=== PATIENT | female | born 1945 | race Caucasian/White ===

== ENCOUNTER 2019-03-08 17:02 | Emergency (ER) | payer MEDICARE, SELFPAY ==
[2019-03-08] VITALS (32 sets, daily range): BP systolic 98–159; BP diastolic 54–104; PULSE 61–102; RESP 11–33; TEMP 36.6–36.9; O2SAT 89–98
--- NOTE | 2019-03-08 17:01 | W.ED.GENAD ---
Discharge Plan Disposition Patient Disposition: HOME Condition: Improving Discharge Details Chief Complaint: Nausea/Vomit/Diar Clinical Impression: Nausea vomiting and diarrhea, Abdominal pain Primary Care Provider: Conrad Flanagan ED Provider: Tamica Birmingham Home Meds and New Rx's Prescriptions: New prochlorperazine maleate [Compazine] 10 mg tablet 10 mg PO Q8H PRN (Reason: nausea and vomiting) Qty: 6 RF: 0 Continued sertraline 50 MG tablet 100 mg PO HS RF: 0 albuterol sulfate [Proventil HFA] 6.7 GM HFA aerosol inhaler 2 puff Inhalation QID PRN PRNQty: 1 RF: 6 simvastatin 40 MG tablet 40 mg PO QPM RF: 0 cilostazol [Pletal] 50 MG tablet 100 mg PO BID RF: 0 zolpidem 10 MG tablet 10 mg PO HS RF: 0 aspirin 81 MG tablet,delayed release (DR/EC) 81 mg PO HS RF: 0 cyanocobalamin (vitamin B-12) [Vitamin B-12] 1,000 mcg Tablet 1,000 mcg PO DAILY RF: 0 amlodipine 5 mg Tablet 5 mg PO DAILY RF: 0 gabapentin 100 mg Capsule 100 mg PO TID RF: 0 prednisolone 5 mg Tablet 2.5 mg PO Q OTHER DAY RF: 0 Discharge Instructions Instructions: Acute Nausea and Vomiting (ED), Acute Diarrhea (ED), Abdominal Pain (ED) Additional Instructions: Take the Compazine as needed and directed for any nausea or vomiting. Drink plenty of fluids and get plenty of rest. You will receive a call from care management regarding a follow-up appointment with a primary care doctor next week. Return to the emergency department if you develop any worsening or new concerning symptoms. Discharge Data Discharge Physician: Tamica Birmingham Medical Decision Making 73-year-old female with history of COPD, AAA, who presents with nausea, vomiting and diarrhea with lower abdominal pain for the past 2 days. Afebrile. She appears nontoxic. Oxygen saturation 91% on room air, she is a chronic smoker, not on home oxygen. She denies chest pain or shortness of breath. Abdomen soft and nontender. Considering patient's complaint of intermittent abdominal pain with history of AAA, and her age, will place an IV, check screening labs, urinalysis, EKG chest x-ray and CT abdomen and pelvis. 1900 --labs and imaging reviewed and unremarkable. Normal white blood cell count. Potassium 3.4. Lactate 1. Magnesium slightly low at 1.7. Troponin normal. Lipase normal. Chest x-ray notes possible right apical opacity versus atelectasis. CT abdomen and pelvis negative for acute abdominal process. UA pending. She has no complaint of cough, shortness of breath, fever, and normal vital signs, do not suspect pneumonia at this time patient is agreeable. 1944 --urinalysis negative for infection. Patient states she feels much better and is requesting to go home. Will send home with 2 tabs of Compazine as well as prescription. She is staying in the area until May. Patient placed on care management list to arrange for follow-up appointment with a primary care doctor in the next 1 to 2 weeks for reevaluation. Patient was unable to give a stool sample here but can follow-up with the primary care doctor for this if needed. She is advised to return with any worsening symptoms. Medical Records Medical records reviewed: Yes I reviewed the patient's medical records. Imaging Data Radiologic Study: Radiologist's impression: CT Abdomen and Pelvis With Contrast EXAM DATE/TIME: 03/08/2019 5:09 PM CLINICAL HISTORY: 73 years old, female; Nausea and other: Diarrhea; Abdominal pain; Localized; Patient HX: Nausea, lower abd pain, diarrhea TECHNIQUE: Imaging protocol: Axial computed tomography images of the abdomen and pelvis with intravenous contrast. Coronal and sagittal reformatted images were created and reviewed. COMPARISON: CT NECK CHEST ABD WO 03/29/2014 7:20 PM FINDINGS: Lungs: Right posterior lower lobe parenchymal opacity, consistent with pneumonitis and/or atelectasis. Clear left lung base. Pleural space: Tiny posterior pleural effusions. Liver: Small cyst within the right hepatic lobe. Gallbladder and bile ducts: Status post cholecystectomy. Extrahepatic and intrahepatic bile duct dilatation, likely secondary to post cholecystectomy state. Correlate with signs and symptoms of biliary obstruction. Pancreas: Unremarkable. No ductal dilation. Spleen: Unremarkable. No splenomegaly. Adrenals: Normal. No mass. Kidneys and ureters: Unremarkable. No stones. No hydronephrosis. Stomach and bowel: Diffuse fat density wall thickening throughout the colon. This may be seen with chronic inflammatory bowel disease as well as secondary to patient body habitus. No pericolonic inflammatory changes are identified. Indeterminate congested high density rim foci within the colon and distal small bowel. No bowel obstruction. Small gastric hiatus hernia. Appendix: No evidence of appendicitis. Intraperitoneal space: Unremarkable. No free air. No significant fluid collection. Vasculature: Fusiform aneurysm of the infrarenal abdominal aorta with an AP diameter of 3.2 cm. Severe atherosclerosis throughout the abdominal aorta and branch vessels. Lymph nodes: Unremarkable. No enlarged lymph nodes. Bladder: Unremarkable as visualized. Reproductive: Unremarkable as visualized. Bones/joints: No acute fracture. Soft tissues: Unremarkable. IMPRESSION: 1. Fat density wall thickening throughout the colon. This may be seen in the setting of chronic inflammatory bowel disease, as well as secondary to body habitus. 2. Indeterminate congested high density foci within the small bowel and colon without obstruction. 3. Infrarenal abdominal aortic aneurysm, measuring 3.2 cm in AP diameter. 4. Right lower lobe opacity, consistent with pneumonitis and/or atelectasis. XR Chest, 2 Views EXAM DATE/TIME: 03/08/2019 5:09 PM CLINICAL HISTORY: 73 years old, female; Other: Hypoxia, nausea TECHNIQUE: Imaging protocol: XR of the chest, 2 views. COMPARISON: CR CHEST 2 VIEWS PA,LAT 02/09/2016 1:26 PM FINDINGS: Lungs: The lung volumes are increased, consistent with COPD. There is added opacity in the medial right upper lobe, suspicious for right apical pneumonia and/or atelectasis. Followup imaging to confirm resolution of this abnormality is recommended as clinically warranted. Pleural space: No pleural effusion or pneumothorax. Heart/Mediastinum: Mild cardiomegaly, unchanged. Bones/joints: Unremarkable. IMPRESSION: 1. COPD. 2. Right apical opacity suspicious for apical pneumonia and/or atelectasis. Followup imaging to confirm resolution of this abnormality is recommended as clinically warranted. Lab Data Lab results reviewed: Yes I reviewed the patient's lab results. Laboratory Tests Range/Units 03/08/19 03/08/19 03/08/19 17:17 17:17 17:17 WBC (4.4-10.8) k/cumm 6.07 RBC (4.00-5.20) m/cumm 4.02 Hgb (12.0-15.5) g/dL 12.4 Hct (36.0-46.0) % 38.3 MCV (80-95) fL 95.3 H MCH (27.0-33.0) pg 30.8 MCHC (32.0-36.0) g/dL 32.4 RDW (11.7-14.6) % 14.0 Plt Count (130-400) x1000/uL 230 MPV (8.0-11.0) fL 9.4 Immature Gran % 0.5 Neutrophils % 89.1 Lymphocytes % 7.4 Monocytes % 2.8 Eosinophils % 0.0 Basophils % 0.2 Absolute Neutrophils (1.2-6.7) k/cumm 5.41 Absolute Lymphocytes (1.2-3.4) k/cumm 0.45 L Absolute Monocytes (0.11-0.7) k/cumm 0.17 Absolute Eosinophils (0.0-0.7) k/cumm 0.00 Absolute Basophils (0.0-0.2) k/cumm 0.01 Sodium (136-145) mmol/L 138 Potassium (3.5-5.1) mmol/L 3.4 L Chloride (98-107) mmol/L 101 Carbon Dioxide (21.0-32.0) mmol/L 24.8 Anion Gap (3-11) mmol/L 12.2 H BUN (7-18) mg/dL 12 Creatinine (0.55-1.02) mg/dL 1.16 H Estimated GFR/1.73 m2 (mL/min/1.73m2) 45.92 Glucose (70-100) mg/dL 104 H Lactate (0.6-1.4) mmol/l Calcium (8.5-10.1) mg/dL 8.2 L Magnesium (1.8-2.4) mg/dL 1.7 L Total Bilirubin (0.2-1.0) mg/dL 0.2 AST (15-37) U/L 20 ALT (12-78) U/L 14 Alkaline Phosphatase (46-116) U/L 69 Troponin I (0.00-0.06) ng/mL < 0.05 Total Protein (6.4-8.2) g/dL 6.2 L Albumin (3.4-5.0) g/dL 3.0 L Lipase (73-393) U/L 100 Urine Color (Yellow) Urine Clarity (Clear) Urine pH (5-8) Ur Specific [place] (1.005-1.025) Urine Protein (Negative) mg/dL Urine Ketones (Negative) mg/dL Urine Blood (Negative) Urine Nitrite (Negative) Urine Bilirubin (Negative) Urine Urobilinogen (Up TO 0.2) EU/dL Ur Leukocyte Esterase (Negative) Urine RBC (0-2) Urine WBC (0-5) HPF Ur Epithelial Cells (Negative) HPF Urine Crystals (Negative) HPF Urine Bacteria (Negative) HPF Urine Casts (Negative) LPF Urine Mucus (Negative) Urine Other (Negative) Ur Culture Indicated? Urine Glucose (Negative) mg/dL Range/Units 03/08/19 03/08/19 17:17 19:29 WBC (4.4-10.8) k/cumm RBC (4.00-5.20) m/cumm Hgb (12.0-15.5) g/dL Hct (36.0-46.0) % MCV (80-95) fL MCH (27.0-33.0) pg MCHC (32.0-36.0) g/dL RDW (11.7-14.6) % Plt Count (130-400) x1000/uL MPV (8.0-11.0) fL Immature Gran % Neutrophils % Lymphocytes % Monocytes % Eosinophils % Basophils % Absolute Neutrophils (1.2-6.7) k/cumm Absolute Lymphocytes (1.2-3.4) k/cumm Absolute Monocytes (0.11-0.7) k/cumm Absolute Eosinophils (0.0-0.7) k/cumm Absolute Basophils (0.0-0.2) k/cumm Sodium (136-145) mmol/L Potassium (3.5-5.1) mmol/L Chloride (98-107) mmol/L Carbon Dioxide (21.0-32.0) mmol/L Anion Gap (3-11) mmol/L BUN (7-18) mg/dL Creatinine (0.55-1.02) mg/dL Estimated GFR/1.73 m2 (mL/min/1.73m2) Glucose (70-100) mg/dL Lactate (0.6-1.4) mmol/l 1.0 Calcium (8.5-10.1) mg/dL Magnesium (1.8-2.4) mg/dL Total Bilirubin (0.2-1.0) mg/dL AST (15-37) U/L ALT (12-78) U/L Alkaline Phosphatase (46-116) U/L Troponin I (0.00-0.06) ng/mL Total Protein (6.4-8.2) g/dL Albumin (3.4-5.0) g/dL Lipase (73-393) U/L Urine Color (Yellow) Yellow Urine Clarity (Clear) Clear Urine pH (5-8) 6.0 Ur Specific [place] (1.005-1.025) 1.015 Urine Protein (Negative) mg/dL 30 H Urine Ketones (Negative) mg/dL 15 H Urine Blood (Negative) Small H Urine Nitrite (Negative) Negative Urine Bilirubin (Negative) Negative Urine Urobilinogen (Up TO 0.2) EU/dL 0.2 Ur Leukocyte Esterase (Negative) Negative Urine RBC (0-2) 3-5 H Urine WBC (0-5) HPF Negative Ur Epithelial Cells (Negative) HPF Rare Urine Crystals (Negative) HPF Negative Urine Bacteria (Negative) HPF Few Urine Casts (Negative) LPF Negative Urine Mucus (Negative) Moderate Urine Other (Negative) Negative Ur Culture Indicated? No Urine Glucose (Negative) mg/dL Negative ECG Data Interpretation: Rate of 71, sinus. Right bundle branch block which appears new compared to EKG available here from 2016. No acute ST elevation or depression. QTc 469. QRS 132. HPI General Mode of arrival: EMS. Date/Time Provider Initiated Documentation: 03/08/19 17:07. Limitations to Documentation: no limitations. Information obtained by: patient. HPI Narrative: Patient is a 73-year-old female with history of COPD, hypertension, hyperlipidemia, AAA and cholecystectomy and hysterectomy who presents with nausea, vomiting, diarrhea and chills for the past 2 days. She states she is only vomited small amounts couple times and has mainly been clear or bile. She states her diarrhea has been watery and brown. She has not taken her temperature and is not sure of the fever. She states she has had intermittent lower abdominal discomfort but denies any at present. She denies any recent travel, recent antibiotics or sick contacts. She denies chest pain or shortness of breath. Related Data Home Medications Medication Instructions Recorded Confirmed cilostazol [Pletal] 100 mg PO BID 03/29/14 03/08/19 simvastatin 40 mg PO QPM 03/29/14 03/08/19 zolpidem 10 mg PO HS 03/29/14 03/08/19 aspirin 81 mg PO HS 04/21/14 03/08/19 sertraline 100 mg PO HS tab-cap 02/12/16 03/08/19 albuterol sulfate [Proventil HFA] 2 puff INHALATION QID PRN PRN #1 04/13/16 03/08/19 [email or web address].[email or web address] amlodipine 5 mg PO DAILY 03/08/19 03/08/19 cyanocobalamin (vitamin B-12) 1,000 mcg PO DAILY 03/08/19 03/08/19 [Vitamin B-12] gabapentin 100 mg PO TID 03/08/19 03/08/19 prednisolone 2.5 mg PO Q OTHER DAY 03/08/19 03/08/19 prochlorperazine maleate 10 mg PO Q8H PRN #6 tab 03/08/19 [Compazine] Previous Rx's Medication Instructions Recorded prochlorperazine maleate 10 mg PO Q8H PRN #6 tab 03/08/19 [Compazine] Allergies Allergy/AdvReac Type Severity Reaction Status Date / Time Penicillins Allergy Severe Asthma Unverified 04/13/16 10:23 attack per Pt lidocaine AdvReac Severe Dizziness/L Unverified 04/13/16 10:27 ightheade Sulfa (Sulfonamide AdvReac Intermediate Wheezing, Unverified 04/13/16 10:23 Antibiotics) rash Review of Systems Review of Systems All systems reviewed & are unremarkable except as noted in HPI and below Constitutional Reports as per HPI, Denies chills and Denies fever(s) Eyes Denies blurry vision ENT Denies dizziness, Denies sore throat and Denies throat swelling Cardiovascular Denies chest pain and Denies dyspnea Respiratory Denies cough and Denies dyspnea Gastrointestinal Reports abdominal pain, Reports diarrhea and Reports vomiting Genitourinary Denies hematuria and Denies dysuria Musculoskeletal Denies back pain and Denies numbness Integumentary/Breasts Denies lesions and Denies rash Neurologic Denies dizziness, Denies focal weakness and Denies numbness Allergic/Immunologic Denies throat swelling [facility] Medical History Abdominal aortic aneurysm Cholelithiasis COPD (chronic obstructive pulmonary disease) Depressed GERD (gastroesophageal reflux disease) Hiatal hernia Hyperlipidemia Surgical History Abdominal hysterectomy Cholecystectomy Endoscopy Intra-Articular, Open Family History Mother Personal history of malignant neoplasm Father No problems noted. Brother No problems noted. Brother No problems noted. Grandfather No problems noted. Grandfather No problems noted. Grandmother Heart disease Asthma Grandmother No problems noted. Son Aneurysm Stroke Son Depression Daughter No problems noted. FAMILY HISTORY Kidney stones Gallstones COPD (chronic obstructive pulmonary disease) Social History Smoking/Tobacco Use Status: Current every day Alcohol Intake: never Drug use: Never Substance use type: does not use Do you feel safe at home: Yes Do you feel safe in your relationship?: Yes Exam Const General: cooperative and no acute distress HENMT Head: normal to inspection Face and sinus: normal facial exam Eyes General: appearance normal, both eyes and all related structures EOM: EOM intact bilaterally Neck Neck: normal visual inspection and No submandibular swelling Lymphatic: no lymphadenopathy noted Chest Chest: normal inspection of the chest and no tenderness Resp Effort & Inspection: normal respiratory effort and able to speak in complete sentences Auscultation: clear to auscultation bilaterally Cardio Rate: regular rate Rhythm: regular rhythm GI Inspection: normal to inspection Palpation: soft, not firm, not rigid and nontender Auscultation: normal bowel sounds Skin General skin exam: no rashes or lesions noted Neuro General: alert, awake and oriented x3 Cognition: normal cognition Speech: speech normal Motor: muscle tone normal throughout Sensory Exam: no sensory deficits noted Extrem General: normal to inspection, full ROM, normal capillary refill, no calf tenderness bilaterally and no edema Psych Appearance: grossly normal Mental Status: mental status grossly normal Speech and Movement: speech and movement normal Affect: normal affect
--- NOTE | 2019-03-08 17:07 | DI.CT_ITS ---
SYMPTOM/DIAGNOSIS: NAUSEA, LOWER ABD PAIN, DIARRHEA CT ABDOMEN AND PELVIS: Post contrast examination was performed. Small bilateral pleural effusions are seen. There is an infiltrate seen in the right lung base. This may represent atelectasis or pneumonia. The liver is normal in size. There is hepatic cysts present. No suspicious mass is seen. The portal, superior mesenteric and splenic veins are patent. The patient is status post cholecystectomy. Dilatation of the common duct likely reflects post cholecystectomy changes. The pancreas, spleen and adrenal glands are unremarkable. The kidneys are unremarkable as is the urinary bladder. The reproductive organs are unremarkable as visualized. The abdominal aorta shows atherosclerosis. There is a 3.2 cm infrarenal abdominal aortic aneurysm. No significant abdominal or pelvic adenopathy, ascites or pneumoperitoneum is seen. There is diffuse bowel wall thickening which is of low density throughout the colon. This can be seen with an inflammatory bowel disease. No evidence of bowel obstruction is present. No findings to suggest an acute appendicitis are present. High density material is seen within the lumen of the distal small bowel and colon. This likely reflects ingested material. No acute osseous abnormalities identified. IMPRESSION: 1. Fat density bowel wall thickening throughout the colon. This can be seen with inflammatory bowel disease or secondary to body habitus. 2. Presumed ingested high density material within the small bowel and colon. No evidence of obstruction. 3. 3.2 cm infrarenal abdominal aortic aneurysm. 4. Right lower lobe opacity in the lungs suspicious for pneumonia or atelectasis.
[2019-03-08] MEDS: Normal Saline 250 ML IV (17:21)
[2019-03-08 17:32] LABS: Abs Immature Grans 0.03 k/cumm (0.0-0.09); Absolute Basophil Count 0.01 k/cumm (0.0-0.2); Absolute Lymphocyte Count 0.45 k/cumm (1.2-3.4); Absolute Monocyte Count 0.17 k/cumm (0.11-0.7); Absolute Neutrophil Count 5.41 k/cumm (1.2-6.7); Basophils % 0.2; HCT 38.3 % (36.0-46.0); HGB 12.4 g/dL (12.0-15.5); Immature Grans % 0.5; Lymphocytes % 7.4; Mean Corp. HGB Concentration 32.4 g/dL (32.0-36.0); Mean Corpuscular Hemoglobin 30.8 pg (27.0-33.0); Mean Corpuscular Volume 95.3 fL (80-95); Mean Platelet Volume 9.4 fL (8.0-11.0); Monocytes % 2.8; Neutrophils % 89.1; Platelet Count 230 x1000/uL (130-400); RBC 4.02 m/cumm (4.00-5.20); White Blood Cell Count 6.07 k/cumm (4.4-10.8)
[2019-03-08 17:50] LABS: Lipase 100 U/L (73-393)
[2019-03-08 17:58] LABS: ALT 14 U/L (12-78); AST 20 U/L (15-37); Alkaline Phosphatase 69 U/L (46-116); Anion Gap 12.2 mmol/L (3-11); BUN 12 mg/dL (7-18); Bilirubin, Total 0.2 mg/dL (0.2-1.0); CO2 24.8 mmol/L (21.0-32.0); CREATININE 1.16 mg/dL (0.55-1.02); Calcium 8.2 mg/dL (8.5-10.1); Chloride 101 mmol/L (98-107); Estimated GFR 45.92 (mL/min/1.73m2); Glucose 104 mg/dL (70-100); Magnesium 1.7 mg/dL (1.8-2.4); Potassium 3.4 mmol/L (3.5-5.1); Sodium 138 mmol/L (136-145); Total Protein 6.2 g/dL (6.4-8.2); Troponin I < 0.05 ng/mL (0.00-0.06)
[2019-03-08] MEDS: Omnipaque 350 MG/ML 100 ML BTL IJ (18:46)
--- NOTE | 2019-03-08 18:54 | DI.RAD_ITS ---
SYMPTOM/DIAGNOSIS: HYPOXIA, NAUSEA, R/O ACUTE DISEASE CHEST X-RAY: Portable AP view. Comparison 02/09/16 The heart is enlarged but unchanged. Pulmonary vasculature is within normal limits. There is increased opacity in the right lung apex medially. This may be due to patient positioning. Right upper lobe infiltrate or mass cannot be excluded. The lungs are otherwise clear. No effusions or pneumothoraces are identified. There is hyperexpansion of the lungs consistent with COPD. IMPRESSION: Right apical opacity medially. This may be due to patient positioning. A right upper lobe infiltrate cannot be excluded. A follow up examination to document resolution of the finding is recommended.
--- NOTE | 2019-03-08 19:05 | DI.VRAD_ITS ---
EXAM: XR Chest, 2 Views EXAM DATE/TIME: 03/08/2019 5:09 PM CLINICAL HISTORY: 73 years old, female; Other: Hypoxia, nausea TECHNIQUE: Imaging protocol: XR of the chest, 2 views. COMPARISON: CR CHEST 2 VIEWS PA,LAT 02/09/2016 1:26 PM FINDINGS: Lungs: The lung volumes are increased, consistent with COPD. There is added opacity in the medial right upper lobe, suspicious for right apical pneumonia and/or atelectasis. Followup imaging to confirm resolution of this abnormality is recommended as clinically warranted. Pleural space: No pleural effusion or pneumothorax. Heart/Mediastinum: Mild cardiomegaly, unchanged. Bones/joints: Unremarkable. IMPRESSION: 1. COPD. 2. Right apical opacity suspicious for apical pneumonia and/or atelectasis. Followup imaging to confirm resolution of this abnormality is recommended as clinically warranted. Dictated and Authenticated by: Soto Hummel MD. Ordering:NAOMI Davey MD
--- NOTE | 2019-03-08 19:14 | DI.VRAD_ITS ---
EXAM: CT Abdomen and Pelvis With Contrast EXAM DATE/TIME: 03/08/2019 5:09 PM CLINICAL HISTORY: 73 years old, female; Nausea and other: Diarrhea; Abdominal pain; Localized; Patient HX: Nausea, lower abd pain, diarrhea TECHNIQUE: Imaging protocol: Axial computed tomography images of the abdomen and pelvis with intravenous contrast. Coronal and sagittal reformatted images were created and reviewed. COMPARISON: CT NECK CHEST ABD WO 03/29/2014 7:20 PM FINDINGS: Lungs: Right posterior lower lobe parenchymal opacity, consistent with pneumonitis and/or atelectasis. Clear left lung base. Pleural space: Tiny posterior pleural effusions. Liver: Small cyst within the right hepatic lobe. Gallbladder and bile ducts: Status post cholecystectomy. Extrahepatic and intrahepatic bile duct dilatation, likely secondary to post cholecystectomy state. Correlate with signs and symptoms of biliary obstruction. Pancreas: Unremarkable. No ductal dilation. Spleen: Unremarkable. No splenomegaly. Adrenals: Normal. No mass. Kidneys and ureters: Unremarkable. No stones. No hydronephrosis. Stomach and bowel: Diffuse fat density wall thickening throughout the colon. This may be seen with chronic inflammatory bowel disease as well as secondary to patient body habitus. No pericolonic inflammatory changes are identified. Indeterminate congested high density rim foci within the colon and distal small bowel. No bowel obstruction. Small gastric hiatus hernia. Appendix: No evidence of appendicitis. Intraperitoneal space: Unremarkable. No free air. No significant fluid collection. Vasculature: Fusiform aneurysm of the infrarenal abdominal aorta with an AP diameter of 3.2 cm. Severe atherosclerosis throughout the abdominal aorta and branch vessels. Lymph nodes: Unremarkable. No enlarged lymph nodes. Bladder: Unremarkable as visualized. Reproductive: Unremarkable as visualized. Bones/joints: No acute fracture. Soft tissues: Unremarkable. IMPRESSION: 1. Fat density wall thickening throughout the colon. This may be seen in the setting of chronic inflammatory bowel disease, as well as secondary to body habitus. 2. Indeterminate congested high density foci within the small bowel and colon without obstruction. 3. Infrarenal abdominal aortic aneurysm, measuring 3.2 cm in AP diameter. 4. Right lower lobe opacity, consistent with pneumonitis and/or atelectasis. Dictated and Authenticated by: Soto Hummel MD. Ordering:NAOMI Davey MD
[2019-03-08 19:37] LABS: Bilirubin Negative (Negative); Blood Small (Negative); Clarity Clear (Clear); Glucose Negative (Negative); Ketones 15 mg/dL (Negative); Leukocyte Esterase Negative (Negative); Nitrite Negative (Negative); Specific Gravity 1.015 (1.005-1.025); Urobilinogen 0.2 EU/dL (Up TO 0.2)
[2019-03-08 19:47] LABS: Bacteria Few HPF (Negative); C & S Indicated? No; Casts Negative LPF (Negative); Crystals Negative HPF (Negative); Epithelial Cells Rare HPF (Negative); Mucus Moderate (Negative); Other Cells Negative (Negative); WBC Negative HPF (0-5)
[2019-03-08] MEDS: Prochlorperazine 10 MG TAB 20 MG PO (20:20)
== END 2019-03-08 20:23 | disposition home or self-care (01) ==
PROVIDERS: Emergency Provider Physician Assistant; PCP Emergency Medicine
DX: R11.2 Nausea with vomiting, unspecified (principal); R19.7 Diarrhea, unspecified; R10.30 Lower abdominal pain, unspecified; J44.9 Chronic obstructive pulmonary disease, unspecified; F17.210 Nicotine dependence, cigarettes, uncomplicated; R91.8 Other nonspecific abnormal finding of lung field; I10 Essential (primary) hypertension
CPT/HCPCS: 36415; 80053; 83690; 93005; 96360; 99285; 71046; 74177; 81003; 81015; 83605; 83735; 84484; 85025; 93010; J3490

== ENCOUNTER 2021-01-16 17:03 | Emergency (ER) | payer MEDICARE, SELFPAY ==
--- NOTE | 2021-01-16 17:00 | RT.EKG_ITS ---
APPROVED REPORT Exam: Resting ECG Reason for Exam: possible stroke Patient Location: E HR:62 bpm ECG Measurements Heart Rate 62 AXIS NV 97 P -21 QRSd 127 QRS -27 QT 453 T 33 QTc 459 Conclusion Sinus rhythm...normal P axis, V-rate 60- 99 Nonspecific intraventricular conduction delay...QRSd >115mS, not LBBB/RBBB I have reviewed and interpreted ECG and agree with software generated interpretation.
--- NOTE | 2021-01-16 17:08 | W.ED.GENAD ---
Discharge Plan Disposition Patient Disposition: AGAINST MEDICAL ADVICE Condition: Stable Discharge Details Clinical Impression: Dysphasia, Balance problem, TIA (transient ischemic attack) Primary Care Provider: Nivia Mendosa ED Provider: Tamica Birmingham Home Meds and New Rx's Prescriptions: No Action sertraline 50 MG tablet 100 mg PO HS RF: 0 albuterol sulfate [Proventil HFA] 6.7 GM HFA aerosol inhaler 2 puff Inhalation QID PRN PRNQty: 1 RF: 6 simvastatin 40 MG tablet 40 mg PO QPM RF: 0 cilostazol [Pletal] 50 MG tablet 100 mg PO BID RF: 0 zolpidem 10 MG tablet 10 mg PO HS RF: 0 aspirin 81 MG tablet,delayed release (DR/EC) 81 mg PO HS RF: 0 cyanocobalamin (vitamin B-12) [Vitamin B-12] 1,000 mcg Tablet 1,000 mcg PO DAILY RF: 0 gabapentin 100 mg Capsule 100 mg PO TID RF: 0 lisinopril 5 mg tablet 5 mg PO HS RF: 0 Discharge Instructions Instructions: Transient Ischemic Attack (ED) Additional Instructions: You are leaving the hospital AGAINST MEDICAL ADVICE. Your CT scan today did not note any evidence of an acute stroke, however your symptoms may still be the result of a stroke which may be found on additional imaging such as an MRI brain. It is recommended that you stay in the hospital for continued monitoring and likely a plan for an MRI of your brain during your admission to the hospital. Please continue your regular medications as directed. Call your primary care doctor on Monday morning to schedule a follow-up appointment for reevaluation. Return immediately to the emergency department if you develop any worsening or new concerning symptoms. Discharge Data Discharge Date/Time-TO BE ENTERED AT DEPARTURE: 01/16/21 20:05 Discharge Physician: Tamica Birmingham Medical Decision Making 75-year-old female with a history of CVA, COPD, hypertension, hyperlipidemia, GERD presents for slurred speech and feeling off balance since yesterday afternoon. Neighbors checked on patient today and noted her slurred speech and advised her to come to the emergency department. EKG notes a rate of 62, sinus, right bundle branch block, no STEMI. Patient appears comfortable. Patient appears to have a minimal right-sided facial droop and slurred speech. No other focal deficits. No pronator drift. Alert and oriented x3. Will obtain stat CT head, screening labs, EKG, x-rays. Patient is well outside the window for TPA if this is an ischemic CVA. Patient recommendation of staying in the hospital but she is refusing admission if needed. Labs and imaging reviewed. Normal white blood cell count. Electrolytes unremarkable. Troponin negative. Urinalysis negative. CTA head and neck negative for acute findings but notes moderate stenosis in multiple arteries. Chest x-ray negative for acute findings. Patient reassessed again and she is comfortable in no acute distress. Discussed with patient that I recommended admission overnight for monitoring and for plan for MRI brain to rule out acute CVA but patient is declining. The risks of and disability due to a missed or incomplete diagnoses explained and patient understands and would still like to leave. She demonstrates capacity make decisions. AMA form signed. Advised to follow up with the primary care doctor for re-evaluation. Usual and customary return precautions given prior to discharge. Medical Records Medical records reviewed: Yes I reviewed the patient's medical records. Imaging Data Radiologic Study: Radiologist's impression: CT Angiography Head With Contrast, Arteriography Exam date and time: 01/16/2021 5:38 PM Age: 75 years old Clinical indication: Speech disturbance; Slurred speech TECHNIQUE: Imaging protocol: Computed tomography angiography of the head with contrast. Exam focused on the arteries. 3D rendering (Not supervised by radiologist): MIP and/or 3D reconstructed images were created by the technologist. Contrast material: OMNIPAQUE 350; Contrast volume: 90 ml; Contrast route: INTRAVENOUS (IV); COMPARISON: No relevant prior studies available. FINDINGS: ANTERIOR CIRCULATION: Right internal carotid artery: Cavernous sinus arterial calcification. Intracranial segment is patent with no significant stenosis. No aneurysm. Right middle cerebral artery: Unremarkable. No occlusion or significant stenosis. No aneurysm. Right anterior cerebral artery: Unremarkable. No occlusion or significant stenosis. No aneurysm. Left internal carotid artery: Cavernous sinus arterial calcification. Intracranial segment is patent with no significant stenosis. No aneurysm. Left middle cerebral artery: Unremarkable. No occlusion or significant stenosis. No aneurysm. Left anterior cerebral artery: Unremarkable. No occlusion or significant stenosis. No aneurysm. POSTERIOR CIRCULATION: Right vertebral artery: No occlusion or significant stenosis. No aneurysm. Left vertebral artery: No occlusion or significant stenosis. No aneurysm. Basilar artery: Unremarkable. No occlusion or significant stenosis. No aneurysm. Right posterior cerebral artery: Unremarkable. No occlusion or significant stenosis. No aneurysm. Left posterior cerebral artery: Unremarkable. No occlusion or significant stenosis. No aneurysm. Brain: A few scattered small areas of decreased density in the periventricular white matter which are likely secondary to chronic ischemia from microvascular change. Scattered old lacunar infarcts in each basal ganglia region, the jaz, and the left thalamus. No acute intracranial hemorrhage on initial unenhanced images. Diffuse cerebral atrophy. Cerebral ventricles: Ventricular prominence in this patient with diffuse cerebral atrophy. Orbital cavity: Calcification within the right globe. Bones/joints: No acute fracture. Normal-variant incomplete fusion of the posterior arch of C1. Mastoid air cells: No mastoiditis. Soft tissues: Unremarkable. Paranasal sinuses: No significant disease of the paranasal sinuses. IMPRESSION: 1. No acute intracranial findings on initial unenhanced images. 2. Diffuse cerebral atrophy and age-related periventricular white matter changes. 3. CTA head within normal limits. No large vessel occlusion. CT Angiography Neck With Contrast Exam date and time: 01/16/2021 5:38 PM Age: 75 years old Clinical indication: Speech disturbance; Slurred speech TECHNIQUE: Imaging protocol: Computed tomography angiography of the neck with contrast. 3D rendering (Not supervised by radiologist): MIP and/or 3D reconstructed images were created by the technologist. Contrast material: OMNIPAQUE 350; Contrast volume: 90 ml; Contrast route: INTRAVENOUS (IV); COMPARISON: No relevant prior studies available. FINDINGS: Right common carotid artery: Scattered calcific plaque within the right common carotid artery without significant stenosis. Scattered calcific plaque in the region of the origin of the right common carotid artery producing 30-40% stenosis. Scattered calcific plaque within the remainder of the right common carotid artery without significant stenosis. Right internal carotid artery: Calcific plaque within the origin and proximal portion of the right internal carotid artery producing 50% stenosis. Right external carotid artery: No occlusion or stenosis of the origin. Left common carotid artery: Scattered calcific plaque within the left common carotid artery without significant stenosis. Left internal carotid artery: Minimal calcific plaque within the origin of the left internal carotid artery without stenosis. No arterial occlusion. Left external carotid artery: No occlusion or stenosis of the origin. Right vertebral artery: Calcific plaque within the right vertebral artery at the C4-C5 level producing mild to moderate focal stenosis. The remainder of each vertebral artery is patent. Left vertebral artery: No stenosis. No dissection or occlusion. Left subclavian artery: Extensive calcific plaque producing moderate to severe stenosis within the proximal left subclavian artery. Soft tissues: Normal. No significant soft tissue swelling. Bones/joints: Cervical spine degenerative changes. Normal-variant incomplete fusion of the posterior arch of C1. Lungs: Scarring in the region of each lung apex. Scattered small bulla within each superior lung. IMPRESSION: 1. Calcific plaque within the origin and proximal portion of the right internal carotid artery producing 50% stenosis. 2. Calcific plaque within the right vertebral artery at the C4-C5 level producing mild to moderate focal stenosis. 3. The remainder of each vertebral artery is patent. 4. Scattered calcific plaque in the region of the origin of the right common carotid artery producing 30-40% stenosis. 5. Extensive calcific plaque producing moderate to severe stenosis within the proximal left subclavian artery. Lab Data Lab results reviewed: Yes I reviewed the patient's lab results. Labs: Laboratory Tests Range/Units 01/16/21 01/16/21 01/16/21 17:15 17:15 17:15 WBC (4.4-10.8) 10^3/uL 8.61 RBC (3.93-5.22) 10^6/uL 3.98 Hgb (11.2-15.7) g/dL 12.5 Hct (36.0-46.0) % 38.2 MCV (80-95) fL 96.0 H MCH (27.0-33.0) pg 31.4 MCHC (32.0-36.0) % 32.7 RDW (11.7-14.6) % 13.9 Plt Count (130-400) 10^3/uL 419 H MPV (8.0-11.0) fL 9.1 Immature Gran % 0.2 Neutrophils % 55.7 Lymphocytes % 28.5 Monocytes % 6.5 Eosinophils % 8.5 Basophils % 0.6 Nucleated RBC % % 0 Absolute Neutrophils (1.2-6.7) 10^3/uL 4.80 Absolute Lymphocytes (1.2-3.4) 10^3/uL 2.45 Absolute Monocytes (0.1-0.8) 10^3/uL 0.56 Absolute Eosinophils (0.0-0.7) 10^3/uL 0.73 H Absolute Basophils (0.0-0.2) 10^3/uL 0.05 PT (9.3-11.0) sec 9.6 INR (0.9-1.1) 1.0 APTT (21.0-27.5) sec 22.6 Sodium (136-145) mmol/L 143 Potassium (3.5-5.1) mmol/L 4.0 Chloride (98-107) mmol/L 110 H Carbon Dioxide (21.0-32.0) mmol/L 23.8 Anion Gap (3-11) mmol/L 9.2 BUN (7-18) mg/dL 14 Creatinine (0.55-1.02) mg/dL 1.3 H Estimated GFR/1.73 m2 (mL/min/1.73m2) 40.04 Glucose (74-106) mg/dL 94 Calcium (8.5-10.1) mg/dL 9.0 Magnesium (1.8-2.4) mg/dL 1.8 Total Bilirubin (0.2-1.0) mg/dL 0.3 AST (15-37) U/L 14 L ALT (14-59) U/L 15 Alkaline Phosphatase (46-116) U/L 69 Troponin I (<0.06) ng/mL < 0.05 Total Protein (6.4-8.2) g/dL 7.2 Albumin (3.4-5.0) g/dL 3.9 Urine Color (Yellow) Urine Clarity (Clear) Urine pH (5-8) Ur Specific [place] (1.005-1.025) Urine Protein (Negative) mg/dL Urine Ketones (Negative) mg/dL Urine Blood (Negative) Urine Nitrite (Negative) Urine Bilirubin (Negative) Urine Urobilinogen (Up TO 0.2) EU/dL Ur Leukocyte Esterase (Negative) Urine Glucose (Negative) mg/dL Range/Units 01/16/21 18:45 WBC (4.4-10.8) 10^3/uL RBC (3.93-5.22) 10^6/uL Hgb (11.2-15.7) g/dL Hct (36.0-46.0) % MCV (80-95) fL MCH (27.0-33.0) pg MCHC (32.0-36.0) % RDW (11.7-14.6) % Plt Count (130-400) 10^3/uL MPV (8.0-11.0) fL Immature Gran % Neutrophils % Lymphocytes % Monocytes % Eosinophils % Basophils % Nucleated RBC % % Absolute Neutrophils (1.2-6.7) 10^3/uL Absolute Lymphocytes (1.2-3.4) 10^3/uL Absolute Monocytes (0.1-0.8) 10^3/uL Absolute Eosinophils (0.0-0.7) 10^3/uL Absolute Basophils (0.0-0.2) 10^3/uL PT (9.3-11.0) sec INR (0.9-1.1) APTT (21.0-27.5) sec Sodium (136-145) mmol/L Potassium (3.5-5.1) mmol/L Chloride (98-107) mmol/L Carbon Dioxide (21.0-32.0) mmol/L Anion Gap (3-11) mmol/L BUN (7-18) mg/dL Creatinine (0.55-1.02) mg/dL Estimated GFR/1.73 m2 (mL/min/1.73m2) Glucose (74-106) mg/dL Calcium (8.5-10.1) mg/dL Magnesium (1.8-2.4) mg/dL Total Bilirubin (0.2-1.0) mg/dL AST (15-37) U/L ALT (14-59) U/L Alkaline Phosphatase (46-116) U/L Troponin I (<0.06) ng/mL Total Protein (6.4-8.2) g/dL Albumin (3.4-5.0) g/dL Urine Color (Yellow) Yellow Urine Clarity (Clear) Clear Urine pH (5-8) 5.5 Ur Specific [place] (1.005-1.025) <= 1.005 Urine Protein (Negative) mg/dL Negative Urine Ketones (Negative) mg/dL Negative Urine Blood (Negative) Negative Urine Nitrite (Negative) Negative Urine Bilirubin (Negative) Negative Urine Urobilinogen (Up TO 0.2) EU/dL 0.2 Ur Leukocyte Esterase (Negative) Negative Urine Glucose (Negative) mg/dL Negative ECG Data Attestation: I personally reviewed and interpreted this ECG (s) as follows: Interpretation: Rate of 62, sinus, right 195, no STEMI, nondiagnostic. HPI General Mode of arrival: ambulatory. Date/Time Provider Initiated Documentation: 01/16/21 17:08. Limitations to Documentation: no limitations. Information obtained by: patient. HPI Narrative: Patient is a 75-year-old female with a history of CVA, hypertension, hyperlipidemia, COPD who presents for possible stroke since yesterday afternoon. Patient states yesterday she thought that she had slurred speech and right-sided weakness. She states she feels the symptoms are better today. She denies any right leg weakness but states she feels that mainly her right arm is weak when she tries to write or carry something. She states she noticed when she was walking upstairs she felt that she was off balance. She states she thought her symptoms would go away so she did not seek medical care. Her neighbors visited her today and noted that she had slurred speech. She denies any fever, headache, blurry vision, chest pain, shortness of breath, abdominal pain, nausea, vomiting, diarrhea, urinary symptoms. Related Data Home Medications Medication Instructions Recorded Confirmed cilostazol [Pletal] 100 mg PO BID 03/29/14 01/16/21 simvastatin 40 mg PO QPM 03/29/14 01/16/21 zolpidem 10 mg PO HS 03/29/14 01/16/21 aspirin 81 mg PO HS 04/21/14 01/16/21 sertraline 100 mg PO HS tab-cap 02/12/16 01/16/21 albuterol sulfate [Proventil HFA] 2 puff INHALATION QID PRN PRN #1 04/13/16 01/16/21 hfa.aer.[email or web address] cyanocobalamin (vitamin B-12) 1,000 mcg PO DAILY 03/08/19 01/16/21 [Vitamin B-12] gabapentin 100 mg PO TID 03/08/19 01/16/21 lisinopril 5 mg PO HS 01/16/21 01/16/21 Allergies Allergy/AdvReac Type Severity Reaction Status Date / Time Penicillins Allergy Severe Asthma Unverified 01/16/21 17:23 attack per Pt lidocaine AdvReac Severe Dizziness/L Unverified 01/16/21 17:23 ightheade Sulfa (Sulfonamide AdvReac Intermediate Wheezing, Unverified 01/16/21 17:23 Antibiotics) rash General LAVERNE: 3 Review of Systems All systems reviewed & are unremarkable except as noted in HPI and below Constitutional Constitutional: Reports as per HPI, Denies chills and Denies fever(s) Eyes Eyes: Denies blurry vision ENT Ears, Nose, Mouth, and Throat: Denies dizziness, Denies sore throat and Denies throat swelling Cardiovascular Cardiovascular: Denies chest pain and Denies dyspnea Respiratory Respiratory: Denies cough and Denies dyspnea Gastrointestinal Gastrointestinal: Denies abdominal pain, Denies diarrhea and Denies vomiting Genitourinary Genitourinary: Denies hematuria and Denies dysuria Musculoskeletal Musculoskeletal: Denies back pain and Denies numbness Integumentary/Breasts Skin/Breast: Denies lesions and Denies rash Neurologic Neurologic: Reports abnormal speech, Denies dizziness, Reports localized weakness and Denies numbness Allergic/Immunologic Allergic/Immunologic: Denies throat swelling [facility] Medical History (Updated 01/16/21 @ 19:13 by Tamica Birmingham DO) Abdominal aortic aneurysm Cholelithiasis COPD (chronic obstructive pulmonary disease) Depressed GERD (gastroesophageal reflux disease) Hiatal hernia Hyperlipidemia Surgical History Abdominal hysterectomy Cholecystectomy Endoscopy Intra-Articular, Open Family History Mother Personal history of malignant neoplasm OVARIAN Father No problems noted. Brother No problems noted. Brother No problems noted. Grandfather No problems noted. Grandfather No problems noted. Grandmother Heart disease Asthma Grandmother No problems noted. Son Aneurysm Stroke Son Depression Daughter No problems noted. 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 Neck Neck: normal visual inspection and No submandibular swelling Lymphatic: no lymphadenopathy noted Chest Chest: normal inspection of the chest Resp Effort & Inspection: normal respiratory effort and able to speak in complete sentences Auscultation: clear to auscultation bilaterally Cardio Rate: regular rate Rhythm: regular rhythm GI Inspection: normal to inspection Palpation: soft, not firm, not rigid and nontender Auscultation: normal bowel sounds Skin General skin exam: no rashes or lesions noted Neuro General: patient alert, patient awake, patient oriented x3 and no meningeal signs Cranial Nerves: facial strength abnormal (R facial droop), tongue midline, gag reflex normal, hearing normal, able to rotate head bilaterally and able to elevate shoulders bilaterally Cognition: normal cognition Speech: abnormal speech slurred Motor: muscle tone normal throughout, strength 5/5 throughout and no pronator drift Sensory Exam: no sensory deficits noted Extrem General: normal to inspection, full ROM, capillary refill normal, no calf tenderness bilaterally and no edema Psych Appearance: grossly normal Mental Status: mental status grossly normal Speech and Movement: speech and movement normal Affect: normal affect
[2021-01-16 17:09] VITALS: BP 149/78; PULSE 63; RESP 17; TEMP 37.1; O2SAT 94
[2021-01-16 17:21] VITALS: RESP 23
--- NOTE | 2021-01-16 17:30 | DI.RAD_ITS ---
Exam(s) XR CHEST 2V PA LATERAL EXAM: XR CHEST 2V PA LATERAL CLINICAL HISTORY: possible stroke, r/o acute disease TECHNIQUE: COMPARISON: CT CT ABDOMEN PELVIS W from 03/08/2019 CR XR CHEST 2V PA LATERAL from 03/08/[address] BRAIN NECK CTA from 01/16/2021 FINDINGS: The heart is mildly enlarged. There are changes of pulmonary scarring as noted on prior examinations. No gross pleural effusion. No significant interval change in appearance comparison with prior chest radiographs of February 2019. IMPRESSION: RADIATION DOSE DELIVERED: Total DLP
--- NOTE | 2021-01-16 17:30 | DI.CT_ITS ---
Exam(s) CT BRAIN NECK CTA EXAM: CT BRAIN NECK CTA CLINICAL HISTORY: r/o acute cva. TECHNIQUE: Imaging Protocol: Axial CT angiography was performed with multi-slice acquisition and mu lti-planar and/or 3D reconstructions. CONTRAST MATERIAL: Intravenous: Omnipaque 350 Contrast volume:structured data in ml COMPARISON: CT CT ABDOMEN PELVIS W from 03/08/2019 FINDINGS: CT angiography of the cervical cranial region was performed according to the usual protocol with intr avenous infusion of 100 cc of Omnipaque 350.. Initial noncontrast scanning of the head shows mild generalized cerebral atrophy, bilateral lacunar i nfarcts, and slight patchy decreased attenuation of periventricular white matter consistent with micr ovascular ischemic changes.. There is apparent biapical pulmonary scarring which has progressed somewhat since prior study of January 2016. Visualized portions of thoracic aorta and pulmonary arterial circulation are unremarkable. The re is no evidence of a cervical mass or adenopathy. The tracheal laryngeal structures appear intact. The origins of the common carotid arteries are poorly visualized due to motion. Visualized common ca rotids appear intact to the level of the bifurcation bilaterally. On the right, there is a stenosis of the origin of the right internal carotid artery estimated at 50-70 percent of the luminal diameter of the vessel. On the left there is no significant ICA stenosis. Right vertebral artery shows calcific plaque formation in the mid cervical region with stenosis estim ated at less than 50 percent of the luminal diameter of the vessel. No left vertebral stenosis. The origins of both vertebral arteries are poorly visualized due to motion artifact. Intracranial portions of the internal carotid arteries appear normal except for mild calcific plaque in the cavernous portions with no evidence of aneurysm, stenosis, or dissection. Intracranial vertebral arteries and basilar artery appear normal with no evidence of aneurysm, stenos is or dissection. No aneurysm identified in the region of the [id number]. The anterior, middle, and posterior cer ebral arteries and major branches appear intact with no evidence of aneurysm, stenosis, or dissection . No enhancing brain lesion identified. IMPRESSION: 50-70 percent luminal diameter stenosis proximal right internal carotid artery. Less than 50 percent luminal diameter stenosis mid cervical right vertebral artery. No other significant findings. RADIATION DOSE DELIVERED: 1,613.87mGy.cmTotal DLP 1,613.87mGy.cm Total DLP DATA REPOSITORY: All CT scans at this facility are submitted to the National Radiology Data Registry (NRDR) Dose Index Registry (DIR) with the [employer] ([employer]). RADIATION OPTIMIZATION: All CT scans at this facility use at least one of these dose optimization te chniques: automated exposure control; mA and/or kV adjustment per patient size (includes targeted exa ms where dose is matched to clinical indication); or iterative reconstruction.
[2021-01-16 17:51] LABS: Abs Immature Grans 0.02 10^3/uL (0.0-0.06); Absolute Basophil Count 0.05 10^3/uL (0.0-0.2); Absolute Eosinophil Count 0.73 10^3/uL (0.0-0.7); Absolute Lymphocyte Count 2.45 10^3/uL (1.2-3.4); Absolute Monocyte Count 0.56 10^3/uL (0.1-0.8); Basophils % 0.6; Eosinophils % 8.5; HCT 38.2 % (36.0-46.0); HGB 12.5 g/dL (11.2-15.7); Immature Grans % 0.2; Lymphocytes % 28.5; MCH 31.4 pg (27.0-33.0); MCHC 32.7 % (32.0-36.0); MPV 9.1 fL (8.0-11.0); Monocytes % 6.5; Neutrophils % 55.7; Nucleated RBC 0 %; Platelet Count 419 10^3/uL (130-400); RBC 3.98 10^6/uL (3.93-5.22); RDW 13.9 % (11.7-14.6); RDW-SD 49.1 fL; WBC 8.61 10^3/uL (4.4-10.8)
[2021-01-16 18:13] LABS: ALT 15 U/L (14-59); AST 14 U/L (15-37); Albumin 3.9 g/dL (3.4-5.0); Alkaline Phosphatase 69 U/L (46-116); Anion Gap 9.2 mmol/L (3-11); BUN 14 mg/dL (7-18); Bilirubin, Total 0.3 mg/dL (0.2-1.0); CO2 23.8 mmol/L (21.0-32.0); CREATININE 1.3 mg/dL (0.55-1.02); Chloride 110 mmol/L (98-107); Estimated GFR 40.04 (mL/min/1.73m2); Glucose 94 mg/dL (74-106); Magnesium 1.8 mg/dL (1.8-2.4); Sodium 143 mmol/L (136-145); Total Protein 7.2 g/dL (6.4-8.2)
[2021-01-16 18:20] LABS: Troponin I < 0.05 ng/mL (<0.06)
[2021-01-16] MEDS: Omnipaque 350 MG/ML 100 ML BTL IJ (18:25)
[2021-01-16] MEDS: Normal Saline - Diluent 50 ML VIAL IV (18:26)
[2021-01-16 18:30] VITALS: PULSE 49; RESP 19
[2021-01-16 18:40] VITALS: PULSE 54; RESP 20
[2021-01-16 18:47] LABS: PTT Activated 22.6 sec (21.0-27.5); Prothrombin Time 9.6 sec (9.3-11.0)
[2021-01-16 18:50] VITALS: PULSE 53; RESP 13; O2SAT 97
[2021-01-16] MEDS: Normal Saline 250 ML IV (18:53)
--- NOTE | 2021-01-16 18:55 | DI.VRAD_ITS ---
PROCEDURE INFORMATION: Exam: CT Angiography Head With Contrast, Arteriography Exam date and time: 01/16/2021 5:38 PM Age: 75 years old Clinical indication: Speech disturbance; Slurred speech TECHNIQUE: Imaging protocol: Computed tomography angiography of the head with contrast. Exam focused on the arteries. 3D rendering (Not supervised by radiologist): MIP and/or 3D reconstructed images were created by the technologist. Contrast material: OMNIPAQUE 350; Contrast volume: 90 ml; Contrast route: INTRAVENOUS (IV); COMPARISON: No relevant prior studies available. FINDINGS: ANTERIOR CIRCULATION: Right internal carotid artery: Cavernous sinus arterial calcification. Intracranial segment is patent with no significant stenosis. No aneurysm. Right middle cerebral artery: Unremarkable. No occlusion or significant stenosis. No aneurysm. Right anterior cerebral artery: Unremarkable. No occlusion or significant stenosis. No aneurysm. Left internal carotid artery: Cavernous sinus arterial calcification. Intracranial segment is patent with no significant stenosis. No aneurysm. Left middle cerebral artery: Unremarkable. No occlusion or significant stenosis. No aneurysm. Left anterior cerebral artery: Unremarkable. No occlusion or significant stenosis. No aneurysm. POSTERIOR CIRCULATION: Right vertebral artery: No occlusion or significant stenosis. No aneurysm. Left vertebral artery: No occlusion or significant stenosis. No aneurysm. Basilar artery: Unremarkable. No occlusion or significant stenosis. No aneurysm. Right posterior cerebral artery: Unremarkable. No occlusion or significant stenosis. No aneurysm. Left posterior cerebral artery: Unremarkable. No occlusion or significant stenosis. No aneurysm. Brain: A few scattered small areas of decreased density in the periventricular white matter which are likely secondary to chronic ischemia from microvascular change. Scattered old lacunar infarcts in each basal ganglia region, the jaz, and the left thalamus. No acute intracranial hemorrhage on initial unenhanced images. Diffuse cerebral atrophy. Cerebral ventricles: Ventricular prominence in this patient with diffuse cerebral atrophy. Orbital cavity: Calcification within the right globe. Bones/joints: No acute fracture. Normal-variant incomplete fusion of the posterior arch of C1. Mastoid air cells: No mastoiditis. Soft tissues: Unremarkable. Paranasal sinuses: No significant disease of the paranasal sinuses. IMPRESSION: 1. No acute intracranial findings on initial unenhanced images. 2. Diffuse cerebral atrophy and age-related periventricular white matter changes. 3. CTA head within normal limits. No large vessel occlusion. PROCEDURE INFORMATION: Exam: CT Angiography Neck With Contrast Exam date and time: 01/16/2021 5:38 PM Age: 75 years old Clinical indication: Speech disturbance; Slurred speech TECHNIQUE: Imaging protocol: Computed tomography angiography of the neck with contrast. 3D rendering (Not supervised by radiologist): MIP and/or 3D reconstructed images were created by the technologist. Contrast material: OMNIPAQUE 350; Contrast volume: 90 ml; Contrast route: INTRAVENOUS (IV); COMPARISON: No relevant prior studies available. FINDINGS: Right common carotid artery: Scattered calcific plaque within the right common carotid artery without significant stenosis. Scattered calcific plaque in the region of the origin of the right common carotid artery producing 30-40% stenosis. Scattered calcific plaque within the remainder of the right common carotid artery without significant stenosis. Right internal carotid artery: Calcific plaque within the origin and proximal portion of the right internal carotid artery producing 50% stenosis. Right external carotid artery: No occlusion or stenosis of the origin. Left common carotid artery: Scattered calcific plaque within the left common carotid artery without significant stenosis. Left internal carotid artery: Minimal calcific plaque within the origin of the left internal carotid artery without stenosis. No arterial occlusion. Left external carotid artery: No occlusion or stenosis of the origin. Right vertebral artery: Calcific plaque within the right vertebral artery at the C4-C5 level producing mild to moderate focal stenosis. The remainder of each vertebral artery is patent. Left vertebral artery: No stenosis. No dissection or occlusion. Left subclavian artery: Extensive calcific plaque producing moderate to severe stenosis within the proximal left subclavian artery. Soft tissues: Normal. No significant soft tissue swelling. Bones/joints: Cervical spine degenerative changes. Normal-variant incomplete fusion of the posterior arch of C1. Lungs: Scarring in the region of each lung apex. Scattered small bulla within each superior lung. IMPRESSION: 1. Calcific plaque within the origin and proximal portion of the right internal carotid artery producing 50% stenosis. 2. Calcific plaque within the right vertebral artery at the C4-C5 level producing mild to moderate focal stenosis. 3. The remainder of each vertebral artery is patent. 4. Scattered calcific plaque in the region of the origin of the right common carotid artery producing 30-40% stenosis. 5. Extensive calcific plaque producing moderate to severe stenosis within the proximal left subclavian artery. REFERENCES: NASCET CRITERIA. The degree of internal carotid artery stenosis is based on NASCET criteria. Normal is no stenosis. Mild is less than 50% stenosis. Moderate is 50-69% stenosis. Severe is 70% to 99% stenosis. Total occlusion is no detectable patent lumen. Dictated and Authenticated by: Tor Gutierrez MD. Ordering:NAOMI Davey MD
--- NOTE | 2021-01-16 19:09 | DI.VRAD_ITS ---
PROCEDURE INFORMATION: Exam: XR Chest Exam date and time: 01/16/2021 6:18 PM Age: 75 years old Clinical indication: Other: Possible stroke TECHNIQUE: Imaging protocol: XR of the chest. Views: 2 views. Total images: 2 COMPARISON: CR XR CHEST 2V PA LATERAL 03/08/2019 6:49 PM FINDINGS: Lungs: Lungs are mildly hyperinflated. No consolidation. Pulmonary vishal: Unremarkable contours. Pleural spaces: No pleural effusion. No pneumothorax. Heart/Mediastinum: Unremarkable contours. No cardiomegaly. Vasculature: The aorta is tortuous. Diaphragm: Eventration of the right hemidiaphragm. Bones/joints: Unremarkable. Intraperitoneal space: Visualized upper abdomen is unremarkable. IMPRESSION: No evidence of aspiration pneumonia. Dictated and Authenticated by: Binu Burton MD. Ordering:NAOMI Davey MD
[2021-01-16] MEDS: Aspirin 325 MG TAB PO (19:27)
[2021-01-16 19:48] LABS: Bilirubin Negative (Negative); Blood Negative (Negative); Clarity Clear (Clear); Glucose Negative (Negative); Ketones Negative (Negative); Leukocyte Esterase Negative (Negative); Nitrite Negative (Negative); Specific Gravity <= 1.005 (1.005-1.025); Urobilinogen 0.2 EU/dL (Up TO 0.2); pH 5.5 (5-8)
== END 2021-01-16 20:05 | disposition left against medical advice (07) ==
PROVIDERS: Emergency Provider Physician Assistant; PCP Internal Medicine
DX: R47.02 Dysphasia (principal); G45.9 Transient cerebral ischemic attack, unspecified; R26.81 Unsteadiness on feet; R93.0 Abnormal findings on diagnostic imaging of skull and head, not elsewhere classified; Z53.29 Procedure and treatment not carried out because of patient's decision for other reasons; Z86.73 Personal history of transient ischemic attack (TIA), and cerebral infarction without residual deficits
CPT/HCPCS: 36415; 36416; 70496; 70498; 80053; 82962; 93005; 96360; 99285; 71046; 81003; 83735; 84484; 85025; 85610; 85730; 93010; J3490

== ENCOUNTER 2021-02-16 10:59 | Emergency (ER) | payer MEDICARE, SELFPAY ==
[2021-02-16] VITALS (21 sets, daily range): BP systolic 113–145; BP diastolic 37–108; PULSE 58–77; RESP 16–34; TEMP 36.7; O2SAT 89–95
--- NOTE | 2021-02-16 10:45 | RT.EKG_ITS ---
APPROVED REPORT Exam: Resting ECG Reason for Exam: nausea weakness Patient Location: E HR:65 bpm ECG Measurements Heart Rate 65 AXIS UT 122 P 55 QRSd 125 QRS -30 QT 491 T 48 QTc 510 Conclusion Sinus rhythm...normal P axis, V-rate 60- 99 Probable left atrial enlargement...P >50mS, <-0.10mV V1 Right bundle branch block...QRSd>120, terminal axis(90,270). No STEMI. RBBB. No change from previous. I have reviewed and interpreted ECG and agree with software generated interpretation.
[2021-02-16 11:23] LABS: Abs Immature Grans 0.02 10^3/uL (0.0-0.06); Absolute Basophil Count 0.01 10^3/uL (0.0-0.2); Absolute Lymphocyte Count 0.34 10^3/uL (1.2-3.4); Absolute Monocyte Count 0.11 10^3/uL (0.1-0.8); Absolute Neutrophil Count 4.16 10^3/uL (1.2-6.7); Basophils % 0.2; HCT 39.3 % (36.0-46.0); HGB 12.7 g/dL (11.2-15.7); Immature Grans % 0.4; Lymphocytes % 7.3; MCH 31.4 pg (27.0-33.0); MCHC 32.3 % (32.0-36.0); MPV 9.4 fL (8.0-11.0); Monocytes % 2.4; Neutrophils % 89.7; Nucleated RBC 0 %; Platelet Count 237 10^3/uL (130-400); RBC 4.05 10^6/uL (3.93-5.22); RDW 13.2 % (11.7-14.6); RDW-SD 47.3 fL; WBC 4.64 10^3/uL (4.4-10.8)
--- NOTE | 2021-02-16 11:23 | ED.GENADUL_ITS ---
Discharge Plan Disposition Patient Disposition: HOME Condition: Stable Discharge Details Clinical Impression: Colitis, Nausea vomiting and diarrhea Primary Care Provider: Nivia Mendosa ED Provider: Christin Montesinos Home Meds and New Rx's Prescriptions: New dicyclomine 20 mg tablet 20 mg PO BID PRN (Reason: abdominal discomfort) Qty: 7 RF: 0 Continued sertraline 50 MG tablet 100 mg PO HS RF: 0 albuterol sulfate [Proventil HFA] 6.7 GM HFA aerosol inhaler 2 puff Inhalation QID PRN PRNQty: 1 RF: 6 simvastatin 40 MG tablet 40 mg PO QPM RF: 0 aspirin 81 MG tablet,delayed release (DR/EC) 81 mg PO HS RF: 0 cyanocobalamin (vitamin B-12) [Vitamin B-12] 1,000 mcg Tablet 1,000 mcg PO DAILY RF: 0 lisinopril 5 mg tablet 5 mg PO HS RF: 0 No Action cilostazol [Pletal] 50 MG tablet 100 mg PO BID RF: 0 zolpidem 10 MG tablet 10 mg PO HS RF: 0 gabapentin 100 mg Capsule 100 mg PO TID RF: 0 cholecalciferol (vitamin D3) [Vitamin D3] 50 mcg (2,000 unit) Capsule 50 mcg PO DAILY RF: 0 nitrofurantoin monohyd/m-cryst [Macrobid] 100 mg capsule 100 mg PO BID Qty: 10 RF: 0 ondansetron HCl [Zofran] 4 mg tablet 4 mg PO Q8H PRNQty: 10 RF: 0 Discharge Instructions Instructions: Acute Nausea and Vomiting (ED) Additional Instructions: Follow up with primary care provider in 3-5 days. Return to ED sooner if any worsening or concerns. Increase oral fluids. Take the Zofran as directed up to 3 times daily 20 minutes before meals as needed for nausea. Drink Gatorade or similar for the next 2 to 3 days while having diarrhea symptoms. Return to the ED for any worsening nausea vomiting diarrhea, abdominal pain, fever or any concerns. Please collect the stool sample as directed and bring into the lab to be tested. If you are unable to bring them within [address] it on ice or place in the refrigerator. Clear liquids for the next 2 to 3 days advance as tolerated. Eat a bland or brat diet bananas, rice, apples, toast. Referrals: Nivia Mendosa [Primary Care Provider] - 5 days Discharge Data Discharge Date/Time-TO BE ENTERED AT DEPARTURE: 02/16/21 14:27 Medical Decision Making 75-year-old female past medical history of AAA, COPD, GERD, hyperlipidemia, depression and diagnosis of TIA approximately 1 month ago presents to the ER via EMS with chief complaint of nausea vomiting diarrhea and low-grade fever. Reportedly symptoms began at 6:30 PM last night was having bed this morning covered in diarrhea and emesis. Patient reports symptoms began with chills last night and then began with nausea vomiting diarrhea. Patient denies any headache, blurry vision however she is blind in her right eye, denies any chest pain, shortness of breath abdominal pain. Patient denies any swimming denies being on antibiotics for last few months denies any sick contacts. She is a current everyday smoker. EKG was reviewed by myself and Tamica Birmingham ER attending, please see her official review and report. Stool negative guaiac which was performed by staff software engineer. Patient presents soaking wet clothes with diarrhea change and cleaned by staff software engineer upon arrival. Patient reevaluation no complaints at this time. Awakens easily to verbal stimulus. Vital signs are stable FINDINGS: ABDOMEN: Lung Bases: Normal where visualized. Liver: Normal density. Stable hepatic cyst. Portal, Superior Mesenteric, and Splenic Veins: Unremarkable. Gallbladder and Biliary Tract: Status post cholecystectomy. Stable intra and extrahepatic biliary ductal dilatation. The common duct measures 1.0 cm. This is unchanged. Pancreas: Normal density, no abnormal calcifications or inflammatory process. Spleen: Normal. Adrenals: No masses seen. Kidneys: Normal size, contour and axis. Nonobstructing 2 mm stone in the midpole of the right kidney. Nonobstructing stone in the midpole of the left kidney. No masses seen. Abdominal Aorta: 3.8 x 3.7 cm infrarenal abdominal aortic aneurysm. It previously measured 3.2 cm. Atherosclerosis. There is atherosclerosis of the right common iliac and external iliac arteries. There does appear to be complete occlusion of the right external iliac artery with reconstitution of the right femoral artery. Bowel: No evidence of bowel obstruction. There is again seen diffuse low- attenuation in the wall throughout the colon. There does appear to be focal focal pericolonic inflammatory changes in the splenic flexure suggesting colitis. This may be inflammatory or infectious. No appendicitis. Small hiatal hernia. Peritoneal Cavity: No ascites, collection or mesenteric inflammatory response. No free air. Lymph Nodes: Within normal limits. Bones: Within normal limits for the patient's age. Soft Tissues: Unremarkable. PELVIS: Bladder: Symmetric distention, no gross wall thickening. Reproductive Organs: Status post hysterectomy. Lymph Nodes: Within normal limits. Bones: Within normal limits for the patient's age. IMPRESSION: 1. Findings suspicious for inflammatory infectious colitis involving the splenic flexure. 2. Atherosclerosis in interval increase in size of the abdominal aortic aneurysm which now measures 3.8 x 3.7 cm. 3. 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 4. Bilateral nephrolithiasis. No hydronephrosis. 5. Results of this exam have been verbally communicated with provider. Discussed results with patient and family who verbalized understanding. Prescription was given for dicyclomine for stomach cramping discuss strict return instructions, verbalized understanding. Instructed to follow-up with PCP. This text was generated using [employer] system, please disregard any oddities of phrase or misspellings. HPI General Mode of arrival: EMS . Date/Time Provider Initiated Documentation: 02/16/21 11:00 . Information obtained by: patient, EMS and RN notes reviewed . HPI Narrative: 75-year-old female past medical history of AAA, COPD, GERD, hyperlipidemia, depression and diagnosis of TIA approximately 1 month ago presents to the ER via EMS with chief complaint of nausea vomiting diarrhea and low-grade fever. Reportedly symptoms began at 6:30 PM last night was having bed this morning covered in diarrhea and emesis. Patient reports symptoms began with chills last night and then began with nausea vomiting diarrhea. Patient denies any headache, blurry vision however she is blind in her right eye, denies any chest pain, shortness of breath abdominal pain. Patient denies any swimming denies being on antibiotics for last few months denies any sick contacts. She is a current everyday smoker.. Related Data Home Medications Medication Instructions Recorded Confirmed cilostazol [Pletal] 100 mg PO BID 03/29/14 02/17/21 simvastatin 40 mg PO QPM 03/29/14 02/17/21 zolpidem 10 mg PO HS 03/29/14 02/17/21 aspirin 81 mg PO HS 04/21/14 02/17/21 sertraline 100 mg PO HS tab-cap 02/12/16 02/17/21 albuterol sulfate [Proventil HFA] 2 puff INHALATION QID PRN PRN #1 04/13/16 02/17/21 [email or web address] cyanocobalamin (vitamin B-12) 1,000 mcg PO DAILY 03/08/19 02/17/21 [Vitamin B-12] gabapentin 100 mg PO TID 03/08/19 02/17/21 lisinopril 5 mg PO HS 01/16/21 02/17/21 dicyclomine 20 mg PO BID PRN #7 tab 02/16/21 02/17/21 cholecalciferol (vitamin D3) 50 mcg PO DAILY 02/17/21 02/17/21 [Vitamin D3] nitrofurantoin monohyd/m-cryst 100 mg PO BID #10 cap 02/17/21 [Macrobid] ondansetron HCl [Zofran] 4 mg PO Q8H PRN #10 tab 02/17/21 Previous Rx's Medication Instructions Recorded dicyclomine 20 mg PO BID PRN #7 tab 02/16/21 nitrofurantoin monohyd/m-cryst 100 mg PO BID #10 cap 02/17/21 [Macrobid] ondansetron HCl [Zofran] 4 mg PO Q8H PRN #10 tab 02/17/21 Allergies Allergy/AdvReac Type Severity Reaction Status Date / Time Penicillins Allergy Severe Asthma Unverified 02/17/21 12:55 attack per Pt lidocaine AdvReac Severe Dizziness/L Unverified 02/17/21 12:55 ightheade Sulfa (Sulfonamide AdvReac Intermediate Wheezing, Unverified 02/17/21 12:55 Antibiotics) rash General Stated Complaint: Nausea/Vomit/Diar LAVERNE: 3 PFSH Medical History Abdominal aortic aneurysm Cholelithiasis COPD (chronic obstructive pulmonary disease) Depressed GERD (gastroesophageal reflux disease) Hiatal hernia Hyperlipidemia Surgical History Abdominal hysterectomy Cholecystectomy Endoscopy Intra-Articular, Open Family History Mother Personal history of malignant neoplasm OVARIAN Father No problems noted. Brother No problems noted. Brother No problems noted. Grandfather No problems noted. Grandfather No problems noted. Grandmother Heart disease Asthma Grandmother No problems noted. Son Aneurysm Stroke Son Depression Daughter No problems noted. FAMILY HISTORY Kidney stones Gallstones COPD (chronic obstructive pulmonary disease) Social History Smoking/Tobacco Use Status: Current every day Tobacco Type: cigarettes Smoking risk assessment performed?: Yes Alcohol Intake: never Drug use: Never Substance use type: does not use Do you feel safe at home: Yes Do you feel safe in your relationship?: Yes Exam Narrative Exam Narrative: Constitutional: Alert and oriented x3. Appears stated age. Normal body habitus. Head: Normocephalic, no trauma. Eyes: Pupils PERRLA left eye, Red reflex noted to left eye, EOM's intact. Eyelids symmetrical without lesions, discharge, or swelling. Right eyes deviated to the right no red reflex noted patient reports baseline blindness in the right eye. ENT: Bilateral TM's WNL, External ear normal to inspection, no mastoid TTP, swelling, or erythema, Nasal turbinates WNL, no nasal discharge. Normal dentition, Posterior pharynx WNL, no exudate. Chest: RRR, Normal S1, S2, distal pulses intact. Resp: Lungs clear to auscultation bilaterally, no wheezes, rales, or rhonchi. Abdomen: Soft, nondistended nontender to palpation all 4 quadrants. Musculoskeletal: Normal gait, 5/5 strength to all four extremities. Skin: No suspicious rashes or lesions. Capillary refill less than 2 sec. Neurologic: Cranial nerves II-XII intact. Alert and oriented x 3. DTR's intact. Hematologic/Lymphatic: No ecchymosis, no lymphadenopathy. Course Vital Signs Vital signs: Vital Signs Temperature 36.7 C 02/16/21 11:05 Pulse 69 02/16/21 11:05 Respiratory Rate 22 02/16/21 11:05 Blood Pressure 145/59 H 02/16/21 11:05 Pulse Oximetry 95 02/16/21 11:05 Temperature 36.7 C 02/16/21 11:05 Temperature Source Skin 02/16/21 11:05 Pulse 69 02/16/21 11:05 Respiratory Rate 22 02/16/21 11:05 Respiratory Effort Non-Labored 02/16/21 11:05 Blood Pressure 145/59 H 02/16/21 11:05 Blood Pressure Position Supine 02/16/21 11:05 Pulse Oximetry 95 02/16/21 11:05 Oxygen Delivery Method Room Air 02/16/21 11:05 Oxygen Flow Rate 0 02/16/21 11:05 Pain Level 0 02/16/21 11:05
--- NOTE | 2021-02-16 11:30 | DI.CT_ITS ---
Exam(s) CT ABDOMEN PELVIS W EXAM: CT ABDOMEN PELVIS W CLINICAL HISTORY: NVD TECHNIQUE: Imaging Protocol: Axial computed tomography images with coronal and sagittal reformatted images were created and reviewed CONTRAST MATERIAL: Intravenous: Omnipaque 350 Contrast volume:81 mL Oral: No COMPARISON: CT CT ABDOMEN PELVIS W from 03/08/[address] BRAIN NECK CTA from 01/16/2021 FINDINGS: ABDOMEN: Lung Bases: Normal where visualized. Liver: Normal density. Stable hepatic cyst. Portal, Superior Mesenteric, and Splenic Veins: Unremarkable. Gallbladder and Biliary Tract: Status post cholecystectomy. Stable intra and extrahepatic biliary du ctal dilatation. The common duct measures 1.0 cm. This is unchanged. Pancreas: Normal density, no abnormal calcifications or inflammatory process. Spleen: Normal. Adrenals: No masses seen. Kidneys: Normal size, contour and axis. Nonobstructing 2 mm stone in the midpole of the right kidney. Nonobstructing stone in the midpole of the left kidney. No masses seen. Abdominal Aorta: 3.8 x 3.7 cm infrarenal abdominal aortic aneurysm. It previously measured 3.2 cm. Atherosclerosis. There is atherosclerosis of the right common iliac and external iliac arteries. The re does appear to be complete occlusion of the right external iliac artery with reconstitution of the right femoral artery. Bowel: No evidence of bowel obstruction. There is again seen diffuse low-attenuation in the wall thro ughout the colon. There does appear to be focal focal pericolonic inflammatory changes in the splenic flexure suggesting colitis. This may be inflammatory or infectious. No appendicitis. Small hiatal he rnia. Peritoneal Cavity: No ascites, collection or mesenteric inflammatory response. No free air. Lymph Nodes: Within normal limits. Bones: Within normal limits for the patient's age. Soft Tissues: Unremarkable. PELVIS: Bladder: Symmetric distention, no gross wall thickening. Reproductive Organs: Status post hysterectomy. Lymph Nodes: Within normal limits. Bones: Within normal limits for the patient's age. IMPRESSION: 1. Findings suspicious for inflammatory infectious colitis involving the splenic flexure. 2. Atherosclerosis in interval increase in size of the abdominal aortic aneurysm which now measures 3 .8 x 3.7 cm. 3. 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 4. Bilateral nephrolithiasis. No hydronephrosis. 5. Results of this exam have been verbally communicated with provider. RADIATION DOSE DELIVERED: 585.25mGy.cm Total DLP DATA REPOSITORY: All CT scans at this facility are submitted to the National Radiology Data Registry (NRDR) Dose Index Registry (DIR) with the [employer] (A[employer]). RADIATION OPTIMIZATION: All CT scans at this facility use at least one of these dose optimization te chniques: automated exposure control; mA and/or kV adjustment per patient size (includes targeted exa ms where dose is matched to clinical indication); or iterative reconstruction.
[2021-02-16 11:39] LABS: ALT 20 U/L (14-59); AST 25 U/L (15-37); Albumin 3.3 g/dL (3.4-5.0); Alkaline Phosphatase 57 U/L (46-116); BUN 13 mg/dL (7-18); Bilirubin, Total 0.2 mg/dL (0.2-1.0); CREATININE 1.1 mg/dL (0.55-1.02); Calcium 8.5 mg/dL (8.5-10.1); Chloride 106 mmol/L (98-107); Estimated GFR 48.55 (mL/min/1.73m2); Glucose 114 mg/dL (74-106); Magnesium 1.5 mg/dL (1.8-2.4); Potassium 3.6 mmol/L (3.5-5.1); Sodium 140 mmol/L (136-145); Total Protein 6.5 g/dL (6.4-8.2); Troponin I < 0.05 ng/mL (<0.06)
[2021-02-16 11:41] LABS: INR 1.1 (0.9-1.1); Prothrombin Time 10.6 sec (9.3-11.0)
[2021-02-16 11:47] LABS: Bilirubin Negative (Negative); Blood Trace-lysed (Negative); Clarity Clear (Clear); Glucose Negative (Negative); Ketones Negative (Negative); Leukocyte Esterase Negative (Negative); Nitrite Negative (Negative); Urobilinogen 0.2 EU/dL (Up TO 0.2)
[2021-02-16] MEDS: Ondansetron 4 MG/2 ML VIAL IVP (11:53)
[2021-02-16] MEDS: Normal Saline 1,000 ML 250 ML IV (11:55)
[2021-02-16 12:00] LABS: Bacteria Rare HPF (Negative); C & S Indicated? No; Casts Negative LPF (Negative); Crystals Negative HPF (Negative); Epithelial Cells Few HPF (Negative); Mucus Negative (Negative); Other Cells Negative (Negative); WBC Negative HPF (0-5)
[2021-02-16] MEDS: Normal Saline - Diluent 50 ML VIAL IV (12:30)
[2021-02-16] MEDS: Omnipaque 350 MG/ML 100 ML BTL IJ (12:30)
[2021-02-16] MEDS: Normal Saline Flush 10 ML SYR IVP (12:31)
[2021-02-16] MEDS: Ondansetron O.D.T. 4 MG TABEF, 3 TABS/BTL PO (14:14)
== END 2021-02-16 14:27 | disposition home or self-care (01) ==
PROVIDERS: Emergency Provider Registered Nurse Emergency; PCP Internal Medicine
DX: R11.2 Nausea with vomiting, unspecified (principal); K52.9 Noninfective gastroenteritis and colitis, unspecified
CPT/HCPCS: 36415; 51701; 80053; 87040; 93005; 96361; 96374; 99285; 74177; 81003; 81015; 83735; 84484; 85025; 85610; 93010; 99284; J2405; J3490

== ENCOUNTER 2021-02-17 12:48 | Emergency (ER) | payer MEDICARE, SELFPAY ==
[2021-02-17] VITALS (25 sets, daily range): BP systolic 140–163; BP diastolic 46–79; PULSE 54–89; RESP 16–34; TEMP 37.2; O2SAT 78–96
--- NOTE | 2021-02-17 12:45 | W.ED.GENAD ---
Discharge Plan Disposition Patient Disposition: HOME Condition: Stable Discharge Details Clinical Impression: Weakness, Acute UTI Primary Care Provider: Nivia Mendosa ED Provider: Jt Rodas Home Meds and New Rx's Prescriptions: New nitrofurantoin monohyd/m-cryst [Macrobid] 100 mg capsule 100 mg PO BID Qty: 10 RF: 0 ondansetron HCl [Zofran] 4 mg tablet 4 mg PO Q8H PRNQty: 10 RF: 0 Continued sertraline 50 MG tablet 100 mg PO HS RF: 0 albuterol sulfate [Proventil HFA] 6.7 GM HFA aerosol inhaler 2 puff Inhalation QID PRN PRNQty: 1 RF: 6 simvastatin 40 MG tablet 40 mg PO QPM RF: 0 cilostazol [Pletal] 50 MG tablet 100 mg PO BID RF: 0 zolpidem 10 MG tablet 10 mg PO HS RF: 0 aspirin 81 MG tablet,delayed release (DR/EC) 81 mg PO HS RF: 0 cyanocobalamin (vitamin B-12) [Vitamin B-12] 1,000 mcg Tablet 1,000 mcg PO DAILY RF: 0 gabapentin 100 mg Capsule 100 mg PO TID RF: 0 lisinopril 5 mg tablet 5 mg PO HS RF: 0 cholecalciferol (vitamin D3) [Vitamin D3] 50 mcg (2,000 unit) Capsule 50 mcg PO DAILY RF: 0 dicyclomine 20 mg tablet 20 mg PO BID PRN (Reason: abdominal discomfort) Qty: 7 RF: 0 Discharge Instructions Instructions: Urinary Tract Infection in Women (ED), Weakness (ED) Additional Instructions: Bactrim and Zofran as directed. Clear liquid diet, advance as tolerated. [place] foods such as bananas, rice, applesauce, tea, toast may be beneficial for your diarrhea. [id number] Imodium as directed. Plenty of fluids to avoid dehydration. Please watch for new or worsening symptoms and return to the ER for any concerns. I do recommend reaching out your primary care provider to discuss your ongoing symptoms and potential need for outpatient reevaluation. Unfortunately today you are unable to provide us with a stool sample for testing. Discharge Data Discharge Date/Time-TO BE ENTERED AT DEPARTURE: 02/17/21 15:32 Medical Decision Making 75-year-old female, past medical history that includes COPD, depression, GERD, hyperlipidemia, TIA, seen in our ER yesterday, diagnosed with colitis, and discharged home. Patient states that since going home she has had generalized weakness, continues to have diarrhea, has had decreased intake primarily secondary to nausea. She was discharged with Zofran but has not taken any Zofran. She typically lives in [facility] but during the summer [place] [facility] [place] Her is home during the week but comes to camp on the weekend, her daughter lives in [place], she presents today via EMS, a friend is accompanying her. She denies any fever, chest pain, shortness of breath abdominal pain, vomiting, black tarry stools or bright red blood in her stools. Clinically she appears well, nontoxic but slightly dry. Will obtain IV access, give IV fluids, Zofran, obtain CBC, CMP, lipase, urinalysis. She denies recent antibiotic use but given her ongoing diarrhea will obtain C. difficile and stool pathogens. Patient was initially given 500 cc of normal saline per EMS, given an additional liter here in the ER. She was given 4 IV Zofran upon reevaluation she reports no nausea whatsoever, feeling much improved, would like to trial p.o. intake. Will await initial laboratory values before we p.o. challenge her although low suspicion for acute abdomen based upon examination. Laboratory values are unremarkable for obvious emergent process, no significant trend when compared to yesterday. Urinalysis resulted as trace ketones, moderate blood, positive nitrates, 20-50 white cells. Many bacteria. Given her slight increase in urination, and her urinalysis which appears quite different from yesterday, I do believe treating for acute UTI is reasonable. Given her penicillin allergy, will give 1 dose of Macrobid now. Patient was observed in the ER for over 2 hours and unable to provide a stool sample. Given she is currently living [place] [facility], I did have our care management team come talk with the patient to see if additional resources could be provided. I had a transparent conversation both with patient and her friend. Given her ikjj-jz-nzyp ER visits, acute UTI, generalized weakness and nausea, I did offer her admission but she would prefer to be discharged back to her camp. She states that she feels dramatically improved after the Zofran, and in fact has been able to tolerate p.o. intake without difficulty. Patient's friend states that she feels comfortable bringing her back to the [place] in her current condition. I will provide her with additional Zofran tablets, a prescription for Macrobid, we discussed the importance of adequate hydration. Again, she was unable to provide a stool sample but will take [id number] Imodium for her diarrhea. Standard discharge and return precautions given. Encouraged her to follow-up with her primary care provider when she returns home from [place]. Patient has no additional questions or concerns and is comfortable with this plan. Medical Records Medical records reviewed: Yes I reviewed the patient's medical records. Lab Data Lab results reviewed: Yes I reviewed the patient's lab results. Labs: 02/17/21 14:35 Urine - Reflex from Ua Urine Culture - Pending Laboratory Tests Range/Units 02/17/21 02/17/21 02/17/21 13:08 13:08 14:35 WBC (4.4-10.8) 10^3/uL 4.46 RBC (3.93-5.22) 10^6/uL 3.83 L Hgb (11.2-15.7) g/dL 12.1 Hct (36.0-46.0) % 37.4 MCV (80-95) fL 97.7 H MCH (27.0-33.0) pg 31.6 MCHC (32.0-36.0) % 32.4 RDW (11.7-14.6) % 13.2 Plt Count (130-400) 10^3/uL 146 MPV (8.0-11.0) fL 10.0 Immature Gran % 0.4 Neutrophils % 90.9 Lymphocytes % 6.5 Monocytes % 2.0 Eosinophils % 0.0 Basophils % 0.2 Nucleated RBC % % 0 Absolute Neutrophils (1.2-6.7) 10^3/uL 4.05 Absolute Lymphocytes (1.2-3.4) 10^3/uL 0.29 L Absolute Monocytes (0.1-0.8) 10^3/uL 0.09 L Absolute Eosinophils (0.0-0.7) 10^3/uL 0.00 Absolute Basophils (0.0-0.2) 10^3/uL 0.01 Sodium (136-145) mmol/L 138 Potassium (3.5-5.1) mmol/L 3.7 Chloride (98-107) mmol/L 103 Carbon Dioxide (21.0-32.0) mmol/L 21.5 Anion Gap (3-11) mmol/L 13.5 H BUN (7-18) mg/dL 15 Creatinine (0.55-1.02) mg/dL 1.1 H Estimated GFR/1.73 m2 (mL/min/1.73m2) 48.55 Glucose (74-106) mg/dL 115 H Calcium (8.5-10.1) mg/dL 8.1 L Total Bilirubin (0.2-1.0) mg/dL 0.2 AST (15-37) U/L 47 H ALT (14-59) U/L 27 Alkaline Phosphatase (46-116) U/L 53 Total Protein (6.4-8.2) g/dL 6.2 L Albumin (3.4-5.0) g/dL 3.1 L Lipase (73-393) U/L 74 Urine Color (Yellow) Yellow Urine Clarity (Clear) Cloudy Urine pH (5-8) 6.0 Ur Specific Shubert (1.005-1.025) 1.025 Urine Protein (Negative) mg/dL 100 H Urine Ketones (Negative) mg/dL Trace H Urine Blood (Negative) Moderate H Urine Nitrite (Negative) Positive H Urine Bilirubin (Negative) Negative Urine Urobilinogen (Up TO 0.2) EU/dL 0.2 Ur Leukocyte Esterase (Negative) Negative Urine RBC (0-2) HPF 5-10 H Urine WBC (0-5) HPF 20-50 H Ur Epithelial Cells (Negative) HPF Rare Urine Crystals (Negative) HPF Negative Urine Bacteria (Negative) HPF Many Urine Casts (Negative) LPF 20-50 CoarseGranular Urine Mucus (Negative) Negative Urine Other (Negative) Rare Renal Ur Culture Indicated? Yes Urine Glucose (Negative) mg/dL Negative HPI General Mode of arrival: EMS. Date/Time Provider Initiated Documentation: 02/17/21 12:59. Limitations to Documentation: no limitations. Information obtained by: patient and EMS. HPI Narrative: This is a 75-year-old female, past medical history of aortic aneurysm, COPD, depression, GERD, hiatal hernia, TIA, presenting to the ER from her camp via EMS for evaluation of generalized weakness, continuation of diarrhea, and decreased oral intake. She is currently living [place] a [place] [facility] [place], lives in [place] the other three quarters of the year. Patient denies any fever, chest pain, shortness of breath, abdominal pain, vomiting, dysuria, back pain, bad food exposure or sick contacts. She reports maybe slight increase in urination. Patient was discharged yesterday with Zofran, has not taken any. Patient is concerned about dehydration as she reports decreased p.o. intake. Patient states that she continues to have diarrhea, multiple episodes since discharge, none with bright red blood in her stool or black tarry stools. Related Data Home Medications Medication Instructions Recorded Confirmed cilostazol [Pletal] 100 mg PO BID 03/29/14 02/17/21 simvastatin 40 mg PO QPM 03/29/14 02/17/21 zolpidem 10 mg PO HS 03/29/14 02/17/21 aspirin 81 mg PO HS 04/21/14 02/17/21 sertraline 100 mg PO HS tab-cap 02/12/16 02/17/21 albuterol sulfate [Proventil HFA] 2 puff INHALATION QID PRN PRN #1 04/13/16 02/17/21 hfa.aer.ad cyanocobalamin (vitamin B-12) 1,000 mcg PO DAILY 03/08/19 02/17/21 [Vitamin B-12] gabapentin 100 mg PO TID 03/08/19 02/17/21 lisinopril 5 mg PO HS 01/16/21 02/17/21 dicyclomine 20 mg PO BID PRN #7 tab 02/16/21 02/17/21 cholecalciferol (vitamin D3) 50 mcg PO DAILY 02/17/21 02/17/21 [Vitamin D3] nitrofurantoin monohyd/m-cryst 100 mg PO BID #10 cap 02/17/21 [Macrobid] ondansetron HCl [Zofran] 4 mg PO Q8H PRN #10 tab 02/17/21 Previous Rx's Medication Instructions Recorded dicyclomine 20 mg PO BID PRN #7 tab 02/16/21 nitrofurantoin monohyd/m-cryst 100 mg PO BID #10 cap 02/17/21 [Macrobid] ondansetron HCl [Zofran] 4 mg PO Q8H PRN #10 tab 02/17/21 Allergies Allergy/AdvReac Type Severity Reaction Status Date / Time Penicillins Allergy Severe Asthma Unverified 02/17/21 12:55 attack per Pt lidocaine AdvReac Severe Dizziness/L Unverified 02/17/21 12:55 ightheade Sulfa (Sulfonamide AdvReac Intermediate Wheezing, Unverified 02/17/21 12:55 Antibiotics) rash General LAVERNE: 3 Review of Systems Constitutional Constitutional: Reports fatigue, Denies fever(s) and Denies headache(s) ENT Ears, Nose, Mouth, and Throat: Denies headache(s) and Denies neck pain Cardiovascular Cardiovascular: Denies chest pain and Denies dyspnea Respiratory Respiratory: Denies cough and Denies dyspnea Gastrointestinal Gastrointestinal: Denies abdominal pain, Denies melena, Denies hematochezia, Reports diarrhea, Reports nausea and Denies vomiting Genitourinary Genitourinary: Denies dysuria Musculoskeletal Musculoskeletal: Denies back pain and Denies neck pain Integumentary/Breasts Skin/Breast: Denies rash Neurologic Neurologic: Denies headache(s) Endocrine Endocrine: Reports fatigue Hematologic/Lymphatic Hematologic/Lymphatic: Denies easy bleeding and Denies easy bruising [facility] Medical History Abdominal aortic aneurysm Cholelithiasis COPD (chronic obstructive pulmonary disease) Depressed GERD (gastroesophageal reflux disease) Hiatal hernia Hyperlipidemia Surgical History Abdominal hysterectomy Cholecystectomy Endoscopy Intra-Articular, Open Family History Mother Personal history of malignant neoplasm OVARIAN Father No problems noted. Brother No problems noted. Brother No problems noted. Grandfather No problems noted. Grandfather No problems noted. Grandmother Heart disease Asthma Grandmother No problems noted. Son Aneurysm Stroke Son Depression Daughter No problems noted. FAMILY HISTORY Kidney stones Gallstones COPD (chronic obstructive pulmonary disease) Social History Smoking/Tobacco Use Status: Current every day Tobacco Type: cigarettes Smoking risk assessment performed?: Yes Alcohol Intake: never Drug use: Never Substance use type: does not use Do you feel safe at home: Yes Do you feel safe in your relationship?: Yes Exam Const General: cooperative, healthy appearing, comfortable and no acute distress Orientation: alert, awake and oriented x3 [facility] Head: normal to inspection, normocephalic and atraumatic Face and sinus: normal facial exam Mouth: moist mucous membranes abnormal (Slightly dry) Eyes General: appearance normal, both eyes and all related structures Conjunctivae: conjunctivae normal Neck Neck: normal visual inspection, full ROM, trachea midline and supple Resp Effort & Inspection: normal respiratory effort and able to speak in complete sentences Auscultation: clear to auscultation bilaterally Cardio Rate: regular rate Rhythm: regular rhythm GI Inspection: normal to inspection Palpation: soft, not firm, no guarding, no pulsatile masses and nontender Auscultation: normal bowel sounds Back/Spine/Pelvis Back: No back tenderness Skin General skin exam: no rashes or lesions noted Neuro General: patient alert, patient awake, patient oriented x3, moves all extremities and no focal motor deficits Cognition: normal cognition Speech: speech normal Gait: normal gait Motor: muscle tone normal throughout and strength 5/5 throughout Sensory Exam: no sensory deficits noted Extrem General: normal to inspection, full ROM, capillary refill normal, no pedal edema and no calf tenderness Psych Appearance: grossly normal Mental Status: mental status grossly normal
[2021-02-17] MEDS: Ondansetron 4 MG/2 ML VIAL IVP (13:17)
[2021-02-17] MEDS: Normal Saline 1,000 ML 1000 ML IV (13:17)
[2021-02-17 13:18] LABS: Abs Immature Grans 0.02 10^3/uL (0.0-0.06); Absolute Basophil Count 0.01 10^3/uL (0.0-0.2); Absolute Lymphocyte Count 0.29 10^3/uL (1.2-3.4); Absolute Monocyte Count 0.09 10^3/uL (0.1-0.8); Absolute Neutrophil Count 4.05 10^3/uL (1.2-6.7); Basophils % 0.2; HCT 37.4 % (36.0-46.0); HGB 12.1 g/dL (11.2-15.7); Immature Grans % 0.4; Lymphocytes % 6.5; MCH 31.6 pg (27.0-33.0); MCHC 32.4 % (32.0-36.0); MCV 97.7 fL (80-95); Neutrophils % 90.9; Nucleated RBC 0 %; Platelet Count 146 10^3/uL (130-400); RBC 3.83 10^6/uL (3.93-5.22); RDW 13.2 % (11.7-14.6); RDW-SD 47.8 fL; WBC 4.46 10^3/uL (4.4-10.8)
[2021-02-17 13:31] LABS: ALT 27 U/L (14-59); AST 47 U/L (15-37); Albumin 3.1 g/dL (3.4-5.0); Alkaline Phosphatase 53 U/L (46-116); Anion Gap 13.5 mmol/L (3-11); BUN 15 mg/dL (7-18); Bilirubin, Total 0.2 mg/dL (0.2-1.0); CO2 21.5 mmol/L (21.0-32.0); CREATININE 1.1 mg/dL (0.55-1.02); Calcium 8.1 mg/dL (8.5-10.1); Chloride 103 mmol/L (98-107); Estimated GFR 48.55 (mL/min/1.73m2); Glucose 115 mg/dL (74-106); Lipase 74 U/L (73-393); Potassium 3.7 mmol/L (3.5-5.1); Sodium 138 mmol/L (136-145); Total Protein 6.2 g/dL (6.4-8.2)
[2021-02-17 14:43] LABS: Bilirubin Negative (Negative); Blood Moderate (Negative); Clarity Cloudy (Clear); Glucose Negative (Negative); Ketones Trace mg/dL (Negative); Leukocyte Esterase Negative (Negative); Nitrite Positive (Negative); Specific Gravity 1.025 (1.005-1.025); Urobilinogen 0.2 EU/dL (Up TO 0.2)
[2021-02-17 14:56] LABS: Bacteria Many HPF (Negative); C & S Indicated? Yes; Crystals Negative HPF (Negative); Epithelial Cells Rare HPF (Negative); Mucus Negative (Negative); Other Cells Rare Renal (Negative); WBC 20-50 HPF (0-5)
[2021-02-17] MEDS: MacroBID 100 MG CAP PO (15:03)
--- NOTE | 2021-02-17 16:13 | PDOC.ERCMPRO ---
- If Service Date Differs Date of service: 02/17/21 Time of Service: 16:13 Care Management Progress Note CM was asked by ED provider to see patient. The concern raised was that Maegan has been to the ED twice in 2 days for the same complaint and seems to be weak and in need of help. She is currently staying at her camp in [place] and is alone Monday through Monday. Her comes down on the weekend. Maegan is independent at baseline and able to perform ADLs. In conversation, CM asked Maegan if she considered returning home with her during the week until she is stronger. Maegan firmly stated that she wants to remain at her camp. She informed CM that her is not nice to her and she prefers to be alone. He does not hurt her, he is just loud and has some irritating behaviors. Maegan's next door neighbor from [place] was with her and agreed to help her and keep an eye on her. Yesterday Maegan was prescribed medications which she did not take. When asked why, she stated that she just didn't think of it. Her neighbor offered to remind her. Maegan was advised to continue drinking fluids and rest for a few day. She will be discharged home with her friend with no new services. She does not have any skilled need requiring home health and is not home bound.
== END 2021-02-17 15:32 | disposition home or self-care (01) ==
PROVIDERS: Emergency Provider Physician Assistant; PCP Internal Medicine
DX: N39.0 Urinary tract infection, site not specified (principal); R53.1 Weakness
CPT/HCPCS: 80053; 83690; 87077; 87493; 87505; 96361; 96374; 99284; 81003; 81015; 85025; 87086; 87186; 99283; J2405

== ENCOUNTER 2021-02-18 21:34 | Inpatient (IN) | payer MEDICARE, SELFPAY ==
[2021-02-18] VITALS (12 sets, daily range): BP systolic 103–155; BP diastolic 69–86; PULSE 76–85; RESP 17–40; TEMP 36.9; O2SAT 88–95
--- NOTE | 2021-02-18 21:33 | ED.GENADUL_ITS ---
Discharge Plan Discharge Details Chief Complaint: GenMedical Admit Date/Time: 02/20/21 09:31 Admit Provider: Yonatan Tomas Attending Provider: Yonatan Tomas Primary Care Provider: Nivia Mendosa ED Provider: Christin Montesinos Discharge Data Discharge Date/Time-TO BE ENTERED AT DEPARTURE: 02/18/21 23:25 Medical Decision Making 75 year old female presents to ED for the 3rd day in a row with chief complaint of fall out of bed. Patient was seen on February 16 diagnosed with colitis after a bout of explosive nausea vomiting diarrhea. Patient returned to the emergency room yesterday was diagnosed with a UTI prescribed Macrobid and was noted to have increased weakness and decreased p.o. intake. Tonight she was found on the floor by family after taking an Ambien prior to bed at approximately 7 PM. Patient's reports that they have been doing her Coke and Gatorade trying to push fluids as directed but reports increased weakness and sleepiness. Patient has a past medical history of abdominal aortic aneurysm, COPD, TIA/CVA, GERD, hyperlipidemia surgical history includes hysterectomy cholecystectomy. At this time work-up ordered including serial troponins CBC CMP head CT chest x- ray. Stool sample. CBC shows leukopenia white blood cell count is 2.24 RBC 3.88 platelet count is thrombocytopenic at 82 which is down from 146 yesterday sodium potassium within normal limits. Anion gap 11.4, BUN 15, creatinine 1.3 GFR is 40 glucose 113 calcium 8.4 magnesium 1.5 AST 83 ALT 42 alk phos 64 initial troponin less than 0.05 Due to thrombocytopenia will consider tick/Lyme panel also consider diarrhea as source for thrombocytopenia. COMPARISON: CT BRAIN NECK CTA 01/16/2021 5:50 PM FINDINGS: Brain: Stable lacunar infarct in the left basal ganglia. Lacunar infarct versus perivascular space in the left naylor radiata. Cerebral ventricles: No ventriculomegaly. Paranasal sinuses: Visualized sinuses are unremarkable. No fluid levels. Mastoid air cells: Visualized mastoid air cells are well aerated. 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 Bones/joints: Unremarkable. No acute fracture. Soft tissues: Unremarkable. IMPRESSION: No evidence for acute intracranial abnormality. Imaging protocol: XR of the chest. Views: 2 views. COMPARISON: CR XR CHEST 2V PA LATERAL 01/16/2021 6:14 PM FINDINGS: Lungs: No mass. No consolidation. Hyperinflated suggesting COPD. Stable interstitial changes. Pleural spaces: Unremarkable. No pleural effusion. No pneumothorax. Heart/Mediastinum: Unremarkable cardiomediastinal silhouette. No cardiomegaly. Bones/joints: Unremarkable. IMPRESSION: No evidence for acute cardiopulmonary disease 2303: Hospitalist paged. 2310: Spoke with Dr. Tomas regarding patient case and details he agrees to accept patient for admission ER holding orders placed has been informed of plan of care. IV fluids at this time are Normal Saline running at 150-hour. HPI General Mode of arrival: EMS . Date/Time Provider Initiated Documentation: 02/18/21 22:03 . Information obtained by: patient, family ( Binu), EMS, RN notes reviewed and old records reviewed . HPI Narrative: 75 year old female presents to ED for the 3rd day in a row with chief complaint of fall out of bed. Patient was seen on February 16 diagnosed with colitis after a bout of explosive nausea vomiting diarrhea. Patient returned to the emergency room yesterday was diagnosed with a UTI prescribed Macrobid and was noted to have increased weakness and decreased p.o. intake. Tonight she was found on the floor by family after taking an Ambien prior to bed at approximately 7 PM. Patient's reports that they have been doing her Coke and Gatorade trying to push fluids as directed but reports increased weakness and sleepiness. Patient has a past medical history of abdominal aortic aneurysm, COPD, TIA/CVA, GERD, hyperlipidemia surgical history includes hysterectomy cholecystectomy. Related Data Home Medications Medication Instructions Recorded Confirmed cilostazol [Pletal] 100 mg PO BID 03/29/14 02/18/21 zolpidem 10 mg PO HS 03/29/14 02/18/21 aspirin 81 mg PO HS 04/21/14 02/18/21 sertraline 100 mg PO HS tab-cap 02/12/16 02/18/21 albuterol sulfate [Proventil HFA] 2 puff INHALATION QID PRN PRN #1 04/13/16 02/18/21 hfa.aer.ad cyanocobalamin (vitamin B-12) 1,000 mcg PO DAILY 03/08/19 02/18/21 [Vitamin B-12] gabapentin 100 mg PO TID 03/08/19 02/18/21 lisinopril 5 mg PO HS 01/16/21 02/18/21 dicyclomine 20 mg PO BID PRN #7 tab 02/16/21 02/18/21 cholecalciferol (vitamin D3) 50 mcg PO DAILY 02/17/21 02/18/21 [Vitamin D3] nitrofurantoin monohyd/m-cryst 100 mg PO BID #10 cap 02/17/21 02/18/21 [Macrobid] ondansetron HCl [Zofran] 4 mg PO Q8H PRN #10 tab 02/17/21 02/18/21 atorvastatin 40 mg PO DAILY 02/19/21 02/19/21 Previous Rx's Medication Instructions Recorded dicyclomine 20 mg PO BID PRN #7 tab 02/16/21 nitrofurantoin monohyd/m-cryst 100 mg PO BID #10 cap 02/17/21 [Macrobid] ondansetron HCl [Zofran] 4 mg PO Q8H PRN #10 tab 02/17/21 Allergies Allergy/AdvReac Type Severity Reaction Status Date / Time Penicillins Allergy Severe Asthma Unverified 02/17/21 12:55 attack per Pt lidocaine AdvReac Severe Dizziness/L Unverified 02/17/21 12:55 ightheade Sulfa (Sulfonamide AdvReac Intermediate Wheezing, Unverified 02/17/21 12:55 Antibiotics) rash General LAVERNE: 3 Review of Systems Narrative: Constitutional: Negative for weight loss, appears somnolent, well groomed, normal body habitus, appears comfortable. HEENT: Denies blurry vision, nasal discharge, sore throat, trouble swallowing. Chest: Denies chest pain, palpitations, irregular rhythm, hypertension. Respiratory: Denies Shortness of breath, cough, hemoptysis. GI: Denies abdominal pain, constipation. Reports last episode of emesis last night, continue with mild diarrhea : Denies dysuria, hematuria, flank pain, rectal bleeding. Neuro: Denies blurry vision, headache or facial numbness. Hematologic: Denies easy bruising, intolerance to heat or cold, hair loss. Unobtainable due to mental status (Majority of the review systems obtained by and EMS) [facility] Medical History (Updated 02/21/21 @ 14:42 by Bhumi Childers NP) Abdominal aortic aneurysm Cholelithiasis COPD (chronic obstructive pulmonary disease) Depressed GERD (gastroesophageal reflux disease) Hiatal hernia Hyperlipidemia Surgical History Abdominal hysterectomy Cholecystectomy Endoscopy Intra-Articular, Open Family History Mother Personal history of malignant neoplasm OVARIAN Father No problems noted. Brother No problems noted. Brother No problems noted. Grandfather No problems noted. Grandfather No problems noted. Grandmother Heart disease Asthma Grandmother No problems noted. Son Aneurysm Stroke Son Depression Daughter No problems noted. FAMILY HISTORY Kidney stones Gallstones COPD (chronic obstructive pulmonary disease) Social History Smoking/Tobacco Use Status: Current every day Tobacco Type: cigarettes Smoking risk assessment performed?: Yes Alcohol Intake: never Drug use: Never Substance use type: does not use Do you feel safe at home: Yes Do you feel safe in your relationship?: Yes Exam Narrative Exam Narrative: Constitutional: Alert and oriented x1 somnolent ,appears stated age. Normal body habitus. Head: Normocephalic, no obvious trauma, no hematomas. 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 ENT: Bilateral TM's WNL, External ear normal to inspection, no mastoid TTP, swelling, or erythema, Nasal turbinates WNL, no nasal discharge. Normal dentition, Posterior pharynx WNL, no exudate. No alarcon sign no hemotympanum. Chest: RRR, Normal S1, S2, distal pulses intact. Resp: Lungs clear to auscultation bilaterally, no wheezes, rales, or rhonchi. Abdomen: Soft, nondistended nontender to palpation all 4 quadrants. Musculoskeletal: 5/5 strength to all four extremities. Unable to assess gait. Merchandising Team Lead are equal bilaterally. Skin: No suspicious rashes or lesions. Capillary refill less than 2 sec. Neurologic: Cranial nerves II-XII intact. ANO x1. No focal neuro deficits noted. No facial droop. Hematologic/Lymphatic: No ecchymosis, no lymphadenopathy.
--- NOTE | 2021-02-18 21:45 | RT.EKG_ITS ---
APPROVED REPORT Exam: Resting ECG Reason for Exam: Fall, Failure to thrive Patient Location: E HR:82 bpm ECG Measurements Heart Rate 82 AXIS UT [id number] P [id number] QRSd 126 QRS -28 QT 385 T 65 QTc 451 Conclusion Accelerated junctional rhythm...absent P waves, accele'd V-rate Right bundle branch block...QRSd>120, terminal axis(90,270) P waves do appear to be absent compared to 02/16/21 EKG Otherwise unchanged with RBBB No ST changes
[2021-02-18 21:55] LABS: Abs Immature Grans 0.02 10^3/uL (0.0-0.06); HCT 37.1 % (36.0-46.0); HGB 12.3 g/dL (11.2-15.7); MCH 31.7 pg (27.0-33.0); MCHC 33.2 % (32.0-36.0); MCV 95.6 fL (80-95); MPV 11.8 fL (8.0-11.0); Nucleated RBC 0 %; RBC 3.88 10^6/uL (3.93-5.22); RDW 13.1 % (11.7-14.6); RDW-SD 46.5 fL; WBC 2.24 10^3/uL (4.4-10.8)
[2021-02-18] MEDS: Normal Saline 1,000 ML 150 ML IV (21:59)
[2021-02-18 22:09] LABS: ALT 42 U/L (14-59); AST 83 U/L (15-37); Albumin 3.1 g/dL (3.4-5.0); Alkaline Phosphatase 64 U/L (46-116); Anion Gap 11.4 mmol/L (3-11); BUN 15 mg/dL (7-18); Bilirubin, Total 0.3 mg/dL (0.2-1.0); CO2 22.6 mmol/L (21.0-32.0); CREATININE 1.3 mg/dL (0.55-1.02); Calcium 8.4 mg/dL (8.5-10.1); Chloride 102 mmol/L (98-107); Estimated GFR 40.04 (mL/min/1.73m2); Glucose 113 mg/dL (74-106); Magnesium 1.5 mg/dL (1.8-2.4); Potassium 3.6 mmol/L (3.5-5.1); Sodium 136 mmol/L (136-145); Total Protein 6.3 g/dL (6.4-8.2); Troponin I < 0.05 ng/mL (<0.06)
[2021-02-18 22:11] LABS: Absolute Lymphocyte Count 0.65 10^3/uL (1.2-3.4); Absolute Monocyte Count 0.07 10^3/uL (0.1-0.8); Atypical Lymphocytes % 1; Bands % 4; Metamyelocytes % 1; Platelet Count 82 10^3/uL (130-400)
[2021-02-18 22:12] LABS: Diff Comment Manual Differential; RBC Morphology Normal
[2021-02-18 22:26] LABS: Source Nasal/Nares
--- NOTE | 2021-02-18 22:40 | DI.CT_ITS ---
Exam(s) CT HEAD WO EXAM: CT HEAD WO CLINICAL HISTORY: Fall. TECHNIQUE: Imaging Protocol: Axial computed tomography images with coronal and sagittal reformatted images were created and reviewed COMPARISON: CT CT BRAIN NECK CTA from 01/16/2021 FINDINGS: Ventricles and Extra axial spaces: Normal in size and morphology for the patient's age. Hemorrhage: None. Cerebral parenchyma: stable bilateral lacunar infarcts in the basal ganglia, left greater than right . No new infarcts visible. Midline shift: None. Brainstem/Cerebellum: Normal. Calvarium: Normal. Visualized Paranasal sinuses/Mastoids: Clear. Soft Tissues: Stable right globe calcifications. IMPRESSION: No acute intracranial process. RADIATION DOSE DELIVERED: 652.59mGy.cm Total DLP DATA REPOSITORY: All CT scans at this facility are submitted to the National Radiology Data Registry (NRDR) Dose Index Registry (DIR) with the [employer] (ACR). RADIATION OPTIMIZATION: All CT scans at this facility use at least one of these dose optimization te chniques: automated exposure control; mA and/or kV adjustment per patient size (includes targeted exa ms where dose is matched to clinical indication); or iterative reconstruction.
--- NOTE | 2021-02-18 22:52 | DI.RAD_ITS ---
Exam(s) XR CHEST 2V PA LATERAL EXAM: XR CHEST 2V PA LATERAL CLINICAL HISTORY: Fall, AMS TECHNIQUE: 2D digital imaging was performed. COMPARISON: CR,XR XR CHEST 2V PA LATERAL from 01/16/2021 FINDINGS: MEDIASTINUM: Mildly ectatic aorta with mural calcification. HEART: Within normal limits in size. PULMONARY VASCULATURE: Normal. LUNGS: Mild biapical scarring. Interstitial changes, stable. PLEURAL SPACE: No pleural effusion or pneumothorax. BONE:Unremarkable for age. IMPRESSION: No acute abnormality. DATA REPOSITORY: RADIATION DOSE DELIVERED:
--- NOTE | 2021-02-18 23:00 | DI.VRAD_ITS ---
PROCEDURE INFORMATION: Exam: CT Head Without Contrast Exam date and time: 02/18/2021 9:48 PM Age: 75 years old Clinical indication: Other: Fall TECHNIQUE: Imaging protocol: Computed tomography of the head without contrast. Radiation optimization: All CT scans at this facility use at least one of these dose optimization techniques: automated exposure control; mA and/or kV adjustment per patient size (includes targeted exams where dose is matched to clinical indication); or iterative reconstruction. COMPARISON: CT BRAIN NECK CTA 01/16/2021 5:50 PM FINDINGS: Brain: Stable lacunar infarct in the left basal ganglia. Lacunar infarct versus perivascular space in the left naylor radiata. Cerebral ventricles: No ventriculomegaly. Paranasal sinuses: Visualized sinuses are unremarkable. No fluid levels. Mastoid air cells: Visualized mastoid air cells are well aerated. 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 Bones/joints: Unremarkable. No acute fracture. Soft tissues: Unremarkable. IMPRESSION: No evidence for acute intracranial abnormality. Dictated and Authenticated by: Dominik Lr MD. Ordering:SAJAN Waller MD
--- NOTE | 2021-02-18 23:01 | DI.VRAD_ITS ---
PROCEDURE INFORMATION: Exam: XR Chest Exam date and time: 02/18/2021 10:20 PM Age: 75 years old Clinical indication: Other: Fall, AMS TECHNIQUE: Imaging protocol: XR of the chest. Views: 2 views. COMPARISON: CR XR CHEST 2V PA LATERAL 01/16/2021 6:14 PM FINDINGS: Lungs: No mass. No consolidation. Hyperinflated suggesting COPD. Stable interstitial changes. Pleural spaces: Unremarkable. No pleural effusion. No pneumothorax. Heart/Mediastinum: Unremarkable cardiomediastinal silhouette. No cardiomegaly. Bones/joints: Unremarkable. IMPRESSION: No evidence for acute cardiopulmonary disease. Dictated and Authenticated by: Dominik Lr MD. Ordering:SAJAN Waller MD
[2021-02-18 23:21] LABS: COVID-19 PCR Negative (Negative)
[2021-02-18] MEDS: MAGNESIUM SULFATE 1 GM/100 ML BAG IVPB (23:32)
[2021-02-19] VITALS (7 sets, daily range): BP systolic 107–150; BP diastolic 62–83; PULSE 53–76; RESP 16–24; TEMP 36.8–37.4; O2SAT 92–98
--- NOTE | 2021-02-19 00:23 | NUR.NOTE ---
Nursing Note: Patient requested that all bed railings be up while she is in bed at this time.
[2021-02-19] MEDS: Ondansetron 4 MG/2 ML VIAL IVP (00:37)
[2021-02-19] MEDS: Normal Saline Flush 10 ML SYR IVP ×2 (00:38→19:30)
[2021-02-19 01:07] LABS: Troponin I < 0.05 ng/mL (<0.06)
--- NOTE | 2021-02-19 06:59 | HPE_ITS ---
Date of service: 02/19/21 Time of Service: 06:59 Assessment and Plan Assessment and plan (1) Weakness: Status: Acute Assessment and plan: Etiology is unclear but could be related to her viral gastroenteritis. Will continue IV fluids, watch labs and monitor status. (2) Acute UTI: Status: Acute Assessment and plan: Urine culture is pending and her nitrofurantoin will be continued. (3) Hypomagnesemia: Status: Acute Assessment and plan: Repeat Mg level is pending today. (4) Thrombocytopenia: Status: Chronic Assessment and plan: Unknown etiology for this. Will recheck today. (5) Leukopenia: Status: Acute Assessment and plan: This may be related to her viral illness. Will recheck today. History of Present Illness History of Present Illness Chief Complaint: Weakness Narrative: This 75-year-old female came to emergency department after a fall. This was her third visit to the emergency department 3 days. The first visit was for nausea and vomiting and diarrhea. The next day was for a urinary tract infection that was asymptomatic. Last night she took an Ambien tablet and was found later by her family after falling out of bed. She did not injure herself. She was found in the emergency department to have low magnesium, leukopenia and thrombocytopenia which were all new problems. She was given intravenous magnesium and IV fluids. Because of her persistent symptoms of weakness she was admitted to the hospital for observation. She has not been around anyone else has been sick. She lives here by herself during the week as her works as a customer care professional at the [employer]. He comes home on weekends. She still feels weak this morning. She had some chills but no known fever. She has had no Covid exposure and no travel. She said she has been immunized for Covid. Stool samples have been sent to the lab for analysis. Urine culture is still pending. She still feels weak this morning. Review of Systems Constitutional Constitutional: Denies body ache(s), Reports chills, Reports fatigue, Denies fever(s), Reports malaise and Reports weakness Cardiovascular Cardiovascular: Denies chest pain, Denies edema, Denies lightheadedness, Denies palpitations and Denies dyspnea Respiratory Respiratory: Denies cough and Denies dyspnea Gastrointestinal Gastrointestinal: Reports diarrhea, Reports nausea, Denies vomiting and Denies hematemesis Genitourinary Genitourinary: Denies difficulty voiding, Reports urinary incontinence, Denies urinary hesitancy and Denies urinary urgency Neurologic Neurologic: Denies abnormal speech, Denies sensory deficit and Reports weakness Endocrine Endocrine: Reports fatigue and Denies palpitations [facility] Medical History (Updated 02/19/21 @ 07:52 by Yonatan Tomas MD) Abdominal aortic aneurysm Cholelithiasis COPD (chronic obstructive pulmonary disease) Depressed GERD (gastroesophageal reflux disease) Hiatal hernia Hyperlipidemia Surgical History Abdominal hysterectomy Cholecystectomy Endoscopy Intra-Articular, Open Family History Mother Personal history of malignant neoplasm OVARIAN Father No problems noted. Brother No problems noted. Brother No problems noted. Grandfather No problems noted. Grandfather No problems noted. Grandmother Heart disease Asthma Grandmother No problems noted. Son Aneurysm Stroke Son Depression Daughter No problems noted. FAMILY HISTORY Kidney stones Gallstones COPD (chronic obstructive pulmonary disease) Social History Smoking/Tobacco Use Status: Current every day Tobacco Type: cigarettes Smoking risk assessment performed?: Yes Alcohol Intake: never Drug use: Never Substance use type: does not use Do you feel safe at home: Yes Do you feel safe in your relationship?: Yes Meds Allergies and Home Medications Allergies Allergy/AdvReac Type Severity Reaction Status Date / Time Penicillins Allergy Severe Asthma Unverified 02/17/21 12:55 attack per Pt lidocaine AdvReac Severe Dizziness/L Unverified 02/17/21 12:55 ightheade Sulfa (Sulfonamide AdvReac Intermediate Wheezing, Unverified 02/17/21 12:55 Antibiotics) rash Home Medications Medication Instructions Recorded Confirmed Type cilostazol [Pletal] 100 mg PO BID 03/29/14 02/18/21 History simvastatin 40 mg PO QPM 03/29/14 02/18/21 History zolpidem 10 mg PO HS 03/29/14 02/18/21 History aspirin 81 mg PO HS 04/21/14 02/18/21 History sertraline 100 mg PO HS tab-cap 02/12/16 02/18/21 History albuterol sulfate [Proventil HFA] 2 puff INHALATION QID PRN PRN #1 04/13/16 02/18/21 History hfa.aer.ad cyanocobalamin (vitamin B-12) 1,000 mcg PO DAILY 03/08/19 02/18/21 History [Vitamin B-12] gabapentin 100 mg PO TID 03/08/19 02/18/21 History lisinopril 5 mg PO HS 01/16/21 02/18/21 History dicyclomine 20 mg PO BID PRN #7 tab 02/16/21 02/18/21 Rx cholecalciferol (vitamin D3) 50 mcg PO DAILY 02/17/21 02/18/21 History [Vitamin D3] nitrofurantoin monohyd/m-cryst 100 mg PO BID #10 cap 02/17/21 02/18/21 Rx [Macrobid] ondansetron HCl [Zofran] 4 mg PO Q8H PRN #10 tab 02/17/21 02/18/21 Rx Exam Const General: cooperative, no acute distress, ill appearing and not lethargic Orientation: alert, awake and oriented x3 Neck Neck: normal visual inspection and no lymphadenopathy Resp Effort & Inspection: normal respiratory effort and able to speak in complete sentences Auscultation: clear to auscultation bilaterally Cardio Heart Sounds: S1 normal, S2 normal, no click, no gallops and no murmurs GI Inspection: normal to inspection Palpation: soft, no hepatosplenomegaly and not rigid Back/Spine/Pelvis Back: no CVA tenderness Thoracic/Lumbar Spine: thoracic and lumbar spine normal to inspection and No thoracic spinal tenderness Pelvis: no pain with anterior-posterior compression Neuro General: patient alert and patient awake Extrem General: normal to inspection and no edema Right upper extremity: normal to inspection and full ROM Left upper extremity: normal to inspection and full ROM Right lower extremity: normal to inspection Left lower extremity: normal to inspection Other: No Bony tenderness over her body. Results Labs Result diagrams: 02/18/21 21:47 02/18/21 21:47 Labs: Laboratory Results - last 24 hr 02/18/21 02/18/21 02/18/21 21:47 21:47 22:20 WBC 2.24 L RBC 3.88 L Hgb 12.3 Hct 37.1 MCV 95.6 H MCH 31.7 MCHC 33.2 RDW 13.1 Plt Count 82 L MPV 11.8 H Immature Gran % See Differential Neutrophils % 63.0 Band Neutrophils % 4 Lymphocytes % 28.0 Atypical Lymphs % 1 Monocytes % 3.0 Eosinophils % 0.0 Basophils % 0.0 Metamyelocytes % 1 Nucleated RBC % 0 Absolute Neutrophils 1.50 Absolute Lymphocytes 0.65 L Absolute Monocytes 0.07 L Absolute Eosinophils 0.00 Absolute Basophils 0.00 RBC Morphology Normal Sodium 136 Potassium 3.6 Chloride 102 Carbon Dioxide 22.6 Anion Gap 11.4 H BUN 15 Creatinine 1.3 H Estimated GFR/1.73 m2 40.04 Glucose 113 H Calcium 8.4 L Magnesium 1.5 L Total Bilirubin 0.3 AST 83 H ALT 42 Alkaline Phosphatase 64 Troponin I < 0.05 Total Protein 6.3 L Albumin 3.1 L COVID-19 Source Nasal/Nares SARS-CoV-2 (PCR) Negative 02/19/21 00:40 WBC RBC Hgb Hct MCV MCH MCHC RDW Plt Count MPV Immature Gran % Neutrophils % Band Neutrophils % Lymphocytes % Atypical Lymphs % Monocytes % Eosinophils % Basophils % Metamyelocytes % Nucleated RBC % Absolute Neutrophils Absolute Lymphocytes Absolute Monocytes Absolute Eosinophils Absolute Basophils RBC Morphology Sodium Potassium Chloride Carbon Dioxide Anion Gap BUN Creatinine Estimated GFR/1.73 m2 Glucose Calcium Magnesium Total Bilirubin AST ALT Alkaline Phosphatase Troponin I < 0.05 Total Protein Albumin COVID-19 Source SARS-CoV-2 (PCR) Last Vital Signs Temp 36.9 C 02/19/21 00:04 Pulse 76 02/19/21 00:04 Resp 19 02/19/21 00:04 BP 150/83 H 02/19/21 00:04 Pulse Ox 95 02/19/21 00:04
[2021-02-19 07:13] LABS: Abs Immature Grans 0.01 10^3/uL (0.0-0.06); HCT 36.3 % (36.0-46.0); HGB 11.7 g/dL (11.2-15.7); MCHC 32.2 % (32.0-36.0); MPV 11.6 fL (8.0-11.0); Nucleated RBC 0 %; RBC 3.78 10^6/uL (3.93-5.22); RDW-SD 46.1 fL; WBC 2.06 10^3/uL (4.4-10.8)
[2021-02-19 07:19] LABS: Anion Gap 11.6 mmol/L (3-11); BUN 16 mg/dL (7-18); CO2 22.4 mmol/L (21.0-32.0); CREATININE 1.4 mg/dL (0.55-1.02); Chloride 103 mmol/L (98-107); Estimated GFR 36.76 (mL/min/1.73m2); Glucose 107 mg/dL (74-106); Magnesium 1.7 mg/dL (1.8-2.4); Potassium 3.5 mmol/L (3.5-5.1); Sodium 137 mmol/L (136-145)
[2021-02-19 07:38] LABS: Platelet Count 70 10^3/uL (130-400)
[2021-02-19 07:39] LABS: Absolute Basophil Count 0.02 10^3/uL (0.0-0.2); Absolute Lymphocyte Count 0.58 10^3/uL (1.2-3.4); Absolute Monocyte Count 0.06 10^3/uL (0.1-0.8); Absolute Neutrophil Count 1.38 10^3/uL (1.2-6.7); Atypical Lymphocytes % 7; Bands % 11; Metamyelocytes % 1
[2021-02-19 07:40] LABS: Diff Comment Manual Differential; RBC Morphology Normal
[2021-02-19] MEDS: Cilostazol 100 MG TAB PO ×2 (08:29→16:33)
[2021-02-19] MEDS: Cholecalciferol (Vitamin D3) 1,000 UNIT TAB 2000 UNITS PO (08:30)
[2021-02-19] MEDS: Cyanocobalamin 500 MCG TAB 1000 MCG PO (08:30)
[2021-02-19] MEDS: Gabapentin 100 MG CAP PO ×3 (08:30→19:29)
[2021-02-19] MEDS: cefTRIAXone 1 GM/50 ML BAG IVPB (08:40)
--- NOTE | 2021-02-19 09:31 | PDOC.CMIN ---
- If Service Date Differs Date of service: 02/19/21 Time of Service: 09:31 Care Management Initial Assess REASON FOR HOSPITALIZATION:: weakness PAST MEDICAL HISTORY/PAST SURGICAL HISTORY:: Medical History (Updated 02/19/21 @ 07:52 by Yonatan Tomas MD). Abdominal aortic aneurysm. Cholelithiasis. COPD (chronic obstructive pulmonary disease). Depressed. GERD (gastroesophageal reflux disease). Hiatal hernia. Hyperlipidemia. Surgical History . Abdominal hysterectomy. Cholecystectomy. Endoscopy PREVIOUS FUNCTIONAL STATUS/SOCIAL/FAMILY SUPPORTS:: Maegan lives in [facility] with her Binu. She has one daughter Allyson who lives in [place] and one granddaughter. Maegan had 2 sons, both of whom are . One from suicide and one from a brain aneurysm. Maegan spends her steiner at her camp in [place] on [address]. Her continues to work and joins her at [employer] on the weekend. Maegan was independent with ADLs etc but due to her current illness, she is weak and requires assistance. CURRENT FUNCTIONAL STATUS:: Maegan was lying in bed when CM met with her. She verbalized feeling better than when she came in and stated that she wanted to go home. CM explained that she has just arrived and that she is still too weak to be able to care for herself. She has just started to eat and is receiving IV fluids. Maegan's came to visit this afternoon. He informed CM that he feels she needs to remain in the hospital for a few days. CM explained that she could stay as long as it was medically necessary for her to do so, as determined by the provider. ADVANCE DIRECTIVES:: none on file Has patient been provided with info about the portal/API?: Yes Did the patient sign up for the portal?: No CODE STATUS:: Full Code INSURANCE COVERAGE / FINANCIAL ISSUES:: [place] [employer] (MCR replacement) CURRENT HOME/COMMUNITY SERVICES/EQUIPMENT:: none PRIMARY CARE PHYSICIAN:: Nivia Mendosa POTENTIAL DISCHARGE NEEDS:: follow up with PCP and plan of care PATIENT/FAMILY EDUCATION NEEDS:: Review of discharge instructions, medications, follow up plan [employer] Me [employer] TRANSPORTATION:: via private vehicle with friend PLAN:: Maegan will likely be discharged back to her camp with new home health services for nursing and PT. She will follow up with her community providers and plan of care and transport with a friend.
--- NOTE | 2021-02-19 09:49 | PT.INIE ---
Date of service: 02/19/21 Time of Service: 09:49 PT Notes Visit Reasons: Fall,Weakness,Thrombocytopenia Physical Therapy Inpatient Initial Evaluation Date: 02/19/2021 Referring Doctor: Gauri Valadez NP PT Orders: PT CONSULT: Eval/treat. Precautions: Fall. Standard. Activity as tolerated. Patient Profile/Admitting Diagnosis: Maegan is a 75-year-old female who presented to the ED on 02/19/2021 with weakness and a fall (found by on the floor). Patient was initially admitted to the ED February 16 for colitis and on February 18 for urinary tract infection and generalized weakness. Patient now with diagnosis of hypomagnesemia, thrombocytopenia, leukopenia, weakness, and acute urinary tract infection. PMHX: Medical History (Updated 02/19/21 @ 07:52 by Yonatan Tomas MD) Abdominal aortic aneurysm Cholelithiasis COPD (chronic obstructive pulmonary disease) Depressed GERD (gastroesophageal reflux disease) Hiatal hernia Hyperlipidemia Surgical History Abdominal hysterectomy Cholecystectomy Endoscopy Intra-Articular, Open Social History/Home Situation: Lives with . Does not use any assistive device. Prepares meals, does laundry, and enjoys gardening. Equipment Owned/DME: None Subjective: Patient is adamant that she has not fallen, that she was just on the floor when the found her. States that she has not taken a bath since about 7 days ago. Indicates that she still drives and that does not help with anything at home. She reports that she has not fallen in the past 12 months. Agreeable to trying out the FWW for the ambulation activity. Objective: General Observation: [place]rawn. Appeared exhausted but not in distress. Hair dishevelled, patient states that she not had the time to take a bath for the past 7 days. On 2 L of oxygen/min via NC. IV access in L UE. R eye deformity noted. Mental Status: Alert and oriented as to person, place, time, and purpose. Requires encouragement to participate in therapy due to significant fatigue. Pain: 5/10 in in low back ROM: Right Upper Extremity: Shoulder Flexion WFL. Shoulder abduction WFL. Elbow flexion WFL. Wrist flexion WFL. Functional opening and closing of hand WFL. Left Upper Extremity: Shoulder Flexion WFL. Shoulder abduction WFL. Elbow flexion WFL. Wrist flexion WFL. Functional opening and closing of hand WFL. Right Lower Extremity: Hip flexion WFL. Hip abduction WFL. Knee flexion WFL. Ankle dorsiflexion WFL. Ankle plantarflexion WFL. Left Lower Extremity: Hip flexion WFL. Hip abduction WFL. Knee flexion WFL. Ankle dorsiflexion WFL. Ankle plantarflexion WFL. Strength: Right Upper Extremity: Shoulder flexors 4-/5. Shoulder abductors 4-/5. Elbow flexors 4-/5. Elbow extensors 4-/5. Ornamental Ironworking Supervisor strong. Left Upper Extremity: Shoulder flexors 4-/5. Shoulder abductors 4-/5. Elbow flexors 4-/5. Elbow extensors 4-/5. Ornamental Ironworking Supervisor strong. Right Lower Extremity: Hip flexors 4-/5. Hip abductors 4-/5. Knee flexors 4-/5. Knee extensors 4-/5. Ankle dorsiflexors 4-/5. Ankle plantarflexors 4-/5. Left Lower Extremity: Hip flexors 4-/5. Hip abductors 4-/5. Knee flexors 4-/5. Knee extensors 4-/5. Ankle dorsiflexors 4-/5. Ankle plantarflexors 4-/5. Bed Mobility/Transfers: Rolling minimal assist Supine to sit minimal assist with HOB at 45 degrees Sit to stand contact-guard assist Stand to sit contact-guard assist. Requires extensive cueing for more controlled descent onto chair. Bed to reclining chair contact-guard assist Gait: Instructed patient with level surface ambulation of 40 feet feet +40 feet requiring contact-guard assist. Wilma decreased. Step height decreased. Step length decreased. Balance: Static Sitting: Normal Dynamic Sitting: Normal Static Standing: Fair Dynamic Standing: Fair Special Tests: Mobility Limitations Standardized Measure [facility] AM-PAC 6 clicks Basic Mobility Inpatient Short Form: Raw Score: Eighteen CMS Score: 47% deficit Informed Consent/Education: Patient was instructed in purpose of PT consult and plan of care. Agreeable to proceed with established PT POC to achieve personal goals. Assessment: Generalized weakness, dependent transfers, decreased activity tolerance all increasee risk for falls in patient at this time. Decreased motivation and signs of depression all limit ability of goal achievement at this time. Patient presents with clinical signs and symptoms consistent with current/admitting diagnoses that have resulted to mobility limitations, gait instability, generalized weakness, and overall ADL decline as demonstrated by the following impairment level findings: 1. Decreased strength to BUE/LE major muscle groups 2. Impaired sitting/standing balance 3. Impaired activity tolerance 4. Fatigue Impairments are contributing to the following functional limitations: 1. Decline in bed mobility skills 2. Decline in transfer skills 3. Difficulty with ambulation without assistive device and physical assistance 4. Increased completion time for mobility ADL performance 5. Increased risk for falls Patient is assessed as a 63576 moderate complexity based on the following: History: Twenty-four [id number] with past medical history as indicated above Examination: Demonstrable impairment in strength, balance, and mobility level with underlying impairments and functional limitations as exhibited above as well as deficit score of seven% utilizing the [facility] Mobility Inpatient Short Form Presentation: Evolving Decision Makin moderate complexity Goals: Goals X1 week 1. Supine-Sit independent 2. Sit-Supine independent 3. Sit-Stand independent 4. Stand-Sit independent with single-point cane 5. Bed-Chair independent with single-point cane 6. Chair-Bed independent with single-point cane 7. Independent gait on level surface with use of single-point cane for at least 300 feet without report of pain nor dyspnea 8. Good static and dynamic standing balance/tolerance Plan of Care/Treatment Plan: 1-2x/day, 7 days/week x 1 week. Plan of care has been reviewed with the CHEMISTRY FACULTY MEMBER providing the service under Physical Therapy direction. Initiate Physical Therapy intervention for pain management as needed, strengthening, bed mobility, transfers, gait, stairs, balance training, and use of assistive device. DISCHARGE RECOMMENDATIONS: SNF vs PT. Will need OT evalaution to address decline in self-care tasks. TREATMENT CODE/TIME: 70423 x 20 minutes, 01168 x 21 minutes beginning at 9:49 AM. Thank you for the opportunity to participate in the care of this patient. Cherise Recio PT, DPT, CLT [facility] [place], [place]
--- NOTE | 2021-02-19 14:30 | PT.INTREAT ---
Date of service: 02/19/21 Time of Service: 15:30 PT Notes Visit Reasons: Fall,Weakness,Thrombocytopenia Inpatient Physical Therapy Treatment Note [facility] Date: 02/19/2021 PRECAUTIONS: Activity as tolerated SUBJECTIVE: Maegan is pleasant although requires some encouragement to participate in PT. She states that she would like to go home. OBJECTIVE: PAIN: No c/o pain BED MOBILITY/TRANSFERS Supine-sit: S with HOB at 50 degrees Sit-stand: CGA Stand-sit: CGA GAIT Assistive Device: FWW Weight bearing: Full Assist: CGA Distance: 200' Deviation: Path deviation, c/o increased fatigue, narrow THALIA THEREX: Patient was instructed in a LE strengthening program, completed in a seated position, as per flow sheet. No c/o discomfort or difficulty. Also instructed in shoulder flexion exercise, demonstrating slight weakness in R UE. Issued pink foam cube for improved processing associate strength in R hand. ASSESSMENT: Patient tolerated session with complaint of increased fatigue with gait training. She demonstrates path deviation and narrow THALIA with gait training requiring CGA and wheelchair follow for safety, although she was able to tolerate a progression in gait distance. PLAN: Continue with global strengthening and gait training with least restrictive device for continued progression toward baseline level of function. TREATMENT CODE/TIME: 40 minutes; 33823 x2, 03763 (14:30)
[2021-02-19] MEDS: Normal Saline 1,000 ML 150 ML IV ×2 (15:00→21:29)
--- NOTE | 2021-02-19 15:31 | PHA.REVIEW ---
Pharmacy Admission Review - Admission Clinical Review (Last Reviewed 02/18/21 @ 21:54 by Christin Montesinos) Leukopenia (Acute) Hypomagnesemia (Acute) Weakness (Acute) Acute UTI (Acute) Penicillins Allergy (Severe, Unverified 02/17/21 12:55) Asthma attack per Pt lidocaine Adverse Reaction (Severe, Unverified 02/17/21 12:55) Dizziness/Lightheade Sulfa (Sulfonamide Antibiotics) Adverse Reaction (Intermediate, Unverified 02/17/21 12:55) Wheezing, rash Resuscitation Status Full Code Height 5 ft Weight 58.9 kg - Renal Dosing Renal Dosing: BUN 16 mg/dL (7-18) 02/19/21 07:00 Creatinine 1.4 mg/dL (0.55-1.02) H 02/19/21 07:00 Medications needing adjustments: Intervened (Crcl ~25.32 mL/min. Total daily gabapentin dose is within the max dose per day for pt's renal function but its recommended to be given once or twice daily vs TID. It's recommended to avoid use of zolpidem with severe renal impairment. Will talk to provider.) - Anticoagulation Anticoagulation: Hgb 11.7 g/dL (11.2-15.7) 02/19/21 07:00 Hct 36.3 % (36.0-46.0) 02/19/21 07:00 Plt Count 70 10^3/uL (130-400) L 02/19/21 07:00 Creatinine 1.4 mg/dL (0.55-1.02) H 02/19/21 07:00 DVT Prophylaxis: Reviewed (being held due to thrombocytopenia) - Opiate Usage Scheduled Bowel Reg ordered if on Opiates?: No - Relevant Labs Sodium 137 mmol/L (136-145) 02/19/21 07:00 Potassium 3.5 mmol/L (3.5-5.1) 02/19/21 07:00 Chloride 103 mmol/L (98-107) 02/19/21 07:00 Magnesium 1.7 mg/dL (1.8-2.4) L 02/19/21 07:00 Electrolytes, C-Reactive P, ESR: Reviewed (mag replacement ordered) - DM Control DM Control: Glucose 107 mg/dL (74-106) H 02/19/21 07:00 Insulin Dosing: N/A - Heart Failure/HI Heart Failure/HI: Troponin I < 0.05 ng/mL (<0.06) 02/19/21 00:40 EF%, LYN's, B-Blockers, Diuretics: Reviewed - BP Control BP Control: Blood Pressure 130/74 If elevated: Reviewed (BP has been normal to high so far this admission, home lisinopril not currently ordered) - Qtc Review If Elevated: N/A (No EKG report yet) - IV to PO Switch IV Medications: Reviewed - Home Meds Home Med List reviewed: Intervened (Per external med history patient is on atorvastatin, not simvastatin. Provider wanted the atorvastatin ordered. Multiple TYPESETTING MACHINE OPERATOR/TENDER depressants and meds with anti-platelet properties) Relevent Home Meds Not ordered & why?: dicyclomine (PRN), lisinopril, macrobid (not recommended with her renal function/has other abx ordered). - Current meds Current Medication Order Review: Reviewed - Comments Comments/Follow Ups: Watch BP, SCr, plt, mag, labs and for med changes (renal dose adjustments). Antibiotic Activity - Pharmacy Antibiotic Review Pharmacy Antibiotic Activity: Reviewed, no change (Ceftriaxone ordered (day 1) for UTI (see cultures from previous account).)
[2021-02-19] MEDS: Atorvastatin 40 MG TAB PO (19:29)
[2021-02-19] MEDS: Melatonin 3 MG TAB 9 MG PO (21:30)
[2021-02-19] MEDS: Aspirin E.C. 81 MG TABEC PO (21:30)
[2021-02-19] MEDS: Sertraline 50 MG TAB 100 MG PO (21:30)
[2021-02-19] MEDS: Zolpidem 5 MG TAB PO (21:30)
[2021-02-20] VITALS (8 sets, daily range): BP systolic 95–150; BP diastolic 61–90; PULSE 39–80; RESP 12–20; TEMP 34.8–37.8; O2SAT 93–98
--- NOTE | 2021-02-20 | DI.CT_ITS ---
Exam(s) CT CHEST PE CTA EXAM: CT CHEST PE CTA CLINICAL HISTORY: fever, elevated ddimer, pancytopenia. TECHNIQUE: Imaging Protocol: Axial CT angiography was performed with multi-slice acquisition and mu lti-planar and/or 3D reconstructions. CONTRAST MATERIAL: Intravenous: Omnipaque 350 Contrast volume:100 mL COMPARISON: CT CT ABDOMEN PELVIS W from 02/16/2021 FINDINGS: Tracheobronchial tree: Patent where visualized. Pulmonary parenchyma: There are small bilateral pleural effusions, right greater than left. There ar e subjacent infiltrates present. These may represent atelectasis or pneumonia. Bilateral apical sca rring is present. Moderate centrilobular and paraseptal pulmonary emphysema. Pulmonary Arteries: No evidence of filling defect to suggest pulmonary emboli. Mediastinum and Tanya: There is an enlarged 1.8 cm right paratracheal lymph node. No mediastinal flui d collection is seen. Visualized thyroid gland: Unremarkable. Pleura: Please see the above discussion. Heart: Mild cardiomegaly. Mild coronary artery calcification. No pericardial effusion. Aorta: Thoracic aorta non-dilated. Atherosclerosis. No evidence of dissection. Upper abdomen: No acute change compared to the CT scan from 02/16/2021. Soft tissues: Unremarkable. Bones: Within normal limits for the patient's age. IMPRESSION: 1. No evidence of pulmonary embolism, thoracic aortic dissection or aneurysm. 2. New small bilateral pleural effusions, right greater than left with bilateral basilar infiltrates which may represent atelectasis or pneumonia. RADIATION DOSE DELIVERED: 241.33mGy.cm Total DLP DATA REPOSITORY: All CT scans at this facility are submitted to the National Radiology Data Registry (NRDR) Dose Index Registry (DIR) with the [employer] (ACR). RADIATION OPTIMIZATION: All CT scans at this facility use at least one of these dose optimization te chniques: automated exposure control; mA and/or kV adjustment per patient size (includes targeted exa ms where dose is matched to clinical indication); or iterative reconstruction.
--- NOTE | 2021-02-20 | DI.US_ITS ---
Exam(s) US EXTREMITY VENOUS BI EXAM: US EXTREMITY VENOUS BI CLINICAL HISTORY: r/o DVT. TECHNIQUE: Bilateral lower extremity venous ultrasound performed using grayscale, color-flow, and sp ectral Doppler analysis. COMPARISON: No exams were available for comparison FINDINGS: The bilateral common femoral, femoral and popliteal veins demonstrate normal compressibility, augment ation, and color Doppler. The posterior tibial veins are patent. The saphenofemoral junctions are unr emarkable. There is no evidence of a Greene's cyst. The soft tissues are unremarkable. IMPRESSION: Right: Negative for DVT Left: Negative for DVT DATA REPOSITORY:
[2021-02-20] MEDS: Normal Saline 1,000 ML 150 ML IV (03:56)
[2021-02-20 06:58] LABS: HCT 29.7 % (36.0-46.0); HGB 9.8 g/dL (11.2-15.7); MCH 31.7 pg (27.0-33.0); MCV 96.1 fL (80-95); MPV 12.9 fL (8.0-11.0); Nucleated RBC 0 %; Platelet Count 60 10^3/uL (130-400); RBC 3.09 10^6/uL (3.93-5.22); RDW 13.3 % (11.7-14.6); RDW-SD 47.5 fL; WBC 2.33 10^3/uL (4.4-10.8)
[2021-02-20 07:18] LABS: ALT 28 U/L (14-59); AST 56 U/L (15-37); Albumin 2.3 g/dL (3.4-5.0); Alkaline Phosphatase 52 U/L (46-116); Anion Gap 9.8 mmol/L (3-11); BUN 15 mg/dL (7-18); Bilirubin, Total 0.3 mg/dL (0.2-1.0); CO2 21.2 mmol/L (21.0-32.0); CREATININE 1.2 mg/dL (0.55-1.02); Calcium 7.4 mg/dL (8.5-10.1); Chloride 108 mmol/L (98-107); Estimated GFR 43.91 (mL/min/1.73m2); Glucose 96 mg/dL (74-106); Potassium 3.4 mmol/L (3.5-5.1); Sodium 139 mmol/L (136-145); Total Protein 4.8 g/dL (6.4-8.2)
[2021-02-20] MEDS: Cholecalciferol (Vitamin D3) 1,000 UNIT TAB 2000 UNITS PO (07:33)
[2021-02-20] MEDS: Cilostazol 100 MG TAB PO (07:33)
[2021-02-20] MEDS: Cyanocobalamin 500 MCG TAB 1000 MCG PO (07:33)
[2021-02-20] MEDS: Gabapentin 100 MG CAP PO ×3 (07:33→19:57)
[2021-02-20] MEDS: cefTRIAXone 1 GM/50 ML BAG IVPB (07:34)
[2021-02-20 07:52] LABS: Absolute Neutrophil Count 1.37 10^3/uL (1.2-6.7); Bands % 26
[2021-02-20 07:53] LABS: Absolute Eosinophil Count 0.02 10^3/uL (0.0-0.7); Absolute Lymphocyte Count 0.89 10^3/uL (1.2-3.4); Absolute Monocyte Count 0.02 10^3/uL (0.1-0.8); Atypical Lymphocytes % 2; Metamyelocytes % 1
[2021-02-20 07:54] LABS: Diff Comment Manual Differential; Poikilocytes 1+
[2021-02-20 08:20] LABS: Magnesium 1.5 mg/dL (1.8-2.4)
[2021-02-20] MEDS: Potassium Chloride 10 MEQ CAPCR 40 MEQ PO (09:10)
[2021-02-20] MEDS: MAGNESIUM SULFATE 4 GM/100 ML BAG IVPB (09:11)
[2021-02-20 09:45] LABS: HCT 33.8 % (36.0-46.0); Reticulocyte 0.6 % (0.5-2.4)
[2021-02-20 10:20] LABS: D-Dimer > 7500 ng/mlFEU (<500)
[2021-02-20 10:39] LABS: Iron 15 ug/dL (50-170); Total Iron Binding Capacity 166 ug/dL (250-450); Transferrin Sat 9 % (15-50)
[2021-02-20] MEDS: Fosfomycin Tromethamine 3 GM PACKET PO (10:46)
[2021-02-20 10:50] LABS: LDH 330 U/L (81-234)
--- NOTE | 2021-02-20 10:53 | PT.INTREAT ---
Date of service: 02/20/21 Time of Service: 09:20 PT Notes Visit Reasons: Fall,Weakness,Thrombocytopenia Inpatient Physical Therapy Treatment Note [facility] Date: 02/20/2021 PRECAUTIONS: Fall and Activities as tolerated SUBJECTIVE: Stated she is feeling better today. OBJECTIVE: PAIN: No complaints of pain offered. BED MOBILITY/TRANSFERS Rolling L/R: I Supine-sit: I with HOB at 30 degrees Sit-supine: I with HOB at 30 degrees Sit-stand: CGA Stand-sit: CGA GAIT Assistive Device: FWW Weight bearing: Full Assist: CGA Distance: 200ft Deviation: Tends to drift to right occasionally THEREX: Performed ankle pumps, LAQs, supine marching with bilateral LEs and supine hip abd / adduction. Did require contact instruction with hip abd/ adduction on the right. Patient indicated she felt she was moving her leg when she was not. Able to move once contact instruction was given. ASSESSMENT: Good effort despite indicating she was feeling lazy today. PLAN: Continue to focus on improving ambulation and strengthening of extremities for better ADL function. TREATMENT CODE/TIME: 48197q7, 28703u4, (35') began at 9:20
[2021-02-20 11:16] LABS: Ferritin > 2000 ng/mL (8-252)
[2021-02-20 11:45] LABS: Fibrinogen (Stat) (Littleton) 160 mg/dL (208-434)
--- NOTE | 2021-02-20 14:12 | PGE_ITS ---
Date of Service Date of service: 02/20/21 Time of Service: 14:12 Assessment and Plan Assessment and plan (1) Fever: Start date: 02/20/21 Start time: 14:56 Status: Acute Assessment and plan: PT febrile today initially thought to be reaction of hemolytic anemia however Marianna test negative, n/v she did have elevated LDH with Ferritin and ddimer greater than 7500 blood cultures ordered PE/DVT r/o IRON low as below Qualifiers: Fever type: unspecified Qualified Code(s): R50.9 - Fever, unspecified (2) Weakness: Start date: 02/20/21 Start time: 14:48 Status: Acute Assessment and plan: Etiology is unclear but could be related to her viral gastroenteritis. CT of abd from 02/16 reveals infectious colitis , no diarrhea at this time poor appetite Will continue IV fluids, watch labs and monitor status. she also states she only eats approx once daily she is being started on IV cipro and flagyl, will place on probiotic r/o hemastool (3) Acute UTI: Start date: 02/20/21 Start time: 14:58 Status: Acute Assessment and plan: She was on ceftrixone though thought be having hemolytic anemia drug stopped and given dose fosfomyacin (4) Hypomagnesemia: Start date: 02/20/21 Start time: 14:58 Status: Acute Assessment and plan: Repeat Mg low replete and monitor. (5) Thrombocytopenia: Start date: 02/20/21 Start time: 14:59 Status: Chronic Assessment and plan: Worse today, now has pancytopneia, r/o hemolytic an emia. Marianna test negative (6) DVT prophylaxis: Start date: 02/20/21 Start time: 15:02 Status: Acute Assessment and plan: Pletal and ASA on hold at this time, hold all anticoagulation at this time. SCD and TEDs as patients being worked up for bleeding (7) Discharge planning issues: Start date: 02/20/21 Start time: 15:03 Status: Acute Assessment and plan: Changed to inpatient status, home when medically ready discussed with Dr. De La Paz Subjective Subjective Interval history since last seen: Ms. oneill states she is not feeling well today. Feeling more fatigue. Her blood levels have been trending down. She was initially leukopenia but today pancytopenia. R/o hemolytic anemia. Ddimer was greater than 7500, alvarenga test negative, Iron stores are low, LDH high, obtain CTA with Bilateral u/s to r/o DVT and PE. She is febrile, add tylenol for fever, iron, check heme stools. Will give a dose IV iron as well. She is currently on pletal and asa, no PPI. Continue to monitor. Exam Const General: cooperative, no acute distress, ill appearing and not lethargic Orientation: alert, awake and oriented x3 Neck Neck: normal visual inspection and no lymphadenopathy Resp Effort & Inspection: normal respiratory effort and able to speak in complete sentences Auscultation: clear to auscultation bilaterally Cardio Heart Sounds: S1 normal, S2 normal, no click, no gallops and no murmurs GI Inspection: normal to inspection Palpation: soft, no hepatosplenomegaly and not rigid Back/Spine/Pelvis Back: no CVA tenderness Thoracic/Lumbar Spine: thoracic and lumbar spine normal to inspection and No thoracic spinal tenderness Pelvis: no pain with anterior-posterior compression Neuro General: patient alert and patient awake Extrem General: normal to inspection and no edema Right upper extremity: normal to inspection and full ROM Left upper extremity: normal to inspection and full ROM Right lower extremity: normal to inspection Left lower extremity: normal to inspection Objective Last Vital Signs Temp 37.8 C H 02/20/21 07:43 Pulse 60 02/20/21 07:43 Resp 20 02/20/21 07:43 BP 150/90 H 02/20/21 07:43 Pulse Ox 98 02/20/21 07:43 Laboratory Results - last 24 hr 02/20/21 02/20/21 02/20/21 06:21 06:21 06:21 WBC 2.33 L RBC 3.09 L Hgb 9.8 L Hct 29.7 L MCV 96.1 H MCH 31.7 MCHC 33.0 RDW 13.3 Plt Count 60 L MPV 12.9 H Reticulocyte % (Auto) Immature Gran % See Differential Neutrophils % 33.0 Band Neutrophils % 26 Lymphocytes % 36.0 Atypical Lymphs % 2 Monocytes % 1.0 Eosinophils % 1.0 Basophils % 0.0 Metamyelocytes % 1 Nucleated RBC % 0 Absolute Neutrophils 1.37 Absolute Lymphocytes 0.89 L Absolute Monocytes 0.02 L Absolute Eosinophils 0.02 Absolute Basophils 0.00 RBC Morphology See Below Poikilocytosis 1+ Fibrinogen D-Dimer Sodium 139 Potassium 3.4 L Chloride 108 H Carbon Dioxide 21.2 Anion Gap 9.8 BUN 15 Creatinine 1.2 H Estimated GFR/1.73 m2 43.91 Glucose 96 Calcium 7.4 L Magnesium 1.5 L Iron TIBC Transferrin % Sat Ferritin Total Bilirubin 0.3 AST 56 H ALT 28 Alkaline Phosphatase 52 Lactate Dehydrogenase Total Protein 4.8 L Albumin 2.3 L Patient ABO/Rh Antibody Screen Direct Antiglob Test 02/20/21 02/20/21 02/20/21 09:25 09:25 09:25 WBC RBC Hgb Hct MCV MCH MCHC RDW Plt Count MPV Reticulocyte % (Auto) Immature Gran % Neutrophils % Band Neutrophils % Lymphocytes % Atypical Lymphs % Monocytes % Eosinophils % Basophils % Metamyelocytes % Nucleated RBC % Absolute Neutrophils Absolute Lymphocytes Absolute Monocytes Absolute Eosinophils Absolute Basophils RBC Morphology Poikilocytosis Fibrinogen 160 L D-Dimer > 7500 H Sodium Potassium Chloride Carbon Dioxide Anion Gap BUN Creatinine Estimated GFR/1.73 m2 Glucose Calcium Magnesium Iron TIBC Transferrin % Sat Ferritin Total Bilirubin AST ALT Alkaline Phosphatase Lactate Dehydrogenase 330 H Total Protein Albumin Patient ABO/Rh Antibody Screen Direct Antiglob Test 02/20/21 02/20/21 02/20/21 09:25 09:25 09:25 WBC RBC Hgb 11.0 L Hct 33.8 L MCV MCH MCHC RDW Plt Count MPV Reticulocyte % (Auto) 0.6 Immature Gran % Neutrophils % Band Neutrophils % Lymphocytes % Atypical Lymphs % Monocytes % Eosinophils % Basophils % Metamyelocytes % Nucleated RBC % Absolute Neutrophils Absolute Lymphocytes Absolute Monocytes Absolute Eosinophils Absolute Basophils RBC Morphology Poikilocytosis Fibrinogen D-Dimer Sodium Potassium Chloride Carbon Dioxide Anion Gap BUN Creatinine Estimated GFR/1.73 m2 Glucose Calcium Magnesium Iron TIBC Transferrin % Sat Ferritin Total Bilirubin AST ALT Alkaline Phosphatase Lactate Dehydrogenase Total Protein Albumin Patient ABO/Rh A Positive Antibody Screen NEGATIVE Direct Antiglob Test Negative 02/20/21 02/20/21 09:25 09:25 WBC RBC Hgb Hct MCV MCH MCHC RDW Plt Count MPV Reticulocyte % (Auto) Immature Gran % Neutrophils % Band Neutrophils % Lymphocytes % Atypical Lymphs % Monocytes % Eosinophils % Basophils % Metamyelocytes % Nucleated RBC % Absolute Neutrophils Absolute Lymphocytes Absolute Monocytes Absolute Eosinophils Absolute Basophils RBC Morphology Poikilocytosis Fibrinogen D-Dimer Sodium Potassium Chloride Carbon Dioxide Anion Gap BUN Creatinine Estimated GFR/1.73 m2 Glucose Calcium Magnesium Iron 15 L TIBC 166 L Transferrin % Sat 9 L Ferritin > 2000 H Total Bilirubin AST ALT Alkaline Phosphatase Lactate Dehydrogenase Total Protein Albumin Patient ABO/Rh Antibody Screen Direct Antiglob Test
[2021-02-20] MEDS: Normal Saline - Diluent 50 ML VIAL IV (14:20)
[2021-02-20] MEDS: Normal Saline Flush 10 ML SYR IVP (14:21)
[2021-02-20] MEDS: Omnipaque 350 MG/ML 100 ML BTL IJ (14:21)
--- NOTE | 2021-02-20 14:35 | DI.VRAD_ITS ---
PROCEDURE INFORMATION: Exam: CTA Chest With Contrast Exam date and time: 02/20/2021 1:55 PM Age: 75 years old Clinical indication: Other: Fever, elevated ddimer, pancytopenia TECHNIQUE: Imaging protocol: Computed tomographic angiography of the chest with contrast. 3D rendering (Not supervised by radiologist): MIP and/or 3D reconstructed images were created by the technologist. Contrast material: OMNIPAQUE 350; Contrast volume: 100 ml; Contrast route: INTRAVENOUS (IV); COMPARISON: CT CHEST FOR PULMONARY EMBOLUS 02/09/2016 3:14 PM FINDINGS: Pulmonary arteries: Normal. No pulmonary emboli. Aorta: Moderate atherosclerotic change present in the vasculature. Lungs: There is bibasilar atelectasis, right worse than left, new. COPD again seen. There appears to be mild bronchial wall thickening involving both lower lobes. Pleural spaces: There are small bilateral pleural effusions, new. There is moderate bilateral pleural apical scarring again seen. Heart: Mild cardiomegaly unchanged. Coronary artery calcifications/stents identified. Lymph nodes: Unremarkable. No enlarged lymph nodes. Bones/joints: Unremarkable. No acute fracture. Soft tissues: Unremarkable. Other findings: Respiratory motion noted. IMPRESSION: 1. No evidence for pulmonary embolus. 2. Small bilateral pleural effusions with bibasilar atelectasis. Probable mild bronchitis. Dictated and Authenticated by: Salud Colvin MD. Ordering:WILBUR Tripathi MD
[2021-02-20] MEDS: Folic Acid 1 MG TAB PO (15:05)
[2021-02-20] MEDS: predniSONE 20 MG TAB 60 MG PO (15:05)
[2021-02-20] MEDS: Acetaminophen 325 MG TAB 650 MG PO ×2 (15:05→21:31)
[2021-02-20] MEDS: IRON SUCROSE COMPLEX 100 MG in Normal Saline 100 ML 400 MG IVPB (15:06)
--- NOTE | 2021-02-20 15:19 | DI.VRAD_ITS ---
PROCEDURE INFORMATION: Exam: US Duplex Lower Extremity Veins, Bilateral Exam date and time: 02/20/2021 2:18 PM Age: 75 years old Clinical indication: Other: Elevated d-dimer TECHNIQUE: Imaging protocol: Real-time duplex ultrasound of the extremities with 2-D terrell scale, color Doppler flow and spectral waveform analysis with image documentation. Complete exam focused on the bilateral lower extremity veins. COMPARISON: CT ABDOMEN PELVIS W 02/16/2021 12:13 PM FINDINGS: Right deep veins: Unremarkable. The common femoral, femoral, proximal profunda femoral and popliteal veins are patent without thrombus. Normal Doppler waveforms. Normal compressibility and/or augmentation response. Right superficial veins: Saphenofemoral junction is patent without thrombus. Left deep veins: Unremarkable. The common femoral, femoral, proximal profunda femoral and popliteal veins are patent without thrombus. Normal Doppler waveforms. Normal compressibility and/or augmentation response. Left superficial veins: Saphenofemoral junction is patent without thrombus. Soft tissues: Unremarkable. IMPRESSION: No evidence for DVT. Dictated and Authenticated by: Salud Colvin MD. Ordering:WILBUR Tripathi MD
[2021-02-20 16:09] LABS: Magnesium 1.5 mg/dL (1.8-2.4)
[2021-02-20 16:14] LABS: Potassium 4.4 mmol/L (3.5-5.1)
[2021-02-20] MEDS: CIPROFLOXACIN 400 MG/200 ML BAG 200 MG IVPB (16:14)
[2021-02-20] MEDS: metroNIDAZOLE 500 MG/100 ML BAG 100 MG IVPB ×2 (16:14→21:31)
[2021-02-20] MEDS: Atorvastatin 40 MG TAB PO (19:57)
[2021-02-20] MEDS: Pantoprazole 40 MG TABCR PO (19:57)
[2021-02-20] MEDS: Potassium Chloride 10 MEQ CAPCR 20 MEQ PO (19:57)
[2021-02-20] MEDS: Normal Saline 1,000 ML 50 ML IV (21:10)
[2021-02-20] MEDS: Sertraline 50 MG TAB 100 MG PO (21:32)
[2021-02-20] MEDS: Melatonin 3 MG TAB 9 MG PO (21:32)
[2021-02-20] MEDS: Zolpidem 5 MG TAB PO (21:32)
[2021-02-20 21:53] LABS: C Diff PCR Negative (Negative)
[2021-02-21] VITALS (9 sets, daily range): BP systolic 94–136; BP diastolic 62–81; PULSE 45–95; RESP 16–20; TEMP 35.6–36.5; O2SAT 92–99
[2021-02-21] MEDS: CIPROFLOXACIN 400 MG/200 ML BAG 200 MG IVPB (02:11)
[2021-02-21] MEDS: metroNIDAZOLE 500 MG/100 ML BAG 100 MG IVPB ×4 (04:08→21:43)
[2021-02-21 07:13] LABS: HCT 30.8 % (36.0-46.0); HGB 10.2 g/dL (11.2-15.7); MCH 31.2 pg (27.0-33.0); MCHC 33.1 % (32.0-36.0); MCV 94.2 fL (80-95); MPV 13.5 fL (8.0-11.0); Nucleated RBC 0 %; RBC 3.27 10^6/uL (3.93-5.22); RDW 13.3 % (11.7-14.6); RDW-SD 46.5 fL; WBC 2.95 10^3/uL (4.4-10.8)
[2021-02-21 07:20] LABS: BUN 15 mg/dL (7-18); CREATININE 1.1 mg/dL (0.55-1.02); Calcium 7.7 mg/dL (8.5-10.1); Chloride 110 mmol/L (98-107); Estimated GFR 48.55 (mL/min/1.73m2); Glucose 133 mg/dL (74-106); Magnesium 2.4 mg/dL (1.8-2.4); Potassium 4.5 mmol/L (3.5-5.1); Sodium 141 mmol/L (136-145)
[2021-02-21 07:36] LABS: Absolute Neutrophil Count 2.36 10^3/uL (1.2-6.7); Bands % 13
[2021-02-21 07:37] LABS: Absolute Lymphocyte Count 0.53 10^3/uL (1.2-3.4); Absolute Monocyte Count 0.03 10^3/uL (0.1-0.8); Burr Cells (echinocyte) 3+; Diff Comment Manual Differential; Metamyelocytes % 1
[2021-02-21 07:38] LABS: Platelet Count 73 10^3/uL (130-400)
[2021-02-21] MEDS: Cyanocobalamin 500 MCG TAB 1000 MCG PO (07:48)
[2021-02-21] MEDS: Pantoprazole 40 MG TABCR PO ×2 (07:48→20:10)
[2021-02-21] MEDS: Cholecalciferol (Vitamin D3) 1,000 UNIT TAB 2000 UNITS PO (07:49)
[2021-02-21] MEDS: Gabapentin 100 MG CAP PO ×3 (07:49→20:10)
[2021-02-21] MEDS: Potassium Chloride 10 MEQ CAPCR 20 MEQ PO ×2 (07:49→20:09)
--- NOTE | 2021-02-21 09:39 | PT.INTREAT ---
Date of service: 02/21/21 Time of Service: 09:05 PT Notes Visit Reasons: Fall,Weakness,Thrombocytopenia Inpatient Physical Therapy Treatment Note [facility] Date: 02/21/2021 PRECAUTIONS: Fall and Activities as tolerated SUBJECTIVE: Stated she is feeling good upon my arrival. Indicated she is okay with taking a walk and with doing some exercises. OBJECTIVE: PAIN: Indicated no pain complaints when asked. BED MOBILITY/TRANSFERS Rolling L/R: I Supine-sit: I Sit-supine: I Sit-stand: SBA, does not use good safety technique. Will not reach back for arms of chair or bed, even when verbally cued are repeatedly made. Stand-sit: SBA, does not use good safety technique. Will not reach back for arms of chair or bed, even when verbally cued are repeatedly made. Use of O2 supplement at 2L throughout session, but no noted SOB. GAIT Assistive Device: FWW, IV pole disconnected for ambulation by nursing staff. Did have w/c behind patient incase she felt the need to sit, but did not use. Weight bearing: Full Assist: CGA Distance: 260ft, with O2 reading of 94% post ambulation. Deviation: Slow steady gait. Did notice occasional dragging of right foot after approximately 200ft. THEREX: Performed ankle pumps, LAQs, seated hip abd/add, seated hip flexion for 10 reps x 2 sets and right UE shoulder flexion, horizontal abd / adduction and technology solutions architect strengthening with pink cube for 10 reps each. ASSESSMENT: Tolerated today's session well with good effort given with ther exercises and ambulation. No displayed SOB with ther ex or ambulation. Need to continue focusing on strengthening especially with right LE / UE. PLAN: Continue with current plan of care with focus on improve ADL function. Continue to closely monitor use of right LE with ambulation. Possibly work on stair ambulation and balance/ proprioceptive activities next session, if patient is agreeable to this. TREATMENT CODE/TIME: [id number], [id number], 25 minutes beginning at 9:05
--- NOTE | 2021-02-21 14:38 | W.PM.PROGNOT ---
Date of Service Date of service: 02/21/21 Time of Service: 14:38 Assessment and Plan Assessment and plan (1) Fever: Start date: 02/21/21 Start time: 14:41 Status: Resolved Assessment and plan: Defervesced. Feeling great Qualifiers: Fever type: unspecified Qualified Code(s): R50.9 - Fever, unspecified (2) Weakness: Start date: 02/21/21 Start time: 14:42 Status: Acute Assessment and plan: Patient feeling less tired. More energetic today She is sitting up in chair. States best she has felt (3) Acute UTI: Start date: 02/21/21 Start time: 14:42 Status: Resolved Assessment and plan: She was on ceftrixone though thought be having hemolytic anemia drug stopped and given dose fosfomyacin (4) Hypomagnesemia: Start date: 02/21/21 Start time: 14:42 Status: Resolved Assessment and plan: mag level 2.4 today. (5) Thrombocytopenia: Start date: 02/21/21 Start time: 14:43 Status: Chronic Assessment and plan: improving. likely from the rocephin will continue to monitor (6) DVT prophylaxis: Start date: 02/21/21 Start time: 14:47 Status: Acute Assessment and plan: Pletal and ASA on hold at this time, hold all anticoagulation at this time. SCD and TEDs as patients being worked up for bleeding (7) Discharge planning issues: Start date: 02/21/21 Start time: 14:47 Status: Acute Assessment and plan: home when medically ready discussed with Dr. De La Paz Subjective Subjective Patient reports: feels better Interval history since last seen: Patient looks and feels better, sitting up in chair. Antibiotics changed to aztreonam from cipro due to prolonged qt. otherwise doing well will continue to monitor. She denies CP, SOB, N/V/D Exam Const General: cooperative, comfortable, no acute distress and not lethargic Orientation: alert, awake and oriented x3 HENMT Head: normal to inspection, normocephalic and atraumatic Eyes Pupils: PERRL EOM: EOM intact bilaterally Neck Neck: normal visual inspection and no lymphadenopathy Resp Effort & Inspection: normal respiratory effort and able to speak in complete sentences Auscultation: clear to auscultation bilaterally Cardio Jugular venous pressure: no JVD Heart Sounds: S1 normal, S2 normal, no click, no gallops and no murmurs GI Inspection: normal to inspection Palpation: soft, no hepatosplenomegaly and not rigid General: No CVA tenderness and deferred Back/Spine/Pelvis Back: no CVA tenderness Thoracic/Lumbar Spine: thoracic and lumbar spine normal to inspection and No thoracic spinal tenderness Pelvis: no pain with anterior-posterior compression Neuro General: patient alert and patient awake Extrem General: normal to inspection and no edema Right upper extremity: normal to inspection and full ROM Left upper extremity: normal to inspection and full ROM Right lower extremity: normal to inspection Left lower extremity: normal to inspection Objective Last Vital Signs Temp 35.8 C L 02/21/21 07:45 Pulse 48 L 02/21/21 11:44 Resp 16 02/21/21 07:45 BP 125/66 02/21/21 07:45 Pulse Ox 96 02/21/21 09:35 Laboratory Results - last 24 hr 02/20/21 02/20/21 02/21/21 15:41 19:55 06:30 WBC RBC Hgb Hct MCV MCH MCHC RDW Plt Count MPV Immature Gran % Neutrophils % Band Neutrophils % Lymphocytes % Monocytes % Eosinophils % Basophils % Metamyelocytes % Nucleated RBC % Absolute Neutrophils Absolute Lymphocytes Absolute Monocytes Absolute Eosinophils Absolute Basophils RBC Morphology Oniel Cells/Echinocytes Sodium 141 Potassium 4.4 D 4.5 Chloride 110 H Carbon Dioxide 22.0 Anion Gap 9.0 BUN 15 Creatinine 1.1 H Estimated GFR/1.73 m2 48.55 Glucose 133 H Calcium 7.7 L Magnesium 1.5 L 2.4 Stl C.difficile Tox PCR Negative 02/21/21 06:30 WBC 2.95 L RBC 3.27 L Hgb 10.2 L Hct 30.8 L MCV 94.2 MCH 31.2 MCHC 33.1 RDW 13.3 Plt Count 73 L MPV 13.5 H Immature Gran % 0.0 Neutrophils % 67.0 Band Neutrophils % 13 Lymphocytes % 18.0 Monocytes % 1.0 Eosinophils % 0.0 Basophils % 0.0 Metamyelocytes % 1 Nucleated RBC % 0 Absolute Neutrophils 2.36 Absolute Lymphocytes 0.53 L Absolute Monocytes 0.03 L Absolute Eosinophils 0.00 Absolute Basophils 0.00 RBC Morphology See Below Streator Cells/Echinocytes 3+ Sodium Potassium Chloride Carbon Dioxide Anion Gap BUN Creatinine Estimated GFR/1.73 m2 Glucose Calcium Magnesium Stl C.difficile Tox PCR
[2021-02-21] MEDS: Atorvastatin 40 MG TAB PO (20:08)
[2021-02-21] MEDS: Sertraline 50 MG TAB 100 MG PO (21:42)
[2021-02-21] MEDS: Zolpidem 5 MG TAB PO (21:42)
[2021-02-21] MEDS: Melatonin 3 MG TAB 9 MG PO (21:43)
[2021-02-21] MEDS: Normal Saline 1,000 ML 50 ML IV (21:44)
[2021-02-22] VITALS: BP 147/74; PULSE 86; RESP 20; TEMP 36.2; O2SAT 95
[2021-02-22] MEDS: Acetaminophen 325 MG TAB 650 MG PO (01:50)
[2021-02-22] MEDS: metroNIDAZOLE 500 MG/100 ML BAG 100 MG IVPB ×2 (03:35→10:22)
[2021-02-22 06:57] VITALS: BP 154/76; PULSE 49; RESP 14; TEMP 35.4; O2SAT 91
[2021-02-22 07:07] LABS: Anion Gap 7.5 mmol/L (3-11); BUN 14 mg/dL (7-18); CO2 23.5 mmol/L (21.0-32.0); CREATININE 1.2 mg/dL (0.55-1.02); Calcium 8.2 mg/dL (8.5-10.1); Chloride 112 mmol/L (98-107); Estimated GFR 43.91 (mL/min/1.73m2); Glucose 100 mg/dL (74-106); Sodium 143 mmol/L (136-145)
--- NOTE | 2021-02-22 07:58 | OT.INIE ---
Occupational Therapy Notes Inpatient Occupational Therapy Evaluation Date: 02/22/21 Referring Doctor:Gauri Valadez NP OT Orders: Non-URgent Precautions: Fall, standard, Full PATIENT PROFILE/ADMITTING DIAGNOSIS: Pt is a 75 year old female who presented to the ED 3x over the dates of 02/15-02/18 and was admitted to [facility] surg with the following dx including DVT prophylaxis, fever, leukopenia, thrombocytopenia, hypomagnesemia, dysphasia, balance deficits, TIA, colitis, nausea with vomitting and diarrhea, weakness and acute UTI. Past Medical History: Medical History (Updated 02/19/21 @ 07:52 by Yonatan Tomas MD) Abdominal aortic aneurysm Cholelithiasis COPD (chronic obstructive pulmonary disease) Depressed GERD (gastroesophageal reflux disease) Hiatal hernia Hyperlipidemia Surgical History Abdominal hysterectomy Cholecystectomy Endoscopy Intra-Articular, Open Social History/Home Situation: Pt states that in the steiner she lives at her camp at [place]. She notes that her spends the weekends with her as he works throughout the week. She states that at baseline she is totally (I) and able to perform all of her ADL/IADL routines. She states that she can drive but has been resting due to a TIA that she suffered a couple weeks ago. She notes that she doesn't need a lot of (A). Equipment owned/DME: None SUBJECTIVE: Pt was lying in bed, she states that she is tired and has had diarrhea 2x this morning. She states that she would like to return home. OBJECTIVE: General Observation: Pleasant and agreeable to OT session. She has an IV in her (L) UE Mental Status: A&Ox3 Pain: no c/o pain ROM: RUE AROM WFL L UE AROM WFL STRENGTH: RUE 4+/5 throughout LUE 5/5 throughout FUNCTIONAL MOBILITY/ADLS: Supine-sit (I) Sit-supine (I) BATHING Pt denies, she does have ROM WFL to be able to perform this but refuses at todays session. DRESSING Pt is (I) with don and doffing (B) socks but denies all other dressing this morning. GROOMING AROM WFL and pt is able to perform this (I) with ideal ROM And no restrictions. TOILETING Pt has been incontinent 2x this morning already. She states that she is (I) with her toileting routine and that she doesn't need (A). OT will work with pt towards more functional (I) with this. EATING Pt denies reporting that she is not hungry this morning. BALANCE: Static sitting Normal Dynamic Sitting Normal Static Standing Good Dynamic Standing Good SPECIAL TESTS: Daily Activity Limitations Standardized Measure [facility] AM -PAC ?6 clicks? Daily Activity Inpatient Short Form: Raw score: 22 Standardized score: 47.10 CMS score: 25.80% INFORMED CONSENT/EDUCATION: Pt instructed in purpose of OT Consult and plan of care. ASSESSMENT: Patient is a 75-year-old female referred to occupational therapy services with diagnosis of DVT prophylaxis, fever, leukopenia, thrombocytopenia, hypomagnesemia, dysphasia, balance deficits, TIA, colitis, nausea with vomitting and diarrhea, weakness and acute UTI. Patient presents with clinical signs and symptoms consistent with dx, as demonstrated by the following impairment level findings/functional limitations: Decreased functional activity tolerance, decreased (I) with toileting routine as pt continues to be incontinent, increased fatigue. AMPAC score 22 Patient is assessed as a Low 12150 complexity based on the following: History: see above Examination: see functional limitations as noted above Presentation: evolving Decision Making: AMPAC score 22 GOALS Goals x1 week 1. Transfers (I) 2. Dressing seated (I) 3. Bathing standing at sink (I) 4. Toileting (I) 5. Eating (I) PLAN OF CARE/TREATMENT PLAN: 1x/day, 5 days/ week x 1week Initiate Occupational Therapy Services for bathing, dressing, grooming, toileting, eating, transfer training. DISCHARGE RECOMMENDATIONS Based on pts current level of function, OT recommends that pt return home when medically cleared per MD. TREATMENT TIME/MINUTES/CODES 07463, 20 minutes (08:05) [facility]
--- NOTE | 2021-02-22 08:15 | RT.EKG_ITS ---
APPROVED REPORT Exam: Resting ECG Reason for Exam: QT laura Patient Location: I HR:50 bpm ECG Measurements Heart Rate 50 AXIS VT 117 P 46 QRSd 134 QRS -14 QT 513 T 27 QTc 461 Conclusion Sinus bradycardia...rate< 60 Atrial premature complex...SV complex w/ short R-R interval Right bundle branch block...QRSd>120, terminal axis(90,270)
[2021-02-22] MEDS: Cholecalciferol (Vitamin D3) 1,000 UNIT TAB 2000 UNITS PO (08:38)
[2021-02-22] MEDS: Ascorbic Acid 500 MG TAB PO (08:38)
[2021-02-22] MEDS: Gabapentin 100 MG CAP PO ×3 (08:38→19:47)
[2021-02-22] MEDS: Potassium Chloride 10 MEQ CAPCR 20 MEQ PO (08:39)
[2021-02-22] MEDS: Pantoprazole 40 MG TABCR PO ×2 (08:39→19:47)
[2021-02-22] MEDS: Cyanocobalamin 500 MCG TAB 1000 MCG PO (08:39)
[2021-02-22] MEDS: Ferrous Sulfate 325 MG TAB PO (08:39)
[2021-02-22 09:19] LABS: HCT 30.6 % (36.0-46.0); MCH 30.8 pg (27.0-33.0); MCHC 32.7 % (32.0-36.0); MCV 94.2 fL (80-95); Platelet Count 137 10^3/uL (130-400); RBC 3.25 10^6/uL (3.93-5.22); RDW 13.9 % (11.7-14.6); WBC 6.32 10^3/uL (4.4-10.8)
[2021-02-22] MEDS: Normal Saline 500 ML 100 ML IV (10:22)
[2021-02-22] MEDS: Normal Saline Flush 10 ML SYR IVP (10:23)
[2021-02-22] MEDS: Cholestyramine/Aspartame PKT 1 EACH PO ×2 (10:24→18:48)
[2021-02-22 11:34] LABS: Haptoglobin 309 mg/dL (32-197)
--- NOTE | 2021-02-22 11:35 | CMPROGNOTE_ITS ---
Care Management Progress Note S/O: Maegan was lying in bed, her friend at her bedside. The two were bantering back in forth with good humor while discussing discharge plans. Her friend and neighbor at [facility] reported she would be a main support person when Maegan returns home; anticipated for tomorrow. Maegan shared no concerns central to returning to her camp and reported she anticipates having new VNA support. CM continues to follow. A: 75 year old female admitted to [facility] 02/18/21 for fall, weakness, thrombocytopenia P: Maegan will likely be discharged back to her camp with new home health services for RN and PT. She will follow up with her community providers and plan of care and transport with a friend.
[2021-02-22 11:38] LABS: Campylobacter PCR Negative (Negative); Salmonella PCR Negative (Negative); Shiga Toxin PCR Negative (Negative); Shigella/Enteroinvasive Ecoli Negative (Negative)
[2021-02-22 12:40] VITALS: BP 178/70; PULSE 45; RESP 18; TEMP 36.3; O2SAT 96
--- NOTE | 2021-02-22 12:40 | W.PM.PROGNOT ---
Date of Service Date of service: 02/22/21 Time of Service: 12:40 Assessment and Plan Assessment and plan (1) Fever: Start date: 02/22/21 Start time: 12:51 Status: Resolved Assessment and plan: Defervesced. Feeling great Qualifiers: Fever type: unspecified Qualified Code(s): R50.9 - Fever, unspecified (2) Weakness: Start date: 02/22/21 Start time: 12:51 Status: Acute Assessment and plan: Weakness is improving, continue to work with PT, recommend RN/PT/OT on discharge, she is tired today but that is because she did not sleep She is sitting up in chair, she feels very comfortable (3) Thrombocytopenia: Start date: 02/22/21 Start time: 12:54 Status: Chronic Assessment and plan: improving. likely from the rocephin, Platelet count normalized at 137, she is anemic given IV iron and started on iron supplementation with vitamin C (4) DVT prophylaxis: Start date: 02/22/21 Start time: 12:54 Status: Acute Assessment and plan: Heme stools negative will restart Pletal and ASA, on PPI BID , (5) Discharge planning issues: Start date: 02/22/21 Start time: 12:55 Status: Acute Assessment and plan: home when medically ready discussed with Dr. De La Paz Subjective Subjective Patient reports: feels better Interval history since last seen: Patient sitting up in chair. She states she is tired, she did not sleep well. Otherwise she is feeling better. She started having diarrhea. She is on day 3 of flagyl and 2 of aztreonam. She would like to go home tomorrow, her numbers are improving. platelets up to 137, no longer pancytopenic. If she feels well enough she could go home on a course of flagyl. after 3 days of aztrenom. She denies CP, SOB. Will give questryan for diarrhea. Exam Const General: cooperative, comfortable, no acute distress and not lethargic Orientation: alert, awake and oriented x3 HENMT Head: normal to inspection, normocephalic and atraumatic Eyes Pupils: PERRL EOM: EOM intact bilaterally Neck Neck: normal visual inspection and no lymphadenopathy Resp Effort & Inspection: normal respiratory effort and able to speak in complete sentences Auscultation: clear to auscultation bilaterally Cardio Jugular venous pressure: no JVD Heart Sounds: S1 normal, S2 normal, no click, no gallops and no murmurs GI Inspection: normal to inspection Palpation: soft, no hepatosplenomegaly and not rigid Auscultation: high-pitched sounds and hyperactive bowel sounds General: No CVA tenderness and deferred Back/Spine/Pelvis Back: no CVA tenderness Thoracic/Lumbar Spine: thoracic and lumbar spine normal to inspection and No thoracic spinal tenderness Pelvis: no pain with anterior-posterior compression Neuro General: patient alert and patient awake Extrem General: normal to inspection and no edema Right upper extremity: normal to inspection and full ROM Left upper extremity: normal to inspection and full ROM Right lower extremity: normal to inspection Left lower extremity: normal to inspection Objective Last Vital Signs Temp 35.4 C L 02/22/21 06:57 Pulse 49 L 02/22/21 06:57 Resp 14 02/22/21 06:57 BP 154/76 H 02/22/21 06:57 Pulse Ox 91 L 02/22/21 06:57 Laboratory Results - last 24 hr 02/20/21 02/20/21 02/22/21 09:25 19:55 06:18 WBC RBC Hgb Hct MCV MCH MCHC RDW Plt Count MPV Haptoglobin 309 H Sodium 143 Potassium 4.0 Chloride 112 H Carbon Dioxide 23.5 Anion Gap 7.5 BUN 14 Creatinine 1.2 H Estimated GFR/1.73 m2 43.91 Glucose 100 Calcium 8.2 L Stool Campylobacter PCR Negative Stool Salmonella PCR Negative Stool Shigella PCR Negative Shiga Toxin (PCR) Negative 02/22/21 06:18 WBC 6.32 D RBC 3.25 L Hgb 10.0 L Hct 30.6 L MCV 94.2 MCH 30.8 MCHC 32.7 RDW 13.9 Plt Count 137 MPV 13.0 H Haptoglobin Sodium Potassium Chloride Carbon Dioxide Anion Gap BUN Creatinine Estimated GFR/1.73 m2 Glucose Calcium Stool Campylobacter PCR Stool Salmonella PCR Stool Shigella PCR Shiga Toxin (PCR)
[2021-02-22 12:43] VITALS: BP 172/68; PULSE 48
[2021-02-22 14:03] LABS: Lyme Ab w Rflx to Lyme Confirm Positive (Negative)
--- NOTE | 2021-02-22 14:28 | CHAPLAIN ---
Maegan was up in her chair and had just finished her food order when I visited. She told me about spending her steiner on [facility] for the past several years. She worked in [place] before retiring. Her stays in the [place] area to work and joins her at [facility] for the weekend. She said her to the ED staff to keep Maegan until they figured out what is going on. She shared personal history, telling me about her son's deaths. [place], and the survived for 16 years after a brain aneurysm. Maegan very much likes her privacy, one reason she is happy to be at the [facility] where there are few neighbors.
[2021-02-22 15:30] VITALS: BP 166/68; BP 170/76; PULSE 51; RESP 18; TEMP 36.5; O2SAT 97
[2021-02-22] MEDS: Cilostazol 100 MG TAB PO (15:46)
--- NOTE | 2021-02-22 16:00 | PT.INDS ---
Date of service: 03/01/21 Time of Service: 08:05 PT Notes Visit Reasons: Fall,Weakness,Thrombocytopenia Physical Therapy Inpatient Discharge Summary Date: 02/22/2021 Dates of service: 02/19/2021 through 02/22/2021 This is a clinical summary of care provided for the duration of dates listed above. No charge was made in the completion of this documentation. Referring Doctor: Gauri Valadez NP PT Orders: PT CONSULT: Eval/treat. Precautions: Fall. Standard. Activity as tolerated. Patient Profile/Admitting Diagnosis: Maegan is a 75-year-old female who presented to the ED on 02/19/2021 with weakness and a fall (found by on the floor). Patient was initially admitted to the ED February 16 for colitis and on February 18 for urinary tract infection and generalized weakness. Patient now with diagnosis of hypomagnesemia, thrombocytopenia, leukopenia, weakness, and acute urinary tract infection. PMHX: Medical History (Updated 02/19/21 @ 07:52 by Yonatan Tomas MD) Abdominal aortic aneurysm Cholelithiasis COPD (chronic obstructive pulmonary disease) Depressed GERD (gastroesophageal reflux disease) Hiatal hernia Hyperlipidemia Surgical History Abdominal hysterectomy Cholecystectomy Endoscopy Intra-Articular, Open Social History/Home Situation: Lives with . Does not use any assistive device. Prepares meals, does laundry, and enjoys gardening. Equipment Owned/DME: None Subjective: NT. See most recent SUGAR REFINERY SUPERVISOR notes. Objective: General Observation: NT. See most recent SUGAR REFINERY SUPERVISOR notes. Mental Status: NT. See most recent SUGAR REFINERY SUPERVISOR notes. Pain: NT. See most recent SUGAR REFINERY SUPERVISOR notes. ROM: Right Upper Extremity: Shoulder Flexion WFL. Shoulder abduction WFL. Elbow flexion WFL. Wrist flexion WFL. Functional opening and closing of hand WFL. Left Upper Extremity: Shoulder Flexion WFL. Shoulder abduction WFL. Elbow flexion WFL. Wrist flexion WFL. Functional opening and closing of hand WFL. Right Lower Extremity: Hip flexion WFL. Hip abduction WFL. Knee flexion WFL. Ankle dorsiflexion WFL. Ankle plantarflexion WFL. Left Lower Extremity: Hip flexion WFL. Hip abduction WFL. Knee flexion WFL. Ankle dorsiflexion WFL. Ankle plantarflexion WFL. Strength: Right Upper Extremity: Shoulder flexors 4-/5. Shoulder abductors 4-/5. Elbow flexors 4-/5. Elbow extensors 4-/5. Front Office Coordinator strong. Left Upper Extremity: Shoulder flexors 4-/5. Shoulder abductors 4-/5. Elbow flexors 4-/5. Elbow extensors 4-/5. Front Office Coordinator strong. Right Lower Extremity: Hip flexors 4-/5. Hip abductors 4-/5. Knee flexors 4-/5. Knee extensors 4-/5. Ankle dorsiflexors 4-/5. Ankle plantarflexors 4-/5. Left Lower Extremity: Hip flexors 4-/5. Hip abductors 4-/5. Knee flexors 4-/5. Knee extensors 4-/5. Ankle dorsiflexors 4-/5. Ankle plantarflexors 4-/5. Bed Mobility/Transfers: Rolling independent Supine to sit independent Sit to stand supervision Stand to sit standby assist Bed to reclining chair standby assist Gait: Instructed patient with level surface ambulation of using single-point cane 400 feet requiring stand by assist. Wilma improved use. Step height improved. Step length improved. Gait: Up and down three 4-inch steps ands two 6-inch steps holding onto bilateral rails with step-to gait pattern independently. Balance: Static Sitting: Normal Dynamic Sitting: Normal Static Standing: Fair Dynamic Standing: Fair Itching URI bedbugs score Assessment: Patient continues to present with clinical signs and symptoms consistent with current/admitting diagnoses that have resulted to mobility limitations, gait instability, generalized weakness, and overall ADL decline as demonstrated by the following impairment level findings: 1. Decreased strength to BUE/LE major muscle groups 2. Impaired sitting/standing balance 3. Impaired activity tolerance 4. Fatigue Impairments are continuing to contribute to the following functional limitations: 1. Difficulty with ambulation without assistive device and physical assistance 2. Increased completion time for mobility ADL performance 3. Increased risk for falls Goals: Goals X1 week 1. Supine-Sit independent MET 2. Sit-Supine independent MET 3. Sit-Stand independent NOT MET 4. Stand-Sit independent with single-point cane NOT MET 5. Bed-Chair independent with single-point cane NOT MET 6. Chair-Bed independent with single-point cane NOT MET 7. Independent gait on level surface with use of single-point cane for at least 300 feet without report of pain nor dyspnea NOT MET 8. Good static and dynamic standing balance/tolerance NOT MET DISCHARGE RECOMMENDATIONS: Patient will benefit from home health PT services in order to progress mobility level using least restrictive assistive ambulatory device, assess home safety, identify additional equipment needs, and establish a functional maintenance program that will increase ability of patient to remain at home. TREATMENT CODE/TIME: [place] Thank you for the opportunity to participate in the care of this patient. Cherise Recio PT, DPT, CLT [facility] [place], [place]
[2021-02-22] MEDS: Doxycycline Hyclate 100 MG CAP PO (17:37)
[2021-02-22 17:44] LABS: B. miyamotoi PCR Negative (Negative); Babesia divergens/MO-1 Negative (Negative); Babesia duncani Negative (Negative); Babesia microti Negative (Negative); Ehrlichia chaffeensis Negative (Negative); Ehrlichia ewingii/canis Negative (Negative); Ehrlichia muris eauclairensis Negative (Negative)
[2021-02-22] MEDS: Atorvastatin 40 MG TAB PO (19:46)
[2021-02-22] MEDS: metroNIDAZOLE 500 MG TAB PO (19:47)
[2021-02-22 19:59] VITALS: O2SAT 96
[2021-02-22] MEDS: Melatonin 3 MG TAB 9 MG PO (21:50)
[2021-02-22] MEDS: Zolpidem 5 MG TAB PO (21:50)
[2021-02-22] MEDS: Lisinopril 5 MG TAB PO (21:51)
[2021-02-22] MEDS: Sertraline 50 MG TAB 100 MG PO (21:51)
[2021-02-22] MEDS: Aspirin E.C. 81 MG TABEC PO (21:52)
[2021-02-23 06:18] VITALS: BP 112/78; PULSE 55; RESP 16; TEMP 36.3; O2SAT 94
[2021-02-23] MEDS: Doxycycline Hyclate 100 MG CAP PO (06:20)
[2021-02-23 06:52] VITALS: BP 140/58; PULSE 56; RESP 16; TEMP 36.3; O2SAT 91
[2021-02-23 07:01] LABS: Abs Immature Grans 0.04 10^3/uL (0.0-0.06); HCT 30.5 % (36.0-46.0); HGB 10.1 g/dL (11.2-15.7); MCHC 33.1 % (32.0-36.0); MCV 93.6 fL (80-95); MPV 12.1 fL (8.0-11.0); Nucleated RBC 0 %; RBC 3.26 10^6/uL (3.93-5.22); RDW 14.3 % (11.7-14.6); RDW-SD 48.7 fL; WBC 7.51 10^3/uL (4.4-10.8)
[2021-02-23 07:26] LABS: Anion Gap 7.5 mmol/L (3-11); BUN 11 mg/dL (7-18); CO2 22.5 mmol/L (21.0-32.0); CREATININE 1.2 mg/dL (0.55-1.02); Calcium 8.3 mg/dL (8.5-10.1); Chloride 113 mmol/L (98-107); Estimated GFR 43.91 (mL/min/1.73m2); Glucose 99 mg/dL (74-106); Potassium 4.2 mmol/L (3.5-5.1); Sodium 143 mmol/L (136-145)
[2021-02-23 07:38] LABS: Absolute Eosinophil Count 0.15 10^3/uL (0.0-0.7); Absolute Lymphocyte Count 2.63 10^3/uL (1.2-3.4); Absolute Monocyte Count 0.38 10^3/uL (0.1-0.8); Absolute Neutrophil Count 4.36 10^3/uL (1.2-6.7); Atypical Lymphocytes % 4; Bands % 2; Diff Comment Manual Differential; Platelet Count 189 10^3/uL (130-400)
[2021-02-23 07:39] LABS: Poikilocytes 1+
[2021-02-23] MEDS: Ascorbic Acid 500 MG TAB PO (08:01)
[2021-02-23] MEDS: metroNIDAZOLE 500 MG TAB PO ×2 (08:01→14:17)
[2021-02-23] MEDS: Cilostazol 100 MG TAB PO (08:01)
[2021-02-23] MEDS: Gabapentin 100 MG CAP PO ×2 (08:01→14:17)
[2021-02-23] MEDS: Cholecalciferol (Vitamin D3) 1,000 UNIT TAB 2000 UNITS PO (08:01)
[2021-02-23] MEDS: Pantoprazole 40 MG TABCR PO (08:02)
[2021-02-23] MEDS: Ferrous Sulfate 325 MG TAB PO (08:02)
[2021-02-23] MEDS: Cyanocobalamin 500 MCG TAB 1000 MCG PO (08:02)
[2021-02-23 08:30] LABS: Anaplasma phagocytophilum Positive (Negative)
[2021-02-23] MEDS: Cholestyramine/Aspartame PKT 1 EACH PO (10:03)
--- NOTE | 2021-02-23 10:40 | DSE_ITS ---
Date of service: 02/23/21 Time of Service: 14:13 DS: Diagnosis Discharge Diagnosis (1) Fever: Status: Resolved (2) Weakness: Status: Acute (3) Thrombocytopenia: Status: Chronic Discharge Plan Disposition Patient Disposition: HOME W/HOME HEALTH SERVICE Condition: Improving Discharge Details Reason For Visit: Fall,Weakness,Thrombocytopenia Admit Date/Time: 02/20/21 09:31 Admit Provider: Yonatan Tomas Attending Provider: Yonatan Tomas Primary Care Provider: Nivia Mendosa Home Meds and New Rx's Prescriptions: New doxycycline hyclate 100 mg Capsule 100 mg PO Q12H Qty: 42 RF: 0 metronidazole 500 mg Tablet 500 mg PO TID Qty: 15 RF: 0 Prevalite 4 gram Powder In Packet 1 ea PO 1000,1900 Qty: 14 RF: 0 Continued sertraline 50 MG tablet 100 mg PO HS RF: 0 albuterol sulfate [Proventil HFA] 6.7 GM HFA aerosol inhaler 2 puff Inhalation QID PRN PRNQty: 1 RF: 6 cilostazol [Pletal] 50 MG tablet 100 mg PO BID RF: 0 zolpidem 10 MG tablet 10 mg PO HS RF: 0 aspirin 81 MG tablet,delayed release (DR/EC) 81 mg PO HS RF: 0 cyanocobalamin (vitamin B-12) [Vitamin B-12] 1,000 mcg Tablet 1,000 mcg PO DAILY RF: 0 gabapentin 100 mg Capsule 100 mg PO TID RF: 0 lisinopril 5 mg tablet 5 mg PO HS RF: 0 cholecalciferol (vitamin D3) [Vitamin D3] 50 mcg (2,000 unit) Capsule 50 mcg PO DAILY RF: 0 ondansetron HCl [Zofran] 4 mg tablet 4 mg PO Q8H PRNQty: 10 RF: 0 dicyclomine 20 mg tablet 20 mg PO BID PRN (Reason: abdominal discomfort) Qty: 7 RF: 0 atorvastatin 40 mg tablet 40 mg PO DAILY RF: 0 Discontinued nitrofurantoin monohyd/m-cryst [Macrobid] 100 mg capsule 100 mg PO BID Qty: 10 RF: 0 Discharge Instructions Instructions: Lyme Disease (ED) Additional Instructions: take all antibiotics as prescribed even if you feel better. drink at least 6-8 glasses of water daily to stay well hydrated Referrals: Nivia Mendosa [Primary Care Provider] - Activity:: Activity as Tolerated Equipment/Supplies:: No Equipment Needed Diet:: As Tolerated Discharge Orders Discharge Orders: Discharge Order (Routine); Ordered 02/23/21 Ordered By: Gauri Valadez DS: Summary Time Spent with Patient providing and/or coordinating discharge services: Greater than 30 minutes Status at Discharge Functional status at discharge: uses cane/walker Overall status at discharge: patient is progressing back to baseline Mental Status: mental status grossly normal Speech and Movement: speech and movement normal Mood: congruent mood Affect: normal affect Exam Const General: cooperative, comfortable and no acute distress Orientation: alert, awake and oriented x3 HENMT Head: normal to inspection, normocephalic and atraumatic Eyes Pupils: PERRL EOM: EOM intact bilaterally Neck Neck: normal visual inspection Resp Effort & Inspection: normal respiratory effort Auscultation: clear to auscultation bilaterally Cardio Heart Sounds: no murmurs GI Inspection: normal to inspection Palpation: soft General: No CVA tenderness Back/Spine/Pelvis Back: no CVA tenderness Thoracic/Lumbar Spine: thoracic and lumbar spine normal to inspection and No thoracic spinal tenderness Neuro General: patient alert and patient awake Extrem General: normal to inspection and no edema Psych Mental Status: mental status grossly normal Speech and Movement: speech and movement normal Mood: congruent mood Affect: normal affect DS: Data Vitals/I&O Vitals and I&O: Vital Signs Temperature 36.3 C L 02/23/21 06:52 Temperature Source Skin 02/23/21 06:52 Pulse 56 L 02/23/21 06:52 Pulse Rhythm Regular 02/23/21 02:13 Pulse 76 02/18/21 23:00 Respiratory Rate 16 02/23/21 06:52 Respiratory Effort Non-Labored 02/23/21 02:13 Respiratory Depth Normal 02/23/21 02:13 Respiratory Pattern Normal 02/23/21 02:13 Blood Pressure 140/58 L 02/23/21 06:52 Blood Pressure Mean 76 02/18/21 22:45 Blood Pressure Position Supine 02/18/21 21:34 Pulse Oximetry 91 L 02/23/21 06:52 Oxygen Delivery Method Room Air 02/23/21 06:52 Oxygen Flow Rate 0 02/23/21 06:52 Pain Level 0 02/23/21 06:52 Comment 02/22/21 15:08 Intake & Output 02/22/21 02/22/21 02/23/21 11:59 23:59 11:59 Intake Total 1203.334 / 1586.667 383.333 / 1586.667 Output Total 300 / 300 Balance 1203.334 / 1286.667 83.333 / 1286.667 Intake: IV 843.334 / 986.667 143.333 / 986.667 Oral 360 / 600 240 / 600 Output: Urine 300 / 300 Other: Urine Color Yellow Yellow Pale Urine Appearance Clear Clear Clear Urine Odor Normal Normal Comment Void x1 in the bedside commode. mix with stool Stool Occult Blood Negative Stool Size Moderate Smear Small Stool Characteristics Liquid Soft Liquid Voiding Methods Bedside Commode Bedside Commode Diaper Diaper Incontinent Data Completed and Pending Labs on day of discharge: Labs from last 24 hours 02/23/21 02/23/21 02/20/21 06:30 06:30 19:55 WBC 7.51 RBC 3.26 L Hgb 10.1 L Hct 30.5 L MCV 93.6 MCH 31.0 MCHC 33.1 RDW 14.3 Plt Count 189 MPV 12.1 H Immature Gran % 0.0 Neutrophils % 56.0 Band Neutrophils % 2 Lymphocytes % 31.0 Atypical Lymphs % 4 Monocytes % 5.0 Eosinophils % 2.0 Basophils % 0.0 Nucleated RBC % 0 Absolute Neutrophils 4.36 Absolute Lymphocytes 2.63 Absolute Monocytes 0.38 Absolute Eosinophils 0.15 Absolute Basophils 0.00 RBC Morphology See Below Poikilocytosis 1+ Haptoglobin Sodium 143 Potassium 4.2 Chloride 113 H Carbon Dioxide 22.5 Anion Gap 7.5 BUN 11 Creatinine 1.2 H Estimated GFR/1.73 m2 43.91 Glucose 99 Calcium 8.3 L Stool Description Stool Campylobacter PCR Negative Stool Salmonella PCR Negative Stool Shigella PCR Negative Stool Ova & Parasites A.phagocytophil DNA PCR B. divergens/MO-1 PCR Babesia duncani (PCR) Babesia microti DNA PCR Borrelia (PCR) B. burgdorferi IgG (IB) B. burgdorferi IgG Band B. burgdorferi IgM (IB) B. burgdorferi IgM Band Lyme Disease Antibody Lyme Disease Interpret E.chaffeensis DNA (PCR) E.ewingii/canis DNA PCR E. muris-like DNA (PCR) Shiga Toxin (PCR) Negative 02/20/21 02/20/2102/18/21 19:55 09:25 21:47 WBC RBC Hgb Hct MCV MCH MCHC RDW Plt Count MPV Immature Gran % Neutrophils % Band Neutrophils % Lymphocytes % Atypical Lymphs % Monocytes % Eosinophils % Basophils % Nucleated RBC % Absolute Neutrophils Absolute Lymphocytes Absolute Monocytes Absolute Eosinophils Absolute Basophils RBC Morphology Poikilocytosis Haptoglobin 309 H Sodium Potassium Chloride Carbon Dioxide Anion Gap BUN Creatinine Estimated GFR/1.73 m2 Glucose Calcium Stool Description Not Applicable Stool Campylobacter PCR Stool Salmonella PCR Stool Shigella PCR Stool Ova & Parasites SEE BELOW A.phagocytophil DNA PCR Positive A B. divergens/MO-1 PCR Negative Babesia duncani (PCR) Negative Babesia microti DNA PCR Negative Borrelia (PCR) Negative B. burgdorferi IgG (IB) Pending B. burgdorferi IgG Band Pending B. burgdorferi IgM (IB) Pending B. burgdorferi IgM Band Pending Lyme Disease Antibody Positive A Lyme Disease Interpret Pending E.chaffeensis DNA (PCR) Negative E.ewingii/canis DNA PCR Negative E. muris-like DNA (PCR) Negative Shiga Toxin (PCR) Preliminary micro results at discharge 02/20/21 15:51 Blood Culture - Preliminary Blood NO GROWTH 48 HOURS 02/20/21 15:41 Blood Culture - Preliminary Blood NO GROWTH 48 HOURS [facility] Medical History (Updated 02/21/21 @ 14:42 by Bhumi Childers NP) Abdominal aortic aneurysm Cholelithiasis COPD (chronic obstructive pulmonary disease) Depressed GERD (gastroesophageal reflux disease) Hiatal hernia Hyperlipidemia Surgical History Abdominal hysterectomy Cholecystectomy Endoscopy Intra-Articular, Open Family History Mother Personal history of malignant neoplasm OVARIAN Father No problems noted. Brother No problems noted. Brother No problems noted. Grandfather No problems noted. Grandfather No problems noted. Grandmother Heart disease Asthma Grandmother No problems noted. Son Aneurysm Stroke Son Depression Daughter No problems noted. FAMILY HISTORY Kidney stones Gallstones COPD (chronic obstructive pulmonary disease) Social History Smoking/Tobacco Use Status: Current every day Tobacco Type: cigarettes Smoking risk assessment performed?: Yes Alcohol Intake: never Drug use: Never Substance use type: does not use Do you feel safe at home: Yes Do you feel safe in your relationship?: Yes
--- NOTE | 2021-02-23 10:52 | PDOC.CMDIS ---
- If Service Date Differs Date of service: 02/23/21 Time of Service: 14:29 LACE Index Scoring Tool - Questions: Length of Stay (in days): 3 Acuity (Admit via E.D.?): Yes Comorbidities: Chronic Pulmonary Disease E.D. Visits: 4 - Answers: Total Score: 12 Risk of Readmission: High Risk Care Management Discharge Reason for Hospitalization: weakness Discharge Plan: Maegan will likely be [place] back to her [place] with new home health services for RN and PT. She will follow up with her community providers and plan of care as prescribed and transport with a friend. Patient/Family Education Needs: Review discharge instructions, discuss Ask Me Three. Services Needed at Discharge: Home Health Care Services (New RN/PT)
--- NOTE | 2021-02-23 10:59 | OT.INTREAT ---
Date of service: 02/23/21 Time of Service: 08:10 Occupational Therapy Notes Occupational Therapy Inpatient Treatment Note Date: 02/23/21 PRECAUTIONS: Fall, standard, Full SUBJECTIVE: Pt was sitting in chair when OT arrived. She states that she is leaving today and wants to return to her own home to rest. OBJECTIVE: PAIN: c/o pain throughout her body BATHING: sitting in chair max (A) Set up/clean up Upper Body: (I) Lower Body: Min (A) DRESSING: sitting in chair Upper Extremity: (I) [facility] gown Lower Extremity: pt denies GROOMING: sitting in chair (I) brushing hair ASSESSMENT/PLAN: Pt is making gains, she is struggling with incontinence and diarrhea today. She has not been making it to the bathroom in time and states that she is too tired. Functionally she is receptive to her ADLs today and making increased gains. TREATMENT CODES/TIME: [id number], 20 minutes (07:40) Ora Rutherford OTR/L [facility]
--- NOTE | 2021-02-23 11:04 | PT.INTREAT ---
Date of service: 02/23/21 Time of Service: 10:25 PT Notes Visit Reasons: Fall,Weakness,Thrombocytopenia Inpatient Physical Therapy Treatment Note [facility] Date: 02/23/2021 PRECAUTIONS: Fall SUBJECTIVE: Maegan states that she is feeling better and that she hopes to go home today. OBJECTIVE: Patient issued SPC, [employer] form completed and turned into Care Management. PAIN: No c/o pain BED MOBILITY/TRANSFERS Supine-sit: I with HOB flat Sit-supine: I with HOB flat Sit-stand: S Stand-sit: S Bed-Chair: SBA Chair-bed: SBA GAIT Assistive Device: No AD SPC in a.m.; SPC in p.m. Weight bearing: Full Assist: CGA-SBA Distance: 125' without AD 275' with SPC in a.m.; 300' in p.m. Deviation: Improved stability with SPC versus without AD, path deviation R THEREX: Patient was instructed in a supine LE strengthening program, as per flow sheet, which she tolerates well. STAIRS: Up/down 3x4 and 2x6 using B rails and a step-to pattern, independently ASSESSMENT: Patient tolerated session without complaint. She demonstrates unsteady gait without use of AD, improving with use of SPC. PLAN: Continue with gait training with least restrictive device for improved stability with gait. TREATMENT CODE/TIME: Session 1: 30 minutes; [id number], [id number] (10:25) Session 2: 10 minutes; [id number] (13:40)
--- NOTE | 2021-02-23 14:19 | PDOC.HHF2F_ITS ---
Home Health Certification Home Health Certification: 1. Encounter Date and Reason I certify that Maegan Santos was seen by Gauri Valadez on 02/23/21 and that I had a lifw-md-tsde encounter with this patient that meets the physician face to face encounter requirements. 2. Clinical Findings Supporting Skilled Need and Homebound Status I certify that home health services are medically necessary, include either intermittent half-way and/or physical/speech therapy, and that this patient is homebound in that absences from the home require considerable and taxing effort and are infrequent or of short duration, or are attributable to the need to receive medical care. [X] (a) Attached documentation from encounter provides clinical findings supporting skilled need and homebound status (including what assistance patient requires to leave the home). The encounter with the patient was in whole, or in part, for the following medical condition, which is the primary reason for home health care: Fall,Weakness,Thrombocytopenia Detention: routine nursing evaluation and medication oversight Physical Therapy: routine evaluation and treatment Homebound: patient unable to safely leave the house unassisted d/t generalized weakness. 3. Certification and Authentication I certify that I composed the above information based on my clinical judgement relating to this patient's medical condition and, if applicable, clinical findings communicated to me by the NPP or inpatient physician who performed the Home Health Referral. All further orders will be obtained through _ Nivia Mendosa MD_(Community Based Physician - PCP)
[2021-02-23 15:16] VITALS: BP 155/72; PULSE 57; RESP 16; TEMP 36.7; O2SAT 96
[2021-02-23 15:19] LABS: IgG Band(s) p93; IgG Immunoblot Positive (Negative); IgM Band(s) p23; IgM Immunoblot Negative (Negative)
== END 2021-02-23 15:39 | disposition home health service (06) | DRG 868 ==
LOC: ER 23:16 → MS 02-19 08:31
PROVIDERS: Internal Medicine; Nurse Practitioner Acute Care; Nurse Practitioner Family; Admitting Provider Family Medicine; Emergency Provider Registered Nurse Emergency; PCP Internal Medicine; Visit Provider Family Medicine
DX: A77.49 Other ehrlichiosis (principal); A09 Infectious gastroenteritis and colitis, unspecified; N39.0 Urinary tract infection, site not specified; D61.818 Other pancytopenia; B96.89 Other specified bacterial agents as the cause of diseases classified elsewhere; R53.1 Weakness; D69.6 Thrombocytopenia, unspecified; I71.4 Abdominal aortic aneurysm, without rupture; J44.9 Chronic obstructive pulmonary disease, unspecified; F32.9 Major depressive disorder, single episode, unspecified; K21.9 Gastro-esophageal reflux disease without esophagitis; K44.9 Diaphragmatic hernia without obstruction or gangrene; E78.5 Hyperlipidemia, unspecified; F17.210 Nicotine dependence, cigarettes, uncomplicated
CPT/HCPCS: 36415; 71275; 80048; 80053; 85027; 85384; 86617; 86850; 86900; 86901; 87040; 87493; 87505; 87635; 87798; 93005; 96360; 97110; 97162; 97165; 97530; 97535; 99285; 70450; 71046; 82728; 83010; 83540; 83550; 83615; 83735; 84132; 84484; 85014; 85018; 85025; 85045; 85379; 86618; 86880; 87177; 93010; 93970; 99219; 99224; 99225; 99232; 99233; 99239; J0696; J0744; J1756; J2405; J3475; J3490; J7512

== ENCOUNTER 2021-03-23 12:24 | Inpatient (IN) | payer MEDICARE, SELFPAY ==
[2021-03-23] VITALS (58 sets, daily range): BP systolic 73–170; BP diastolic 58–77; PULSE 48–90; RESP 5–38; TEMP 35.6–36.5; O2SAT 87–98
--- NOTE | 2021-03-23 13:15 | RT.EKG_ITS ---
APPROVED REPORT Exam: Resting ECG Reason for Exam: sob Patient Location: E HR:75 bpm ECG Measurements Heart Rate 75 AXIS DE 122 P 44 QRSd 125 QRS -8 QT 496 T -86 QTc 553 Conclusion Sinus rhythm...normal P axis, V-rate 60- 99 Probable left atrial enlargement...P >50mS, <-0.10mV V1 Right bundle branch block...QRSd>120, terminal axis(90,270) Abnormal T, consider ischemia, lateral leads...T <-0.20mV, I aVL V5 V6 Prolonged QT interval...QTc >500mS. T wave inversion in inferior and anterolateral leads. No STEMI. I have reviewed and interpreted ECG and agree with software generated interpretation.
[2021-03-23] MEDS: methylPREDNISolone SUCC 125 MG VIAL IVP (13:25)
--- NOTE | 2021-03-23 13:32 | W.ED.GENAD ---
Discharge Plan Disposition Patient Disposition: [facility] INPATIENT Condition: Improving Discharge Details Clinical Impression: COPD exacerbation Admit Date/Time: 03/24/21 09:09 Admit Provider: Dominik Bhatia Attending Provider: Dominik Bhatia Primary Care Provider: Nivia Mendosa ED Provider: Clarisa Paz Discharge Data Discharge Date/Time-TO BE ENTERED AT DEPARTURE: 03/23/21 19:45 Medical Decision Making <RUFUS Collins - Last Filed: 03/24/21 10:43> 75-year-old female presents with shortness of breath and cough for the past week, history of COPD, continues to smoke 1 pack of cigarettes daily. Initial oxygen saturation 87% on room air, placed on 2 L nasal cannula, will obtain IV access, give IV Solu-Medrol, a DuoNeb, and the butyryl neb, initiate cardiac work-up including D-dimer. Differential is wide, includes but not excluded to COPD exacerbation, Covid, pneumonia, CHF, bronchitis, atypical ACS, etc. Initial laboratory values reveal a normal white count, no evidence of anemia, D-dimer is elevated at 1949, will pursue CTA of the chest. Electrolytes are unremarkable, creatinine 0.9 the GFR greater than 60. Glucose 99 calcium 8.3 magnesium 1.7, BNP 303, troponin less than 0.05. Covid negative Upon reevaluation patient reports minimal improvement with neb treatments. She doesn't appear in distress. Speaking in full sentences. Patient is moving more oxygen however continues to have diminished bilateral bases and rhonchi. O2 sats are now 95%. Will trial the patient on a single liter of nasal cannula O2 rather than 2 L. O2 dropped to 89% on 1 L, placed back on 2 L. Did not trial ambulate as she dropped her sats on 1L at rest. CT of chest unremarkable. Given her continued hypoxemia, negative work-up thus far for clear etiology, likely COPD exacerbation. We discussed admission, patient declines. Would prefer rather to leave AMA. We agreed that she would stay for repeat troponin and EKG. In the meantime will get respiratory therapy involved in the case and will plan to refer to pulmonology. Medical Records Medical records reviewed: Yes I reviewed the patient's medical records. Imaging Data Radiologic Study: Attestation: I personally reviewed and interpreted this imaging study as follows: Imaging: X-Ray Radiologist's impression: Exam(s) CT CHEST PE CTA EXAM: CT CHEST PE CTA CLINICAL HISTORY: sob,cough,elevated dimer. TECHNIQUE: Imaging Protocol: Axial CT angiography was performed with multi-slice acquisition and multi-planar and/or 3D reconstructions. CONTRAST MATERIAL: Intravenous: Omnipaque 350 Contrast volume:60 ml COMPARISON: CT CT CHEST PE CTA from 02/20/2021 FINDINGS: Pulmonary Arteries: No evidence of filling defect to suggest pulmonary emboli. Tracheobronchial tree: Patent where visualized. Mediastinum and Tanya: No dominant adenopathy or fluid collection. Pulmonary parenchyma: No consolidation or dominant measurable mass. Biapical scarring. Moderate emphysematous changes. Pleura: No effusion or pneumothorax. Heart: The heart is mildly dilated. coronary artery calcifications are seen. Aorta: Thoracic aorta non-dilated. Severe atherosclerotic changes. Upper abdomen: Status post cholecystectomy, otherwise unremarkable. Bones: Unremarkable for age. IMPRESSION: No evidence of pulmonary embolism or other acute abnormality. Emphysematous changes and biapical scarring.. Lab Data Lab results reviewed: Yes I reviewed the patient's lab results. Labs: Laboratory Tests Range/Units 03/23/21 03/23/21 03/23/21 13:25 13:30 13:30 WBC (4.4-10.8) 10^3/uL 8.22 RBC (3.93-5.22) 10^6/uL 4.12 Hgb (11.2-15.7) g/dL 12.6 Hct (36.0-46.0) % 39.2 MCV (80-95) fL 95.1 H MCH (27.0-33.0) pg 30.6 MCHC (32.0-36.0) % 32.1 RDW (11.7-14.6) % 14.0 Plt Count (130-400) 10^3/uL 353 D MPV (8.0-11.0) fL 9.5 Immature Gran % 0.4 Neutrophils % 53.8 Lymphocytes % 37.0 Monocytes % 6.2 Eosinophils % 2.2 Basophils % 0.4 Nucleated RBC % % 0 Absolute Neutrophils (1.2-6.7) 10^3/uL 4.43 Absolute Lymphocytes (1.2-3.4) 10^3/uL 3.04 Absolute Monocytes (0.1-0.8) 10^3/uL 0.51 Absolute Eosinophils (0.0-0.7) 10^3/uL 0.18 Absolute Basophils (0.0-0.2) 10^3/uL 0.03 RBC Morphology Normal D-Dimer (<500) ng/mlFEU Sodium (136-145) mmol/L 139 Potassium (3.5-5.1) mmol/L 3.9 Chloride (98-107) mmol/L 107 Carbon Dioxide (21.0-32.0) mmol/L 22.7 Anion Gap (3-11) mmol/L 9.3 BUN (7-18) mg/dL 12 Creatinine (0.55-1.02) mg/dL 0.9 Estimated GFR/1.73 m2 (mL/min/1.73m2) >= 60.00 Glucose (74-106) mg/dL 99 Calcium (8.5-10.1) mg/dL 8.3 L Magnesium (1.8-2.4) mg/dL 1.7 L Total Bilirubin (0.2-1.0) mg/dL 0.2 AST (15-37) U/L 35 ALT (14-59) U/L 30 Alkaline Phosphatase (46-116) U/L 68 Troponin I (<0.06) ng/mL < 0.05 NT-Pro-B Natriuret Pep (<300) pg/mL 303 H Total Protein (6.4-8.2) g/dL 6.9 Albumin (3.4-5.0) g/dL 3.3 L COVID-19 Source Nasal/Nares SARS-CoV-2 (PCR) (Negative) Negative Range/Units 03/23/21 13:30 WBC (4.4-10.8) 10^3/uL RBC (3.93-5.22) 10^6/uL Hgb (11.2-15.7) g/dL Hct (36.0-46.0) % MCV (80-95) fL MCH (27.0-33.0) pg MCHC (32.0-36.0) % RDW (11.7-14.6) % Plt Count (130-400) 10^3/uL MPV (8.0-11.0) fL Immature Gran % Neutrophils % Lymphocytes % Monocytes % Eosinophils % Basophils % Nucleated RBC % % Absolute Neutrophils (1.2-6.7) 10^3/uL Absolute Lymphocytes (1.2-3.4) 10^3/uL Absolute Monocytes (0.1-0.8) 10^3/uL Absolute Eosinophils (0.0-0.7) 10^3/uL Absolute Basophils (0.0-0.2) 10^3/uL RBC Morphology D-Dimer (<500) ng/mlFEU 1949 H Sodium (136-145) mmol/L Potassium (3.5-5.1) mmol/L Chloride (98-107) mmol/L Carbon Dioxide (21.0-32.0) mmol/L Anion Gap (3-11) mmol/L BUN (7-18) mg/dL Creatinine (0.55-1.02) mg/dL Estimated GFR/1.73 m2 (mL/min/1.73m2) Glucose (74-106) mg/dL Calcium (8.5-10.1) mg/dL Magnesium (1.8-2.4) mg/dL Total Bilirubin (0.2-1.0) mg/dL AST (15-37) U/L ALT (14-59) U/L Alkaline Phosphatase (46-116) U/L Troponin I (<0.06) ng/mL NT-Pro-B Natriuret Pep (<300) pg/mL Total Protein (6.4-8.2) g/dL Albumin (3.4-5.0) g/dL COVID-19 Source SARS-CoV-2 (PCR) (Negative) ECG Data Attestation: I personally reviewed and interpreted this ECG (s) as follows: Interpretation: Please see official report by Dr. [place]. Sinus rhythm, ventricular of 75. T wave inversion inferior-anterior lateral leads. No STEMI. <RUFUS Jenkins - Last Filed: 03/25/21 19:23> Care transitioned to myself from Jt Rodas PA-C with repeat troponin pending. In brief, patient is a pleasant 75 year old female presenting today with c/c of cough. She was concerned for pneumonia. Patient PMH significant for active smoking. Workup thus far found labs to be relatively unremarkable. She did have an elevated D-dimer and a CTA of the chest was performed. No PE was noted. However, patient was noted to have emphysematous changes with biapical scarring. At the time I assume care, patient was being evaluated by respiratory therapy. Respiratory therapy was concerned with the patient's current requirement for oxygen. She did speak with the claims representative who reviewed the CT and recommended that if patient does choose to leave AMA as she is previously indicated that she would recommend Stiolto inhaler. Repeat troponin remains within normal limits. I discussed these findings with the patient. Patient continues to require nasal cannula oxygen to maintain her above 90%. She and I had a lengthy discussion regarding disposition. I advised that if she was to stay pulmonology would be able to see her while in house. However, patient refuses to stay. Patient does demonstrate capacity. She is aware that she may have worsening symptoms that could potentially lead to by leaving AGAINST MEDICAL ADVICE at this time. Patient ambulated by nursing staff, dropped to 76% on room air. Clearly appeared to have increased work of breathing. Respiratory therapy and myself spoke with the patient again. She is now willing to stay for admission for her hypoxia and continued evaluation with plan to see pulmonology tomorrow. Family friend called, they advised that her is being currently admitted for parainfluenza. Consulted with Dr. Bhatia who agrees to admisson for hypoxia. HPI <RUFUS Collins - Last Filed: 03/24/21 10:43> General Mode of arrival: ambulatory. Date/Time Provider Initiated Documentation: 03/23/21 12:46. Limitations to Documentation: no limitations. Information obtained by: patient. HPI Narrative: This is a 75-year-old female, past medical history that includes COPD, current pack-a-day smoker, depression, GERD, hyperlipidemia, presenting for evaluation of shortness of breath and cough x1 week. Patient does not wear oxygen at home. She reports that she has a baseline cough but her cough has been worse, clear sputum. She denies recent trauma. Patient states that she was recently treated for Lyme disease. She denies headache, fever, chest pain, abdominal pain, nausea, vomiting, pain or swelling in her lower extremities. Patient states that she is primarily concerned about pneumonia, had pneumonia in the past which felt similar. Related Data Home Medications Medication Instructions Recorded Confirmed cilostazol [Pletal] 100 mg PO BID 03/29/14 03/23/21 zolpidem 10 mg PO HS 03/29/14 03/23/21 aspirin 81 mg PO HS 04/21/14 03/23/21 sertraline 100 mg PO HS tab-cap 02/12/16 03/23/21 albuterol sulfate [Proventil HFA] 2 puff INHALATION QID PRN PRN #1 04/13/16 03/23/21 hfa.aer.ad cyanocobalamin (vitamin B-12) 1,000 mcg PO DAILY 03/08/19 03/23/21 [Vitamin B-12] dicyclomine 20 mg PO BID PRN #7 tab 02/16/21 03/23/21 cholecalciferol (vitamin D3) 50 mcg PO DAILY 02/17/21 03/23/21 [Vitamin D3] ondansetron HCl [Zofran] 4 mg PO Q8H PRN #10 tab 02/17/21 03/23/21 atorvastatin 40 mg PO DAILY 02/19/21 03/23/21 Prevalite 1 ea PO 1000,1900 #14 ea 02/23/21 03/23/21 gabapentin See Rx Instructions .ROUTE .COMPLEX 03/24/21 03/24/21 doxycycline hyclate 100 mg PO BID #5 cap 03/25/21 prednisone 40 mg PO DAILY #6 tab 03/25/21 tiotropium-olodaterol [Stiolto 2 puff INHALATION DAILY #1 g 03/25/21 Respimat] Previous Rx's Medication Instructions Recorded dicyclomine 20 mg PO BID PRN #7 tab 02/16/21 ondansetron HCl [Zofran] 4 mg PO Q8H PRN #10 tab 02/17/21 Prevalite 1 ea PO 1000,1900 #14 ea 02/23/21 doxycycline hyclate 100 mg PO BID #5 cap 03/25/21 prednisone 40 mg PO DAILY #6 tab 03/25/21 tiotropium-olodaterol [Stiolto 2 puff INHALATION DAILY #1 g 03/25/21 Respimat] Allergies Allergy/AdvReac Type Severity Reaction Status Date / Time Penicillins Allergy Severe Asthma Unverified 03/23/21 13:05 attack per Pt lidocaine AdvReac Severe Dizziness/L Unverified 03/23/21 13:05 ightheade Sulfa (Sulfonamide AdvReac Intermediate Wheezing, Unverified 03/23/21 13:05 Antibiotics) rash General Stated Complaint: SOB LAVERNE: 2 Review of Systems <RUFUS Collins - Last Filed: 03/24/21 10:43> Constitutional Constitutional: Denies fatigue, Denies fever(s), Denies headache(s) and Denies weakness ENT Ears, Nose, Mouth, and Throat: Denies headache(s) and Denies neck pain Cardiovascular Cardiovascular: Denies chest pain and Reports dyspnea Respiratory Respiratory: Reports cough and Reports dyspnea Gastrointestinal Gastrointestinal: Denies abdominal pain, Denies nausea and Denies vomiting Genitourinary Genitourinary: Denies dysuria Musculoskeletal Musculoskeletal: Denies neck pain Integumentary/Breasts Skin/Breast: Denies rash Neurologic Neurologic: Denies headache(s) and Denies weakness Endocrine Endocrine: Denies fatigue PFSH <RUFUS Collins - Last Filed: 03/24/21 10:43> Medical History Abdominal aortic aneurysm Cholelithiasis COPD (chronic obstructive pulmonary disease) Depressed GERD (gastroesophageal reflux disease) Hiatal hernia Hyperlipidemia Tobacco dependence Surgical History Abdominal hysterectomy Cholecystectomy Endoscopy Intra-Articular, Open Family History Mother Personal history of malignant neoplasm OVARIAN Father No problems noted. Brother No problems noted. Brother No problems noted. Grandfather No problems noted. Grandfather No problems noted. Grandmother Heart disease Asthma Grandmother No problems noted. Son Aneurysm Stroke Son Depression Daughter No problems noted. FAMILY HISTORY Kidney stones Gallstones COPD (chronic obstructive pulmonary disease) Social History Smoking/Tobacco Use Status: Current every day Tobacco Type: cigarettes Smoking risk assessment performed?: Yes Alcohol Intake: never Drug use: Never Substance use type: does not use Do you feel safe at home: Yes Do you feel safe in your relationship?: Yes Exam <RUFUS Collins - Last Filed: 03/24/21 10:43> Const General: cooperative, comfortable, in distress (Mild) and ill appearing chronically Orientation: alert and awake [facility] Head: normal to inspection, normocephalic and atraumatic Face and sinus: normal facial exam Mouth: moist mucous membranes Throat: posterior oropharynx normal Eyes Conjunctivae: conjunctivae normal Neck Neck: normal visual inspection, full ROM, trachea midline and supple Resp Effort & Inspection: normal respiratory effort, cough Quality of cough: wet, tachypneic (Slightly) and other (Speaking in 3-5 word sentences) Auscultation: diminished lung sounds bilaterally in the lower lung avilez and rhonchi (Throughout) Cardio Rate: regular rate Rhythm: regular rhythm GI Palpation: soft and nontender Back/Spine/Pelvis Back: No back tenderness Skin General skin exam: no rashes or lesions noted Neuro General: patient alert, patient awake, moves all extremities and no focal motor deficits Cognition: normal cognition Speech: speech normal Gait: normal gait Sensory Exam: no sensory deficits noted Extrem General: normal to inspection, full ROM, capillary refill normal, no pedal edema and no calf tenderness Psych Appearance: grossly normal Mental Status: mental status grossly normal Course <RUFUS Collins - Last Filed: 03/24/21 10:43> Vital Signs Vital signs: Vital Signs Temperature 36.2 C L 03/23/21 12:28 Pulse 86 03/23/21 12:28 Respiratory Rate 24 03/23/21 12:28 Blood Pressure 170/74 H 03/23/21 12:28 Pulse Oximetry 87 L 03/23/21 12:28 Temperature 36.2 C L 03/23/21 12:28 Temperature Source Temporal Artery Scan 03/23/21 12:28 Pulse 86 03/23/21 12:28 Respiratory Rate 24 03/23/21 12:33 Respiratory Effort Labored 03/23/21 12:33 Respiratory Depth Shallow 03/23/21 12:33 Respiratory Pattern Tachypnea 03/23/21 12:33 Blood Pressure 170/74 H 03/23/21 12:28 Blood Pressure Position Sitting 03/23/21 12:28 Pulse Oximetry 87 L 03/23/21 12:28 Oxygen Delivery Method Room Air 03/23/21 12:28 Oxygen Flow Rate 0 03/23/21 12:28 Pain Level 6 03/23/21 12:28 Critical Care Time <RUFUS Collins - Last Filed: 03/24/21 10:43> Critical Care Time Critical Care Time: Yes Total Critical Care Time: 35 Attestation: Upon my evaluation, this patient had a high probability of clinically significant, life-threatening deterioration due to their current medical conditions, which required my direct attention, intervention, and personal management. I have personally provided greater than 30 minutes of critical care time exclusive of the time spend on separately billable procedures. Time includes obtaining a history, examining the patient, pulse oximetry, review of laboratory data, radiology results, discussion with consultants, arranging urgent treatment with development of a management plan, evaluation of patient's response to treatment, and monitoring for potential decompensation. Interventions were performed as documented above. Sign Out <RUFUS Collins - Last Filed: 03/24/21 10:43> Sign Out Data: Sign Out Comment: Likely COPD exacerbation, O2 sat mid to high 90s on room air without exertion. Work-up thus far including CTA chest is negative. Awaiting repeat troponin and EKG. Patient declines admission, states that she will leave AMA. Will consult with respiratory therapy and plan to refer to pulmonology. Last updated by Jt Rodas PA at 03/23/21 16:18
[2021-03-23 13:35] LABS: Source Nasal/Nares
[2021-03-23 13:36] LABS: Abs Immature Grans 0.03 10^3/uL (0.0-0.06); Absolute Basophil Count 0.03 10^3/uL (0.0-0.2); Absolute Eosinophil Count 0.18 10^3/uL (0.0-0.7); Absolute Lymphocyte Count 3.04 10^3/uL (1.2-3.4); Absolute Monocyte Count 0.51 10^3/uL (0.1-0.8); Absolute Neutrophil Count 4.43 10^3/uL (1.2-6.7); Basophils % 0.4; Eosinophils % 2.2; HCT 39.2 % (36.0-46.0); HGB 12.6 g/dL (11.2-15.7); Immature Grans % 0.4; MCH 30.6 pg (27.0-33.0); MCHC 32.1 % (32.0-36.0); MCV 95.1 fL (80-95); MPV 9.5 fL (8.0-11.0); Monocytes % 6.2; Neutrophils % 53.8; Nucleated RBC 0 %; Platelet Count 353 10^3/uL (130-400); RBC 4.12 10^6/uL (3.93-5.22); RDW-SD 49.3 fL; WBC 8.22 10^3/uL (4.4-10.8)
[2021-03-23] MEDS: Albuterol/Ipratropium 3 ML UPD VIAL UPD ×2 (13:51→22:16)
[2021-03-23] MEDS: Albuterol 2.5 MG/3 ML INH SOLN VIAL UPD (13:51)
[2021-03-23] MEDS: Ondansetron 4 MG/2 ML VIAL (13:52)
[2021-03-23 13:56] LABS: Diff Comment Agrees w/ Instrument
[2021-03-23 13:57] LABS: RBC Morphology Normal
--- NOTE | 2021-03-23 14:00 | DI.CT_ITS ---
Exam(s) CT CHEST PE CTA EXAM: CT CHEST PE CTA CLINICAL HISTORY: sob,cough,elevated dimer. TECHNIQUE: Imaging Protocol: Axial CT angiography was performed with multi-slice acquisition and mu lti-planar and/or 3D reconstructions. CONTRAST MATERIAL: Intravenous: Omnipaque 350 Contrast volume:60 ml COMPARISON: CT CT CHEST PE CTA from 02/20/2021 FINDINGS: Pulmonary Arteries: No evidence of filling defect to suggest pulmonary emboli. Tracheobronchial tree: Patent where visualized. Mediastinum and Tanya: No dominant adenopathy or fluid collection. Pulmonary parenchyma: No consolidation or dominant measurable mass. Biapical scarring. Moderate emp hysematous changes. Pleura: No effusion or pneumothorax. Heart: The heart is mildly dilated. coronary artery calcifications are seen. Aorta: Thoracic aorta non-dilated. Severe atherosclerotic changes. Upper abdomen: Status post cholecystectomy, otherwise unremarkable. Bones: Unremarkable for age. IMPRESSION: No evidence of pulmonary embolism or other acute abnormality. Emphysematous changes and biapical sca rring.. RADIATION DOSE DELIVERED: 195.61mGy.cm Total DLP DATA REPOSITORY: All CT scans at this facility are submitted to the National Radiology Data Registry (NRDR) Dose Index Registry (DIR) with the [employer] ([employer]). RADIATION OPTIMIZATION: All CT scans at this facility use at least one of these dose optimization te chniques: automated exposure control; mA and/or kV adjustment per patient size (includes targeted exa ms where dose is matched to clinical indication); or iterative reconstruction.
[2021-03-23 14:01] LABS: ALT 30 U/L (14-59); AST 35 U/L (15-37); Albumin 3.3 g/dL (3.4-5.0); Alkaline Phosphatase 68 U/L (46-116); Anion Gap 9.3 mmol/L (3-11); BUN 12 mg/dL (7-18); Bilirubin, Total 0.2 mg/dL (0.2-1.0); CO2 22.7 mmol/L (21.0-32.0); CREATININE 0.9 mg/dL (0.55-1.02); Calcium 8.3 mg/dL (8.5-10.1); Chloride 107 mmol/L (98-107); Glucose 99 mg/dL (74-106); Magnesium 1.7 mg/dL (1.8-2.4); NT-proBNP 303 pg/mL (<300); Potassium 3.9 mmol/L (3.5-5.1); Sodium 139 mmol/L (136-145); Total Protein 6.9 g/dL (6.4-8.2); Troponin I < 0.05 ng/mL (<0.06)
[2021-03-23 14:07] LABS: D-Dimer 1949 ng/mlFEU (<500)
[2021-03-23 14:29] LABS: COVID-19 PCR Negative (Negative)
[2021-03-23] MEDS: Omnipaque 350 MG/ML 100 ML BTL IJ (14:47)
[2021-03-23] MEDS: Normal Saline - Diluent 50 ML VIAL IV (14:47)
--- NOTE | 2021-03-23 15:45 | RT.EKG_ITS ---
APPROVED REPORT Exam: Resting ECG Reason for Exam: sob Patient Location: E HR:74 bpm ECG Measurements Heart Rate 74 AXIS LA 134 P 27 QRSd 132 QRS -40 QT 509 T -82 QTc 565 Conclusion Sinus rhythm...normal P axis, V-rate 60- 99 RBBB and LAFB...QRSd >120mS, axis(-40,240) Abnormal T, consider ischemia, lateral leads...T <-0.20mV, I aVL V5 V6 Prolonged QT interval...QTc >500mS. T wave inversion in inferior and anterolateral leads. No STEMI. I have reviewed and interpreted ECG and agree with software generated interpretation.
[2021-03-23 16:52] LABS: Troponin I < 0.05 ng/mL (<0.06)
[2021-03-23] MEDS: Tiotropium/Olodaterol 10 PUFF INHALER 2 PUFF IH (17:43)
--- NOTE | 2021-03-23 19:27 | W.PM.HP.N ---
Date of service: 03/23/21 Time of Service: 19:27 Assessment and Plan Assessment and plan (1) Hypoxemia: Start date: 03/23/21 Status: Acute Assessment and plan: This is a 75-year-old lady with a long history of heavy tobacco use presented with a 1 week history of cough with dyspnea and new onset hypoxemia with tachypnea. She did not respond well to initial treatment and is admitted for COPD exacerbation and coverage for bronchitis at least with doxycycline. Follow-up imaging will be done if patient remains hypoxic. Aggressive respiratory care and O2 supplementation with pulmonary consultation to review patient's present status and treatment plan. She did receive 2 puffs of Stiolto in the ED but was continued on nebulizers with DuoNebs and albuterol acutely. She is a full code. (2) COPD exacerbation: Start date: 03/23/21 Status: Acute Assessment and plan: Patient will be given IV Solu-Medrol aggressive nebulizer treatments. As stated she will be covered with doxycycline with expansion of antibiotics if needed patient recently hospitalized for Lyme disease and UTI as an inpatient in early February 2021. (3) Tobacco dependence: Status: Chronic Assessment and plan: Patient is a heavy smoker and was advised to stop smoking having at least decrease from 2 to 3 packs/day to 1 pack/day. History of Present Illness History of Present Illness Chief Complaint: Dyspnea at rest with cough for 1 week Narrative: This is a 75-year-old female who has a significant history for 2 to 3 packs/day smoker now down to 1 pack/day and COPD with treatment presents with a 1 week history of dyspnea at rest and with exertion with increasing cough. She had been treated for Lyme disease recently with hospitalization. She does not require oxygen at home. She denies any hemoptysis or change in her sputum production or color. She has had no fever or rigors. In the ED she was evaluated and had hypoxemia which did not improve with treatment with pulmonary being consulted and patient being given Stiolto 2 puffs in the ED and plan for consultation with pulmonology in the morning. Because she was continued to be hypoxic on room air with a pulse oximeter of 87% and was slightly tachypneic with respirations as high as 32 repeatedly and having failed at least 2 treatments with nebulizers she was admitted for COPD exacerbation. Her CTA did not show any infiltrates but emphysema. She did not have any evidence of pulmonary emboli. She was given steroids and was started on doxycycline for possible bronchitis associated with her COPD exacerbation. Patient stated that this felt like symptoms when she had pneumonia in the past. The patient does live with her and is a full code. Review of Systems Narrative: 13 point review of systems otherwise unrevealing or stable. [facility] Medical History Abdominal aortic aneurysm Cholelithiasis COPD (chronic obstructive pulmonary disease) Depressed GERD (gastroesophageal reflux disease) Hiatal hernia Hyperlipidemia Tobacco dependence Surgical History Abdominal hysterectomy Cholecystectomy Endoscopy Intra-Articular, Open Family History Mother Personal history of malignant neoplasm OVARIAN Father No problems noted. Brother No problems noted. Brother No problems noted. Grandfather No problems noted. Grandfather No problems noted. Grandmother Heart disease Asthma Grandmother No problems noted. Son Aneurysm Stroke Son Depression Daughter No problems noted. FAMILY HISTORY Kidney stones Gallstones COPD (chronic obstructive pulmonary disease) Social History Smoking/Tobacco Use Status: Current every day Tobacco Type: cigarettes Smoking risk assessment performed?: Yes Alcohol Intake: never Drug use: Never Substance use type: does not use Do you feel safe at home: Yes Do you feel safe in your relationship?: Yes Meds Allergies and Home Medications Allergies Allergy/AdvReac Type Severity Reaction Status Date / Time Penicillins Allergy Severe Asthma Unverified 03/23/21 13:05 attack per Pt lidocaine AdvReac Severe Dizziness/L Unverified 03/23/21 13:05 ightheade Sulfa (Sulfonamide AdvReac Intermediate Wheezing, Unverified 03/23/21 13:05 Antibiotics) rash Home Medications Medication Instructions Recorded Confirmed Type cilostazol [Pletal] 100 mg PO BID 03/29/14 03/23/21 History zolpidem 10 mg PO HS 03/29/14 03/23/21 History aspirin 81 mg PO HS 04/21/14 03/23/21 History sertraline 100 mg PO HS tab-cap 02/12/16 03/23/21 History albuterol sulfate [Proventil HFA] 2 puff INHALATION QID PRN PRN #1 04/13/16 03/23/21 History hfa.aer.ad cyanocobalamin (vitamin B-12) 1,000 mcg PO DAILY 03/08/19 03/23/21 History [Vitamin B-12] gabapentin 100 mg PO TID 03/08/19 03/23/21 History lisinopril 5 mg PO HS 01/16/21 03/23/21 History dicyclomine 20 mg PO BID PRN #7 tab 02/16/21 03/23/21 Rx cholecalciferol (vitamin D3) 50 mcg PO DAILY 02/17/21 03/23/21 History [Vitamin D3] ondansetron HCl [Zofran] 4 mg PO Q8H PRN #10 tab 02/17/21 03/23/21 Rx atorvastatin 40 mg PO DAILY 02/19/21 03/23/21 History cholestyramine-aspartame 1 ea PO 1000,1900 #14 ea 02/23/21 03/23/21 Rx [Prevalite] Exam Narrative Exam Narrative: General: Patient appears older than stated age, cachectic appearing, diffuse actinic changes of her skin with coarsened features. She is alert and oriented x3. She is in no acute distress. HEENT: Normocephalic, coarsened facial features, eyes with pupils equal and reactive to light symmetrically, extraocular movement intact and sclera anicteric. Oropharynx with dry mucosa. Neck: Supple without JVD. Back: Slightly kyphotic with no CVA tenderness. Lungs: Decreased breath sounds diffusely but good air movement with slightly increased expiratory phase anteriorly with expiratory wheeze, otherwise no focalizing rales or rhonchi. Bronchovesicular breath sounds diffusely. Breast: Exam deferred. Heart: Regular rate and rhythm with no murmurs or gallops appreciated. Abdomen: Scaphoid contour, soft and nontender to palpation with no palpable hepatosplenomegaly. Genitalia/rectal: Exam deferred. Skin: Diffuse actinic changes with rough texture and thinning of the skin. Slightly decreased turgor. Warm and dry. Extremities: Without clubbing, cyanosis or pitting edema. Peripheral pulses intact. Neuro: Cranial nerves II to XII grossly intact, no focalizing motor deficits. Psych: Normal mood and affect, normal thought processes. Remote and recent memory intact. Results Imaging Imaging Studies: EXAM: CT CHEST PE CTA CLINICAL HISTORY: sob,cough,elevated dimer. TECHNIQUE: Imaging Protocol: Axial CT angiography was performed with multi-slice acquisition and multi-planar and/or 3D reconstructions. CONTRAST MATERIAL: Intravenous: Omnipaque 350 Contrast volume:60 ml COMPARISON: CT CT CHEST PE CTA from 02/20/2021 FINDINGS: Pulmonary Arteries: No evidence of filling defect to suggest pulmonary emboli. Tracheobronchial tree: Patent where visualized. Mediastinum and Tanya: No dominant adenopathy or fluid collection. Pulmonary parenchyma: No consolidation or dominant measurable mass. Biapical scarring. Moderate emphysematous changes. Pleura: No effusion or pneumothorax. Heart: The heart is mildly dilated. coronary artery calcifications are seen. Aorta: Thoracic aorta non-dilated. Severe atherosclerotic changes. Upper abdomen: Status post cholecystectomy, otherwise unremarkable. Bones: Unremarkable for age. IMPRESSION: No evidence of pulmonary embolism or other acute abnormality. Emphysematous changes and biapical scarring. Labs Result diagrams: 03/24/21 06:33 03/24/21 06:33 Labs: Laboratory Results - last 24 hr 03/23/21 03/23/21 03/23/21 13:25 13:30 13:30 WBC 8.22 RBC 4.12 Hgb 12.6 Hct 39.2 MCV 95.1 H MCH 30.6 MCHC 32.1 RDW 14.0 Plt Count 353 D MPV 9.5 Immature Gran % 0.4 Neutrophils % 53.8 Lymphocytes % 37.0 Monocytes % 6.2 Eosinophils % 2.2 Basophils % 0.4 Nucleated RBC % 0 Absolute Neutrophils 4.43 Absolute Lymphocytes 3.04 Absolute Monocytes 0.51 Absolute Eosinophils 0.18 Absolute Basophils 0.03 RBC Morphology Normal D-Dimer Sodium 139 Potassium 3.9 Chloride 107 Carbon Dioxide 22.7 Anion Gap 9.3 BUN 12 Creatinine 0.9 Estimated GFR/1.73 m2 >= 60.00 Glucose 99 Calcium 8.3 L Magnesium 1.7 L Total Bilirubin 0.2 AST 35 ALT 30 Alkaline Phosphatase 68 Troponin I < 0.05 NT-Pro-B Natriuret Pep 303 H Total Protein 6.9 Albumin 3.3 L COVID-19 Source Nasal/Nares SARS-CoV-2 (PCR) Negative 03/23/21 03/23/21 13:30 16:30 WBC RBC Hgb Hct MCV MCH MCHC RDW Plt Count MPV Immature Gran % Neutrophils % Lymphocytes % Monocytes % Eosinophils % Basophils % Nucleated RBC % Absolute Neutrophils Absolute Lymphocytes Absolute Monocytes Absolute Eosinophils Absolute Basophils RBC Morphology D-Dimer 1949 H Sodium Potassium Chloride Carbon Dioxide Anion Gap BUN Creatinine Estimated GFR/1.73 m2 Glucose Calcium Magnesium Total Bilirubin AST ALT Alkaline Phosphatase Troponin I < 0.05 NT-Pro-B Natriuret Pep Total Protein Albumin COVID-19 Source SARS-CoV-2 (PCR) Last Vital Signs Temp 36.2 C L 03/23/21 12:28 Pulse 70 03/23/21 14:30 Resp 30 H 03/23/21 18:20 BP 98/63 L 03/23/21 14:30 Pulse Ox 89 L 03/23/21 18:20
[2021-03-23 19:30] LABS: BE (Venous) -2 mmol/L (-2-3); HCO3 (Venous) 24 mmol/L (23-28); O2 Sat (Venous) 52 %; TCO2 (Venous) 22 mmol/L (24-29); pCO2 (Venous) 46 mmHg (41-51); pH (Venous) 7.32 (7.31-7.41); pO2 (Venous) 29 mmHg
[2021-03-23 21:14] LABS: TSH (W/Ref FT4) 0.32 uIU/mL (0.36-3.74)
[2021-03-23 21:32] LABS: FREE T4 0.91 ng/dL (0.76-1.46)
[2021-03-23] MEDS: methylPREDNISolone SUCC 125 MG VIAL 80 MG IVP (22:15)
[2021-03-23] MEDS: Heparin 5,000 UNITS/ML VIAL 5000 UNITS SC (22:16)
[2021-03-23] MEDS: Sertraline 50 MG TAB 100 MG PO (22:18)
[2021-03-23] MEDS: Zolpidem 10 MG TAB PO (22:18)
[2021-03-23] MEDS: Lisinopril 5 MG TAB PO (22:18)
[2021-03-23] MEDS: Aspirin E.C. 81 MG TABEC PO (22:18)
[2021-03-23] MEDS: Gabapentin 100 MG CAP PO (22:18)
[2021-03-23] MEDS: Normal Saline Flush 10 ML SYR (22:29)
[2021-03-23] MEDS: DOXYCYCLINE 100 MG in Normal Saline 100 ML IVPB (22:50)
[2021-03-23] MEDS: Cilostazol 100 MG TAB PO (22:50)
[2021-03-23] MEDS: Normal Saline 500 ML 30 ML IV (22:51)
[2021-03-24] VITALS (16 sets, daily range): BP systolic 79–123; BP diastolic 51–63; PULSE 69–79; RESP 1–30; TEMP 36–37.4; O2SAT 83–93
[2021-03-24] MEDS: Albuterol/Ipratropium 3 ML UPD VIAL UPD ×3 (03:19→14:54)
[2021-03-24] MEDS: methylPREDNISolone SUCC 125 MG VIAL 80 MG IVP ×2 (06:05→13:10)
[2021-03-24] MEDS: Normal Saline Flush 10 ML SYR IVP ×4 (06:06→20:09)
[2021-03-24] MEDS: Heparin 5,000 UNITS/ML VIAL 5000 UNITS SC ×3 (06:06→21:50)
[2021-03-24 07:06] LABS: Abs Immature Grans 0.02 10^3/uL (0.0-0.06); HCT 33.6 % (36.0-46.0); HGB 10.9 g/dL (11.2-15.7); MCH 30.5 pg (27.0-33.0); MCHC 32.4 % (32.0-36.0); MCV 94.1 fL (80-95); MPV 9.4 fL (8.0-11.0); Nucleated RBC 0 %; RBC 3.57 10^6/uL (3.93-5.22); RDW 14.2 % (11.7-14.6); RDW-SD 49.3 fL; WBC 6.05 10^3/uL (4.4-10.8)
--- NOTE | 2021-03-24 07:23 | PUCON_ITS ---
General Date Of Service Date of service: 03/24/21 Time of Service: 08:00 Reason for Consult: Hypoxia Assessment and Plan Assessment and plan (1) Tobacco dependence: Status: Chronic (2) COPD exacerbation: Status: Acute (3) Prolonged Q-T interval on ECG: Status: Acute (4) Abnormal chest CT: Status: Acute (5) Hypoxia: Status: Acute Assessment and plan: This is a 75-year-old female who was admitted to the hospital for hypoxia found to be in COPD exacerbation. She continues to smoke and is unwilling to think about quitting at this time nor is she willing to accept assistance in quitting. She has not had breathing test done to confirm a diagnosis of COPD however given her symptoms as well as her CAT scan there is a high pretest probability of this being the case. I will follow her as an outpatient and formally assess her for COPD with pulmonary function testing but will recommend initiating therapy for COPD at this point given the high pretest probability. She has bilateral apical scarring present as well as a historical exposure to tuberculosis when she was a child. Also has a history of recurrent pneumonias so the by apical scarring could be related to either of these historical etiologies. COPD Exacerbation - recommend stopping IV methypred and start PO prednisone 40mg for 5 days - agree with doxycycline given QTc, can be switched to PO for a 5 day course - recommend Duonebs q4hr prn - recommend stiolto - I will arrange follow up for her as an outpatient Current smoking - patient unwilling to consider quitting at this time Hypoxic respiratory failure - she may have a chronic component but is hypoxic requiring O2 today - O2 qualification prior to discharge Biapical scarring - recommend Quantiferon - recommend IgG, IgA, IgM, IgG subtypes, IgE given recurrent pneumonias History of Present Illness Narrative: This is a 75-year-old female who presented to the emergency department with shortness of breath and cough for 1 week. She will do history of COPD and is a current 1 pack a day smoker. She was hypoxic in the emergency department and was placed on nasal cannula, given IV Solu-Medrol and a DuoNeb. 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 Her VBG shows no sign of CO2 retention. She did have a chest CT completed despite having a recent chest CT done [address] on this admission shows biapical scarring that abuts the apical pleura, but is parenchymal in origin. As well as significant emphysema. There is also significant airways thickening. These findings are consistent with her CAT scan obtained 1 month ago. Biapical scarring has been present as far back as 2015. She is currently written to receive 80 mg q. 8 methylprednisolone, scheduled DuoNebs every 6 and IV doxycycline. Home pulmonary medications include an albuterol inhaler as needed. She has not had pulmonary function tests completed that I can see in our system. She states that her symptoms started approximately a week ago when her became ill. She states he had a respiratory infection and is currently hospitalized for this. She seems to think it was a pneumonia caused by some type of flu, however I am wondering if she is referring to H influenza pneumonia as its not quite flu season yet. She states she is feeling much better after receiving medical care for her COPD. She states that she does have an exposure to tuberculosis as a child as one of her teachers was diagnosed with this. She states that she believes she was tested and it was negative at that time. She is also someone who has had recurrent pneumonias. Consults Consult date: 03/24/21 Review of Systems All systems reviewed & are unremarkable except as noted in HPI and below Constitutional Constitutional: Reports lethargy Cardiovascular Cardiovascular: Denies leg edema, Reports dyspnea and Reports dyspnea on exertion Respiratory Respiratory: Reports cough, Reports dyspnea and Reports dyspnea on exertion [facility] Medical History Abdominal aortic aneurysm Cholelithiasis COPD (chronic obstructive pulmonary disease) Depressed GERD (gastroesophageal reflux disease) Hiatal hernia Hyperlipidemia Tobacco dependence Surgical History Abdominal hysterectomy Cholecystectomy Endoscopy Intra-Articular, Open Family History Mother Personal history of malignant neoplasm OVARIAN Father No problems noted. Brother No problems noted. Brother No problems noted. Grandfather No problems noted. Grandfather No problems noted. Grandmother Heart disease Asthma Grandmother No problems noted. Son Aneurysm Stroke Son Depression Daughter No problems noted. FAMILY HISTORY Kidney stones Gallstones COPD (chronic obstructive pulmonary disease) Social History Smoking/Tobacco Use Status: Current every day Tobacco Type: cigarettes Smoking risk assessment performed?: Yes Alcohol Intake: never Drug use: Never Substance use type: does not use Do you feel safe at home: Yes Do you feel safe in your relationship?: Yes Visit Medication and Allergies Active Medications Generic Name Dose Route Start Last Admin Trade Name Freq PRN Reason Stop Dose Admin Acetaminophen 650 mg 03/23/21 19:12 Acetaminophen 325 Mg Tab PO Q4H PRN PRN Al Hydrox/Mg Hydrox/Simethicone 30 ml 03/23/21 19:12 Mylanta Suspension 30 Ml Cup PO Q2H PRN PRN Albuterol Sulfate 2.5 mg 03/23/21 19:07 Albuterol 2.5 Mg/3 Ml Inh Soln Vial UPD Q2H PRN PRN Albuterol/Ipratropium 3 ml 03/23/21 20:00 03/24/21 03:19 Albuterol/Ipratropium 3 Ml Upd Vial UPD 3 ml Q6H YULIA Administration Aspirin 81 mg 03/23/21 22:00 03/23/21 22:18 Aspirin E.C. 81 Mg Tabec PO 81 mg HS YULIA Administration Atorvastatin Calcium 40 mg 03/24/21 08:30 Atorvastatin 40 Mg Tab PO DAILY YULIA Cholecalciferol 2,000 units 03/24/21 08:30 Cholecalciferol (Vitamin D3) 1,000 Unit Tab PO DAILY YULIA Cholestyramine/Aspartame 1 each 03/24/21 10:00 Cholestyramine/Aspartame Pkt PO 1000,1900 YULIA Cilostazol 100 mg 03/23/21 20:00 03/23/21 22:50 Cilostazol 100 Mg Tab PO 100 mg BID YULIA Administration Cyanocobalamin 1,000 mcg 03/24/21 08:30 Cyanocobalamin 500 Mcg Tab PO DAILY YULIA Device 1 each 03/23/21 18:00 Inhaler, Assist Device MC DIRECTED YULIA Dicyclomine HCl 20 mg 03/23/21 19:25 Dicyclomine 20 Mg Tab PO BID PRN abdominal discomfort Dimethicone/Zinc Oxide 0 gm 03/23/21 19:07 Ronny Protect Cream 142 Gm Tube TP PRN PRN Docusate Sodium 100 mg 03/23/21 19:12 Docusate Sodium 100 Mg Cap PO TID PRN PRN Gabapentin 100 mg 03/23/21 20:00 03/23/21 22:18 Gabapentin 100 Mg Cap PO 100 mg TID YULIA Administration Heparin Sodium (Porcine) 5,000 units 03/24/21 06:00 03/24/21 06:06 Heparin 5,000 Units/Ml Vial SC 5,000 units Q8H YULIA Administration Sodium Chloride 500 mls @ 0 mls/hr 03/23/21 22:00 03/23/21 22:51 Saline 500ml Bag IV 30 mls/hr PRN PRN Administration As Directed Doxycycline Hyclate 100 mg/ 100 mls @ 100 mls/hr 03/24/21 10:00 Sodium Chloride IVPB Q12H [facility] IV Miscellaneous Supplies 1 each 03/23/21 13:15 Iv Access IV DIRECTED YULIA Lisinopril 5 mg 03/23/21 22:00 03/23/21 22:18 Lisinopril 5 Mg Tab PO 5 mg HS YULIA Administration Magnesium Hydroxide 30 ml 03/23/21 19:12 Milk Of Magnesia 30 Ml Cup PO DAILY PRN PRN Magnesium Oxide 400 mg 03/24/21 08:30 Magnesium Oxide 400 Mg Tab PO BID [facility] Methylprednisolone Sodium Succinate 80 mg 03/23/21 22:00 03/24/21 06:05 Methylprednisolone Succ 125 Mg Vial IVP 80 mg Q8H YULIA Administration Nicotine 21 mg 03/23/21 19:12 Nicotine 21 Mg/24 Hr Patch TD DAILY PRN PRN Ondansetron HCl 4 mg 03/23/21 19:25 Ondansetron 4 Mg Tab PO Q8H PRN Polyethylene Glycol 17 gm 03/23/21 19:12 Polyethylene Glycol 3350 17 Gm Packet PO DAILY PRN PRN Constipation Sertraline HCl 100 mg 03/23/21 22:00 03/23/21 22:18 Sertraline 50 Mg Tab PO 100 mg HS YULIA Administration Sodium Chloride 10 ml 03/23/21 22:44 03/24/21 06:06 Normal Saline Flush 10 Ml Syr IVP 10 ml PRN PRN Administration Zolpidem Tartrate 10 mg 03/23/21 22:00 03/23/21 22:18 Zolpidem 10 Mg Tab PO 10 mg HS YULIA Administration Allergies Penicillins Allergy (Severe, Unverified 03/23/21 13:05) Asthma attack per Pt lidocaine Adverse Reaction (Severe, Unverified 03/23/21 13:05) Dizziness/Lightheade Sulfa (Sulfonamide Antibiotics) Adverse Reaction (Intermediate, Unverified 03/23/21 13:05) Wheezing, rash Exam Const General: no acute distress Nutritional Appearance: well nourished [facility] Head: normocephalic Ears: external ears normal and no periauricular adenopathy General nose exam: nasal mucous membranes and turbinates normal Face and sinus: sinuses nontender Mouth: oropharynx normal and moist mucous membranes Teeth and gingiva: dentition normal Eyes General: appearance normal, both eyes and all related structures Pupils: PERRL Neck Neck: normal visual inspection and no lymphadenopathy Chest Chest: normal inspection of the chest Resp Effort & Inspection: normal respiratory effort Auscultation: clear to auscultation bilaterally, diminished lung sounds bilaterally, no rales, no rhonchi and no wheezes Cardio Rate: regular rate Rhythm: regular rhythm Heart Sounds: S1 normal, S2 normal and no murmurs Pulses: radial pulses present bilaterally GI Inspection: normal to inspection Palpation: soft Skin General skin exam: no rashes or lesions noted Neuro General: patient alert, patient awake and patient oriented x3 Extrem General: no clubbing, cyanosis or edema Psych Mental Status: mental status grossly normal Affect: normal affect Attitude: cooperative Results Last Vital Signs Temp 36.5 C 03/24/21 03:20 Pulse 69 03/24/21 03:20 Resp 21 03/24/21 03:20 BP 84/56 L 03/24/21 04:09 Pulse Ox 92 03/24/21 03:20 Labs Result diagrams: 03/24/21 06:33 03/24/21 06:33 Labs: Laboratory Results - last 24 hr 03/23/21 03/23/21 03/23/21 13:25 13:30 13:30 WBC 8.22 RBC 4.12 Hgb 12.6 Hct 39.2 MCV 95.1 H MCH 30.6 MCHC 32.1 RDW 14.0 Plt Count 353 D MPV 9.5 Immature Gran % 0.4 Neutrophils % 53.8 Lymphocytes % 37.0 Monocytes % 6.2 Eosinophils % 2.2 Basophils % 0.4 Nucleated RBC % 0 Absolute Neutrophils 4.43 Absolute Lymphocytes 3.04 Absolute Monocytes 0.51 Absolute Eosinophils 0.18 Absolute Basophils 0.03 RBC Morphology Normal D-Dimer VBG pH VBG pCO2 VBG pO2 VBG HCO3 VBG Total CO2 VBG O2 Saturation VBG Base Excess Sodium 139 Potassium 3.9 Chloride 107 Carbon Dioxide 22.7 Anion Gap 9.3 BUN 12 Creatinine 0.9 Estimated GFR/1.73 m2 >= 60.00 Glucose 99 Calcium 8.3 L Magnesium 1.7 L Total Bilirubin 0.2 AST 35 ALT 30 Alkaline Phosphatase 68 Troponin I < 0.05 NT-Pro-B Natriuret Pep 303 H Total Protein 6.9 Albumin 3.3 L TSH Free T4 COVID-19 Source Nasal/Nares SARS-CoV-2 (PCR) Negative 03/23/21 03/23/21 03/23/21 13:30 16:30 19:25 WBC RBC Hgb Hct MCV MCH MCHC RDW Plt Count MPV Immature Gran % Neutrophils % Lymphocytes % Monocytes % Eosinophils % Basophils % Nucleated RBC % Absolute Neutrophils Absolute Lymphocytes Absolute Monocytes Absolute Eosinophils Absolute Basophils RBC Morphology D-Dimer 1949 H VBG pH 7.32 VBG pCO2 46 VBG pO2 29 VBG HCO3 24 VBG Total CO2 22 L VBG O2 Saturation 52 VBG Base Excess -2 Sodium Potassium Chloride Carbon Dioxide Anion Gap BUN Creatinine Estimated GFR/1.73 m2 Glucose Calcium Magnesium Total Bilirubin AST ALT Alkaline Phosphatase Troponin I < 0.05 NT-Pro-B Natriuret Pep Total Protein Albumin TSH Free T4 COVID-19 Source SARS-CoV-2 (PCR) 03/23/21 19:25 WBC RBC Hgb Hct MCV MCH MCHC RDW Plt Count MPV Immature Gran % Neutrophils % Lymphocytes % Monocytes % Eosinophils % Basophils % Nucleated RBC % Absolute Neutrophils Absolute Lymphocytes Absolute Monocytes Absolute Eosinophils Absolute Basophils RBC Morphology D-Dimer VBG pH VBG pCO2 VBG pO2 VBG HCO3 VBG Total CO2 VBG O2 Saturation VBG Base Excess Sodium Potassium Chloride Carbon Dioxide Anion Gap BUN Creatinine Estimated GFR/1.73 m2 Glucose Calcium Magnesium Total Bilirubin AST ALT Alkaline Phosphatase Troponin I NT-Pro-B Natriuret Pep Total Protein Albumin TSH 0.32 L Free T4 0.91 COVID-19 Source SARS-CoV-2 (PCR)
[2021-03-24 07:39] LABS: ALT 23 U/L (14-59); AST 21 U/L (15-37); Alkaline Phosphatase 59 U/L (46-116); Anion Gap 12.2 mmol/L (3-11); BUN 18 mg/dL (7-18); Bilirubin, Total 0.2 mg/dL (0.2-1.0); CO2 21.8 mmol/L (21.0-32.0); Calcium 8.4 mg/dL (8.5-10.1); Chloride 107 mmol/L (98-107); Glucose 192 mg/dL (74-106); Magnesium 1.7 mg/dL (1.8-2.4); Potassium 4.1 mmol/L (3.5-5.1); Sodium 141 mmol/L (136-145); Total Protein 6.1 g/dL (6.4-8.2)
[2021-03-24] MEDS: Cholecalciferol (Vitamin D3) 1,000 UNIT TAB 2000 UNITS PO (07:42)
[2021-03-24] MEDS: Atorvastatin 40 MG TAB PO (07:43)
[2021-03-24] MEDS: Cyanocobalamin 500 MCG TAB 1000 MCG PO (07:43)
[2021-03-24] MEDS: Magnesium Oxide 400 MG TAB PO ×2 (07:43→20:09)
[2021-03-24] MEDS: Gabapentin 100 MG CAP PO (07:43)
[2021-03-24 07:59] LABS: Platelet Count 308 10^3/uL (130-400)
[2021-03-24 08:00] LABS: Absolute Basophil Count 0.06 10^3/uL (0.0-0.2); Absolute Eosinophil Count 0.18 10^3/uL (0.0-0.7); Absolute Lymphocyte Count 0.79 10^3/uL (1.2-3.4); Absolute Monocyte Count 0.12 10^3/uL (0.1-0.8); Absolute Neutrophil Count 4.84 10^3/uL (1.2-6.7); Atypical Lymphocytes % 2; Diff Comment Manual Differential; Hypochromasia 2+
[2021-03-24 08:01] LABS: Poikilocytes 2+
[2021-03-24] MEDS: Cilostazol 100 MG TAB PO ×2 (09:40→20:08)
[2021-03-24] MEDS: Cholestyramine/Aspartame PKT 1 EACH PO (09:40)
[2021-03-24] MEDS: DOXYCYCLINE 100 MG in Normal Saline 100 ML IVPB (09:41)
[2021-03-24] MEDS: MAGNESIUM SULFATE 2 GM/50 ML BAG IVPB (11:20)
--- NOTE | 2021-03-24 14:03 | INITIAL_ITS ---
- If Service Date Differs Date of service: 03/24/21 Time of Service: 14:03 Care Management Initial Assess REASON FOR HOSPITALIZATION:: COPD exacerbation PAST MEDICAL HISTORY/PAST SURGICAL HISTORY:: Medical History . Abdominal aortic aneurysm. Cholelithiasis. COPD (chronic obstructive pulmonary disease). Depressed. GERD (gastroesophageal reflux disease). Hiatal hernia. Hyperlipidemia. Tobacco dependence. Surgical History . Abdominal hysterectomy. Cholecystectomy. Endoscopy. Intra-Articular, Open PREVIOUS FUNCTIONAL STATUS/SOCIAL/FAMILY SUPPORTS:: Magean lives in [facility] [place] with her Binu. She has one daughter Allyson who lives in [place] and one granddaughter. Maegan had 2 sons, both of whom are . One from suicide and one from a brain aneurysm. Maegan spends her steiner at her camp in [place] [facility] [address] [facility] [facility]. Her continues to work and joins her at camp on the weekend. Maegan was independent with ADLs etc but due to her current illness, she is weak and requires assistance. CURRENT FUNCTIONAL STATUS:: Maegan was sitting up in a chair when met with her. She stated that she has been doing well at home since she left the hospital last month. She was receiving home health for PT and nursing but services have ended as she has met her goals. Maegan informed that she got sick a few days ago and that her is in the hospital with pneumonia. She feels she caught her illness from him. Maegan also shared that she recently lost her cat and was very tearful when discussing him and the loss she feels. ADVANCE DIRECTIVES:: none on file Has patient been provided with info about the portal/API?: Yes Did the patient sign up for the portal?: No CODE STATUS:: Full Code INSURANCE COVERAGE / FINANCIAL ISSUES:: [employer] ([employer]) CURRENT HOME/COMMUNITY SERVICES/EQUIPMENT:: none PRIMARY CARE PHYSICIAN:: Nivia Mendosa POTENTIAL DISCHARGE NEEDS:: follow up with PCP and plan of care PATIENT/FAMILY EDUCATION NEEDS:: Review of discharge instructions, medications, follow up plan [employer] TRANSPORTATION:: via private vehicle with friend PLAN:: Maegan will likely be dscharged home with no new services, although she will be evaluated for the need for home oxygen. She will follow up with her community providers and plan of care and transport with a friend. CM will continue to support Maegan and assess for discharge planning needs.
--- NOTE | 2021-03-24 15:44 | W.PM.PROGNOT ---
Date of Service Date of service: 03/24/21 Time of Service: 15:45 Assessment and Plan Assessment and plan (1) Hypoxia: Status: Acute Assessment and plan: no formal diagnosis of COPD but long time smoker and likely here with copd exacerbation no evidence of pneumonia on xray. pulmonary consulted and recommendations made. continue steroid burst and doxycycline for 5 days, inhalers as advised wean oxygen as able. no home O2 at this point. (2) Tobacco dependence: Status: Chronic Assessment and plan: cessation discussed and she is not interested at this time in stopping or resources. she states she may cut down some nicotine replacement (3) DVT prophylaxis: Status: Acute Assessment and plan: heparin sq (4) Discharge planning issues: Status: Acute Assessment and plan: home with no services once medically stable. care management following discussed with dr Hicks Subjective Subjective Patient reports: no new complaints, feels better, tolerating liquids well, tolerating a regular diet, voiding w/o difficulty, shortness of breath (with activity) and afebrile Interval history since last seen: unable to wean oxygen with sats dropping on room air at rest to 84%. applied back at 2 liters nc. Exam Const General: cooperative, comfortable and ill appearing chronically Nutritional Appearance: thin Orientation: alert, awake and oriented x3 HENMT Head: normal to inspection Mouth: moist mucous membranes abnormal (slightly dry no exudates) Resp Effort & Inspection: normal respiratory effort (at rest, labored with activity) Auscultation: diminished lung sounds (throughout, no wheezing or rhonchi) Cardio Rate: regular rate Rhythm: regular rhythm GI Inspection: normal to inspection Palpation: soft Auscultation: normal bowel sounds Skin General skin exam: no rashes or lesions noted Neuro General: patient alert, patient awake, patient oriented x3 and no focal motor deficits Cognition: normal cognition Speech: speech normal Gait: normal gait Motor: muscle tone normal throughout Extrem General: normal to inspection, full ROM and no pedal edema Objective Last Vital Signs Temp 36.0 C L 03/24/21 11:28 Pulse 72 03/24/21 14:54 Resp 16 03/24/21 14:54 BP 123/63 03/24/21 11:28 Pulse Ox 92 03/24/21 14:54 Laboratory Results - last 24 hr 03/23/21 03/23/21 03/23/21 16:30 19:25 19:25 WBC RBC Hgb Hct MCV MCH MCHC RDW Plt Count MPV Immature Gran % Neutrophils % Lymphocytes % Atypical Lymphs % Monocytes % Eosinophils % Basophils % Nucleated RBC % Absolute Neutrophils Absolute Lymphocytes Absolute Monocytes Absolute Eosinophils Absolute Basophils RBC Morphology Hypochromasia Poikilocytosis VBG pH 7.32 VBG pCO2 46 VBG pO2 29 VBG HCO3 24 VBG Total CO2 22 L VBG O2 Saturation 52 VBG Base Excess -2 Sodium Potassium Chloride Carbon Dioxide Anion Gap BUN Creatinine Estimated GFR/1.73 m2 Glucose Calcium Magnesium Total Bilirubin AST ALT Alkaline Phosphatase Troponin I < 0.05 Total Protein Albumin TSH 0.32 L Free T4 0.91 Adenovirus DNA Human Metapneumovir RNA Parainfluenza 1 (PCR) Parainfluenza 2 (PCR) Parainfluenza 3 (PCR) Parainfluenza 4 (PCR) Resp Viral Spec Desc Rhinovirus (PCR) 03/24/21 03/24/21 03/24/21 06:33 06:33 Unknown WBC 6.05 RBC 3.57 L Hgb 10.9 L Hct 33.6 L MCV 94.1 MCH 30.5 MCHC 32.4 RDW 14.2 Plt Count 308 MPV 9.4 Immature Gran % See Differential Neutrophils % 80.0 Lymphocytes % 11.0 Atypical Lymphs % 2 Monocytes % 2.0 Eosinophils % 3.0 Basophils % 1.0 Nucleated RBC % 0 Absolute Neutrophils 4.84 Absolute Lymphocytes 0.79 L Absolute Monocytes 0.12 Absolute Eosinophils 0.18 Absolute Basophils 0.06 RBC Morphology See Below Hypochromasia 2+ Poikilocytosis 2+ VBG pH VBG pCO2 VBG pO2 VBG HCO3 VBG Total CO2 VBG O2 Saturation VBG Base Excess Sodium 141 Potassium 4.1 Chloride 107 Carbon Dioxide 21.8 Anion Gap 12.2 H BUN 18 D Creatinine 1.0 Estimated GFR/1.73 m2 54.20 Glucose 192 H D Calcium 8.4 L Magnesium 1.7 L Total Bilirubin 0.2 AST 21 ALT 23 Alkaline Phosphatase 59 Troponin I Total Protein 6.1 L Albumin 3.0 L TSH Free T4 Adenovirus DNA Cancelled Human Metapneumovir RNA Cancelled Parainfluenza 1 (PCR) Cancelled Parainfluenza 2 (PCR) Cancelled Parainfluenza 3 (PCR) Cancelled Parainfluenza 4 (PCR) Cancelled Resp Viral Spec Desc Cancelled Rhinovirus (PCR) Cancelled
[2021-03-24] MEDS: Doxycycline Hyclate 100 MG CAP PO (20:08)
[2021-03-24] MEDS: Lisinopril 5 MG TAB PO (21:50)
[2021-03-24] MEDS: Zolpidem 10 MG TAB PO (21:50)
[2021-03-24] MEDS: Aspirin E.C. 81 MG TABEC PO (21:50)
[2021-03-24] MEDS: Sertraline 50 MG TAB 100 MG PO (21:50)
[2021-03-25 03:05] VITALS: BP 107/61; PULSE 84; RESP 22; TEMP 36.4; O2SAT 90
[2021-03-25] MEDS: Heparin 5,000 UNITS/ML VIAL 5000 UNITS SC (06:25)
[2021-03-25 07:30] VITALS: BP 105/62; PULSE 71; RESP 17; TEMP 36.7; O2SAT 93
[2021-03-25] MEDS: predniSONE 20 MG TAB 40 MG PO (07:47)
[2021-03-25] MEDS: Cyanocobalamin 500 MCG TAB 1000 MCG PO (07:47)
[2021-03-25] MEDS: Cholecalciferol (Vitamin D3) 1,000 UNIT TAB 2000 UNITS PO (07:48)
[2021-03-25] MEDS: Cilostazol 100 MG TAB PO (07:48)
[2021-03-25] MEDS: Atorvastatin 40 MG TAB PO (07:48)
[2021-03-25] MEDS: Doxycycline Hyclate 100 MG CAP PO (07:48)
[2021-03-25] MEDS: Gabapentin 100 MG CAP PO (07:48)
[2021-03-25] MEDS: Magnesium Oxide 400 MG TAB PO (07:48)
[2021-03-25 08:04] LABS: Anion Gap 6.1 mmol/L (3-11); BUN 22 mg/dL (7-18); CO2 23.9 mmol/L (21.0-32.0); CREATININE 1.1 mg/dL (0.55-1.02); Calcium 7.9 mg/dL (8.5-10.1); Chloride 110 mmol/L (98-107); Estimated GFR 48.55 (mL/min/1.73m2); Glucose 103 mg/dL (74-106); Magnesium 2.2 mg/dL (1.8-2.4); Potassium 4.5 mmol/L (3.5-5.1); Sodium 140 mmol/L (136-145)
[2021-03-25] MEDS: Tiotropium/Olodaterol 10 PUFF INHALER 2 PUFF IH (08:19)
[2021-03-25] MEDS: Cholestyramine/Aspartame PKT 1 EACH PO (10:13)
--- NOTE | 2021-03-25 11:43 | DSE_ITS ---
Date of service: 03/25/21 Time of Service: 11:43 DS: Diagnosis Discharge Diagnosis (1) COPD exacerbation: Status: Acute Asessment and Plan: treatment: doxycycline 5 days prednisone 40 mg daily for 5 days tiotropium/olodaterol daily outpatient pulmonary follow up (2) Hypoxia: Status: Acute Asessment and Plan: oxygen qualifications (3) Tobacco dependence: Status: Chronic Asessment and Plan: not wanting to quit Discharge Plan Disposition Patient Disposition: HOME Condition: Improving Discharge Details Reason For Visit: Hypoxemia, Emphysema with COPD Admit Date/Time: 03/24/21 09:09 Admit Provider: Dominik Bhatia Attending Provider: Dominik Bhatia Primary Care Provider: Nivia Mendosa Hospital Course Hospital Course: this is a 75 year old female presents to the ED with shortness of breath, found hypoxic with oxygen requirements, admitted for presumed copd exacerbation. She was given high dose steroids and doxycycline. She was seen by Dr Lui with the follow recommendations: - PO prednisone 40mg for 5 days - doxycycline given QTc, for a 5 day course - recommend Duonebs q4hr prn - recommend stiolto - outpatient pulmonology follow up We tried weaning her oxygen and where unable to. patient states her respiratory status is at baseline. She was given ambulatory oximetry test and will need oxygen at discharge which has been arranged by respiratory. She is being discharged to home with no services on new oxygen, she will complete steroid burst, course of doxycycline and on stiolto as recommended by pulmonology. She will follow up outpatient. discharge discussed with Dr Hicks. Home Meds and New Rx's Prescriptions: New doxycycline hyclate 100 mg Capsule 100 mg PO BID Qty: 5 RF: 0 prednisone 20 mg Tablet 40 mg PO DAILY Qty: 6 RF: 0 Stiolto Respimat 2.5-2.5 mcg/actuation Mist 2 puff inhalation DAILY Qty: 1 RF: 0 Continued sertraline 50 MG tablet 100 mg PO HS RF: 0 albuterol sulfate [Proventil HFA] 6.7 GM HFA aerosol inhaler 2 puff Inhalation QID PRN PRNQty: 1 RF: 6 cilostazol [Pletal] 50 MG tablet 100 mg PO BID RF: 0 zolpidem 10 MG tablet 10 mg PO HS RF: 0 aspirin 81 MG tablet,delayed release (DR/EC) 81 mg PO HS RF: 0 cyanocobalamin (vitamin B-12) [Vitamin B-12] 1,000 mcg Tablet 1,000 mcg PO DAILY RF: 0 cholecalciferol (vitamin D3) [Vitamin D3] 50 mcg (2,000 unit) Capsule 50 mcg PO DAILY RF: 0 ondansetron HCl [Zofran] 4 mg tablet 4 mg PO Q8H PRNQty: 10 RF: 0 gabapentin 100 mg capsule See Rx Instructions .ROUTE .COMPLEX RF: 0 dicyclomine 20 mg tablet 20 mg PO BID PRN (Reason: abdominal discomfort) Qty: 7 RF: 0 atorvastatin 40 mg tablet 40 mg PO DAILY RF: 0 Prevalite 4 gram Powder In Packet 1 ea PO 1000,1900 Qty: 14 RF: 0 Discontinued lisinopril 5 mg tablet 10 mg PO DAILY RF: 0 Discharge Instructions Instructions: How to Stop Smoking (DC), Cigarette Smoking and Your Health (GEN), COPD (Chronic Obstructive Pulmonary Disease) (DC) Additional Instructions: wear oxygen as directed complete antibiotics and steroids as directed. work on smoking cessation to help improve your outcomes and slow your progressive lung disease Referrals: Nivia Mendosa [Primary Care Provider] - Liasndra Lui MD [ [facility] STAFF PHYSICIAN] - Activity:: Activity as Tolerated Equipment/Supplies:: Oxygen (L/min Below) Diet:: As Tolerated Discharge Orders Discharge Orders: Discharge Order (Routine); Ordered 03/25/21 Ordered By: Gauri Valadez DS: Summary Time Spent with Patient providing and/or coordinating discharge services: Greater than 30 minutes Status at Discharge Functional status at discharge: independent ambulation Overall status at discharge: patient is progressing back to baseline Mental Status: mental status grossly normal Speech and Movement: speech and movement normal Mood: congruent mood Affect: normal affect Exam Const General: cooperative and comfortable Nutritional Appearance: thin Orientation: alert, awake and oriented x3 HENMT Head: normal to inspection Mouth: moist mucous membranes abnormal (slightly dry no exudates) Resp Effort & Inspection: normal respiratory effort (at rest, labored with activity) Auscultation: diminished lung sounds (throughout, no wheezing or rhonchi) Cardio Rate: regular rate Rhythm: regular rhythm GI Inspection: normal to inspection Palpation: soft Auscultation: normal bowel sounds Skin General skin exam: no rashes or lesions noted Neuro General: patient alert, patient awake, patient oriented x3 and no focal motor deficits Cognition: normal cognition Speech: speech normal Gait: normal gait Motor: muscle tone normal throughout Extrem General: normal to inspection, full ROM and no pedal edema Psych Mental Status: mental status grossly normal Speech and Movement: speech and movement normal Mood: congruent mood Affect: normal affect DS: Data Vitals/I&O Vitals and I&O: Vital Signs Temperature 36.4 C L 03/25/21 03:05 Temperature Source Skin 03/25/21 03:05 Pulse 84 03/25/21 03:05 Pulse Rhythm Regular 03/25/21 07:46 Pulse 72 03/23/21 19:30 Respiratory Rate 22 03/25/21 03:05 Respiratory Effort Non-Labored 03/25/21 07:46 Respiratory Depth Normal 03/25/21 07:46 Respiratory Pattern Normal 03/25/21 07:46 Blood Pressure 107/61 03/25/21 03:05 Blood Pressure Mean 69 03/23/21 14:30 Blood Pressure Position Sitting 03/23/21 12:28 Pulse Oximetry 90 L 03/25/21 03:05 Oxygen Delivery Method OxyMask 03/25/21 03:05 Oxygen Flow Rate 2 03/25/21 03:05 Pain Level 0 03/25/21 11:31 Comment 03/25/21 11:31 Intake & Output 03/24/21 03/24/21 03/25/21 11:59 23:59 11:59 Intake Total 120 / 1050 930 / 1050 550 / 550 Output Total 300 / 300 200 / 200 Balance 120 / 750 630 / 750 350 / 350 Weight 53.8 kg Intake: IV 200 / 200 Oral 120 / 850 730 / 850 550 / 550 Output: Urine 300 / 300 200 / 200 Other: Urine Color Yellow Yellow Yellow Urine Appearance Clear Clear Clear Urine Odor Normal Normal Comment Void x1 in the toilet. Urine mixed with stool. RN unable to determine urine amount. Stool Size Moderate Stool Characteristics Soft Formed Brown Voiding Methods Toilet Toilet Toilet Data Completed and Pending Labs on day of discharge: Labs from last 24 hours 03/25/21 03/25/21 03/25/21 06:46 06:46 06:46 Sodium 140 Potassium 4.5 Chloride 110 H Carbon Dioxide 23.9 Anion Gap 6.1 BUN 22 H Creatinine 1.1 H Estimated GFR/1.73 m2 48.55 Glucose 103 D Calcium 7.9 L Magnesium 2.2 IgG IgG Total Pending IgG1 Pending IgG2 Pending IgG3 Pending IgG4 Pending IgA IgM IgE Pending TB Test Ag - Nil 1 Pending TB Test Ag - Nil 2 Pending TB Test (QFT) Interp Pending 03/25/21 06:46 Sodium Potassium Chloride Carbon Dioxide Anion Gap BUN Creatinine Estimated GFR/1.73 m2 Glucose Calcium Magnesium IgG Pending IgG Total IgG1 IgG2 IgG3 IgG4 IgA Pending IgM Pending IgE TB Test Ag - Nil 1 TB Test Ag - Nil 2 TB Test (QFT) Interp PFS Medical History Abdominal aortic aneurysm Cholelithiasis COPD (chronic obstructive pulmonary disease) Depressed GERD (gastroesophageal reflux disease) Hiatal hernia Hyperlipidemia Tobacco dependence Surgical History Abdominal hysterectomy Cholecystectomy Endoscopy Intra-Articular, Open Family History Mother Personal history of malignant neoplasm OVARIAN Father No problems noted. Brother No problems noted. Brother No problems noted. Grandfather No problems noted. Grandfather No problems noted. Grandmother Heart disease Asthma Grandmother No problems noted. Son Aneurysm Stroke Son Depression Daughter No problems noted. FAMILY HISTORY Kidney stones Gallstones COPD (chronic obstructive pulmonary disease) Social History Smoking/Tobacco Use Status: Current every day Tobacco Type: cigarettes Smoking risk assessment performed?: Yes Alcohol Intake: never Drug use: Never Substance use type: does not use Do you feel safe at home: Yes Do you feel safe in your relationship?: Yes
[2021-03-25 11:45] VITALS: BP 97/60; PULSE 89; RESP 16; TEMP 36.5; O2SAT 92
--- NOTE | 2021-03-25 14:31 | RESPIRATORY ---
Spoke with Person through [facility] about setting patient up on home oxygen. [place] employee stated that patient is still on medication to treat COPD exacerbation and therefore is still in an acute state and would not qualify for oxygen until patient finished medication. Gauri Zabala NP notified.
--- NOTE | 2021-03-25 16:52 | PDOC.CMDIS ---
- If Service Date Differs Date of service: 03/25/21 Time of Service: 16:52 LACE Index Scoring Tool - Questions: Length of Stay (in days): 1 Acuity (Admit via E.D.?): Yes Comorbidities: Chronic Pulmonary Disease E.D. Visits: 6 - Answers: Total Score: 10 Risk of Readmission: High Risk Care Management Discharge Reason for Hospitalization: COPD exacerbation Discharge Plan: Maegan will be discharged home with no new services.Maegan had an exercise oximetry test today and her oxygen saturation was in the low 80's. By traditional criteria, that would qualify her for home oxygen. however [facility] would not approve her for oxygen while she remained on antibiotics and steroids. ALLAN has contacted Dr. Singh's office to discuss and a return call is expected tomorrow. Maegan was unwilling to remain in the hospital but ALLAN will follow up with a phone call to her tomorrrow. also provided Maegan with an [facility] Patient Assist packet as she has concerns about costs. She will follow up with her community providers and plan of care and transport with a friend. Patient/Family Education Needs: Review of discharge instructions, medications, follow up plan Ask Me Three
[2021-03-26 09:00] LABS: IgE 290 IU/mL (<158)
[2021-03-26 10:03] LABS: IgA 171 mg/dL (85-499); IgG 779 mg/dL (610-1,616); IgM 122 mg/dL (35-242)
[2021-03-29 13:19] LABS: TB Interpretation Negative (Negative)
== END 2021-03-25 15:13 | disposition left against medical advice (07) | DRG 191 ==
LOC: ER 19:37 → MS 19:55
PROVIDERS: Nurse Practitioner Acute Care; Physician Assistant; Admitting Provider Family Medicine; Emergency Provider Physician Assistant; PCP Internal Medicine; Visit Provider Family Medicine
DX: J44.1 Chronic obstructive pulmonary disease with (acute) exacerbation (principal); I45.2 Bifascicular block; F17.210 Nicotine dependence, cigarettes, uncomplicated; R09.02 Hypoxemia; F32.9 Major depressive disorder, single episode, unspecified; K21.9 Gastro-esophageal reflux disease without esophagitis; K44.9 Diaphragmatic hernia without obstruction or gangrene; E78.5 Hyperlipidemia, unspecified; R94.31 Abnormal electrocardiogram [ECG] [EKG]; Z20.822 Contact with and (suspected) exposure to COVID-19
CPT/HCPCS: 36415; 71275; 80048; 80053; 82784; 82805; 87632; 87635; 93005; 94618; 94640; 96374; 96375; 99285; 82785; 82787; 83735; 83880; 84439; 84443; 84484; 85025; 85379; 86480; 93010; 99223; 99233; G0378; J1644; J2405; J2930; J3490; J7512; J7613; J7620